=== PATIENT | male | born 1945 | race Caucasian/White ===

== ENCOUNTER 2016-07-21 15:59 | Inpatient (IN) | payer MEDICARE, MEDICAID ==
[2016-07-21 16:28] LABS: BASO # 0.1 K/uL (0.0-0.2); BASO % 0.8 % (0.0-2.0); EOS # 0.2 K/uL (0.0-0.7); EOS % 2.4 % (0.0-4.0); HEMATOCRIT 39.2 % (35.0-51.0); LYMPH # 1.5 K/uL (1.0-4.3); LYMPH % 20.3 % (20.0-40.0); MEAN CELL VOLUME 80.7 fL (80.0-94.0); MEAN CORPUSCULAR HEMOGLOBIN 25.8 pg (27.0-31.0); MEAN CORPUSCULAR HGB CONC 31.9 g/dL (33.0-37.0); MONO # 0.6 K/uL (0.0-0.8); RED CELL DISTRIBUTION WIDTH 14.1 % (11.5-14.5); WHITE BLOOD COUNT 7.4 K/uL (4.8-10.8)
[2016-07-21] MEDS ORDERED: Sodium Chloride 0.9% 1,000 ML IV ONE (16:29)
[2016-07-21 16:39] LABS: POTASSIUM 4.9 mmol/L (3.6-5.2)
[2016-07-21 16:41] LABS: BILIRUBIN,TOTAL 0.4 mg/dL (0.2-1.3)
[2016-07-21 16:42] LABS: ALB/GLOB RATIO 1.4 (1.0-2.1); CALCIUM 8.6 mg/dl (8.6-10.4)
[2016-07-21 16:46] LABS: INR 1.3
[2016-07-21] MEDS ORDERED: (Novolin R) Insulin Human Regular 100 units/ml vial IV STA ×2 (16:49→19:51)
[2016-07-21 17:02] LABS: VENOUS BLOOD GAS BASE EXCESS 1.6 mmol/L (0.0-2.0); VENOUS BLOOD GAS PCO2 56 mmHg (40-60); VENOUS BLOOD PH 7.32 (7.32-7.43)
--- NOTE | 2016-07-21 17:06 | C.PDOC ---
Addendum entered and electronically signed by Greg Santiago MD 07/21/16 22:13 : Addendum Addendum: 07/21/16 22:13 2215: Dr. Chu returned call, would like pt obs for dehydration, hyperglycemia Original Note: History Of Present Illness <Earnestien Becker - Last Filed: 07/21/16 19:04> <Greg Santiago - Last Filed: 07/21/16 22:12> <Annika Ocampo - Last Filed: 07/22/16 18:44> Patient is a 71 year old male with a history of diabetes who presents to the ER with a complaint of increased weakness and altered mental status since this morning. Patient states he felt increased weakness and is unsure of what happened. Patient is a poor historian and does not answer any other questions. (Earnestine Becker) History Per: Patient History/Exam Limitations: no limitations Onset/Duration Of Symptoms: Hrs (Since AM) Current Symptoms Are (Timing): Still Present <Earnestine Becker - Last Filed: 07/21/16 19:04> <Greg Santiago - Last Filed: 07/21/16 22:12> <Annika Ocampo - Last Filed: 07/22/16 18:44> Time Seen by Provider: 07/21/16 16:04 Chief Complaint (Nursing): High Blood Sugar Past Medical History Reviewed: Historical Data, Nursing Documentation, Vital Signs - Medical History PMH: CVA, Dementia, Diabetes (type 2), HTN, Hypercholesterolemia, Sexually Transmitted Disease Surgical History: CABG, Coronary Stent (x2) Family History: States: No Known Family Hx - Social History Hx Tobacco Use: No Hx Alcohol Use: No Hx Substance Use: No - Immunization History Hx Tetanus Toxoid Vaccination: No Hx Influenza Vaccination: No Hx Pneumococcal Vaccination: No <Earnestine Becker - Last Filed: 07/21/16 19:04> Vital Signs: Last Vital Signs Temp 98.3 F 07/22/16 15:32 Pulse 66 07/22/16 15:32 Resp 20 07/22/16 15:32 BP 172/86 H 07/22/16 18:36 Pulse Ox 100 07/22/16 15:32 - [facility] Procedures HOME MANAGEMENT TREATMENT USING ASSIST EQUIPMENT (10/05/15) THERAPEUTIC EXERCISE TREATMENT OF MUSCULOSK LOW BACK/LE (10/05/15) Review Of Systems Except As Marked, All Systems Reviewed And Found Negative. Neurological: Positive for: Weakness, Altered Mental Status <Earnestine Becker - Last Filed: 07/21/16 19:04> Physical Exam - Physical Exam Appears: Non-toxic Skin: Normal Color, Warm, Diaphoretic (Mild), No Pale, No Rash Head: Atraumatic, Normacephalic Eye(s): bilateral: Normal Inspection, PERRL, EOMI Oral Mucosa: Moist Neck: Normal ROM, Supple Chest: Symmetrical, No Tenderness Cardiovascular: Rhythm Regular, No Friction Rub, No Murmur Respiratory: Normal Breath Sounds, No Rales, No Rhonchi, No Wheezing Gastrointestinal/Abdominal: Soft, No Tenderness Back: Normal Inspection, No CVA Tenderness Extremity: Normal ROM, No Tenderness, No Swelling Neurological/Psych: Other (Oriented x2. Follows commands appropriately.) <Earnestine Becker - Last Filed: 07/21/16 19:04> ED Course And Treatment - Laboratory Results Result Diagrams: 07/21/16 16:25 07/21/16 16:25 O2 Sat by Pulse Oximetry: 98 (Room air) Pulse Ox Interpretation: Normal Progress Note: EKG and blood work ordered. Insulin and IV fluids administered. <Earnestine Becker - Last Filed: 07/21/16 19:04> - Laboratory Results Result Diagrams: 07/21/16 16:25 07/21/16 16:25 <Greg Santiago - Last Filed: 07/21/16 22:12> - Laboratory Results Result Diagrams: 07/21/16 16:25 07/21/16 16:25 <Annika Ocampo - Last Filed: 07/22/16 18:44> Medical Decision Making <Earnestine Becker - Last Filed: 07/21/16 19:04> <Greg Santiago - Last Filed: 07/21/16 22:12> <Annika Ocampo - Last Filed: 07/22/16 18:44> Medical Decision Making: Several calls placed to Dr. Chu (Earnestine Becker) signed over @ 1900 to f/u labs and w/u for pt c/o increased glucose- unclear of insulin/diet regimen. Denies c/o CP with better glucose control in ED, pt feels hungry and wants d/c. labs, cxr, ekg wnl (no sig changes from prior) from [id number] Chu- pt prefers d/c home and opt f/u, this MD concurs (Greg Santiago) Disposition - Disposition Disposition Time: 18:59 - POA Present On Arrival: Poor Glycemic Control <Earnestine Becker - Last Filed: 07/21/16 19:04> Doctor Will See Patient In The: Office Counseled Patient/Family Regarding: Studies Performed, Diagnosis - Disposition Disposition Time: 20:18 <Greg Santiago - Last Filed: 07/21/16 22:12> <Annika Ocampo - Last Filed: 07/22/16 18:44> - Disposition Disposition: HOME/ ROUTINE Condition: GOOD - Clinical Impression Clinical Impression: Diabetes mellitus type 2, uncomplicated, Uncontrolled diabetes mellitus - Scribe Statement The provider has reviewed the documentation as recorded by the Scribe <Earnestine Becker - Last Filed: 07/21/16 19:04> <Greg Santiago - Last Filed: 07/21/16 22:12> - PA / BICYCLE ASSEMBLER / Resident Statement MD/DO has reviewed & agrees with the documentation as recorded. <Annika Ocampo - Last Filed: 07/22/16 18:44> - Scribe Statement Alessandro Agosto All medical record entries made by the Scribe were at my direction and personally dictated by me. I have reviewed the chart and agree that the record accurately reflects my personal performance of the history, physical exam, medical decision making, and the department course for this patient. I have also personally directed, reviewed, and agree with the discharge instructions and disposition. (Earnestine Becker)
[2016-07-21] MEDS ORDERED: (Novolin R) Insulin Human Regular 100 units/ml vial ONE ×2 (17:18→19:56)
--- NOTE | 2016-07-21 17:46 | RAD ---
PROCEDURE: CHEST RADIOGRAPH, 1 VIEW HISTORY: weakness, chest pain COMPARISON: 05/22/16. FINDINGS: LUNGS: Clear. PLEURA: No pneumothorax or pleural fluid seen. CARDIOVASCULAR: Sternotomy wires and CABG clips. Cardiomegaly. OSSEOUS STRUCTURES: No significant abnormalities. VISUALIZED UPPER ABDOMEN: Normal. OTHER FINDINGS: None. IMPRESSION: Cardiomegaly
[2016-07-21 19:29] LABS: RBC URINE < 1 /hpf (0-3); URINE BILIRUBIN NEGATIVE (NEGATIVE); URINE COLOR Yellow (YELLOW); URINE GLUCOSE (UA) 3+ mg/dL (Normal); URINE KETONE NEGATIVE (NEGATIVE); URINE LEUKOCYTE ESTERASE NEG Leu/uL (Negative); URINE PROTEIN 2+ mg/dL (NEGATIVE); URINE UROBILINOGEN NORMAL mg/dL (0.2-1.0); WBC URINE < 1 /hpf (0-5)
[2016-07-21 19:30] LABS: URINE BLOOD TRACE (NEGATIVE)
[2016-07-21] MEDS ORDERED: (Novolin R) Insulin Human Regular 100 units/ml vial SC ONE (19:58)
[2016-07-22] MEDS ORDERED: Oxycodone/Acetaminophen 5/325 mg Tab PO PRN (08:01)
--- NOTE | 2016-07-22 08:11 | CP.PCM.HP ---
History of Present Illness - History of Present Illness History of Present Illness: Mr. Hamm is a 69-year-old gentleman with history of type 2 diabetes on insulin that was complicated with coronary artery disease he underwent bypass surgery twice and an evaluation with a stress test was negative last year. The last cardiac catheterization had patent MEDRANO bifurcates into the left anterior descending and the diagonal. He had some deterioration with his mental status was thought to be secondary to dehydration did well and that's been few months he did not show up to the office is being followed by his private medical doctor and now he is admitted through the emergency room with weakness, near syncope, debility, with signs of dehydration Present on Admission - Present on Admission Any Indicators Present on Admission: No Review of Systems - Review of Systems Systems not reviewed;Unavailable: Acuity of Condition - Constitutional Constitutional: Anorexia, Weakness - EENT Eyes: absent: Discharge Ears: absent: Ear Discharge Nose/Mouth/Throat: absent: Epistaxis - Cardiovascular Cardiovascular: absent: Acrocyanosis, Chest Pain, Chest Pain at Rest, Diaphoresis, Orthopnea, Syncope - Respiratory Respiratory: absent: Cough, Dyspnea, Hemoptysis - Gastrointestinal Gastrointestinal: absent: Abdominal Pain, Diarrhea, Vomiting - Genitourinary Genitourinary: absent: Change in Urinary Stream Past Patient History - Infectious Disease Hx of Infectious Diseases: None - Past Medical History & Family History Past Medical History?: Yes - Past Social History Smoking Status: Never Smoked - CARDIAC Hx Cardiac Disorders: Yes Hx Hypercholesterolemia: Yes Hx Hypertension: Yes - PULMONARY Hx Respiratory Disorders: No Hx Chronic Obstructive Pulmonary Disease (COPD): No - NEUROLOGICAL Hx Neurological Disorder: Yes HX Cerebrovascular Accident: Yes - HEENT Hx HEENT Problems: No - RENAL Hx Chronic Kidney Disease: No - ENDOCRINE/METABOLIC Hx Endocrine Disorders: Yes Hx Diabetes Mellitus Type 2: Yes - HEMATOLOGICAL/ONCOLOGICAL Hx Blood Disorders: No - INTEGUMENTARY Hx Dermatological Problems: No - MUSCULOSKELETAL/RHEUMATOLOGICAL Hx Musculoskeletal Disorders: No Hx Arthritis: No Hx Falls: Yes Hx Rheumatoid Arthritis: No - GASTROINTESTINAL Hx Gastrointestinal Disorders: No - GENITOURINARY/GYNECOLOGICAL Hx Genitourinary Disorders: No - PSYCHIATRIC Hx Psychophysiologic Disorder: No Hx Substance Use: No - SURGICAL HISTORY Hx Surgeries: Yes Hx Coronary Artery Bypass Graft: Yes Hx Coronary Stent: Yes (x2) - ANESTHESIA Hx Anesthesia: Yes Hx Anesthesia Reactions: No Hx Malignant Hyperthermia: No Meds Allergies/Adverse Reactions: Allergies Allergy/AdvReac Type Severity Reaction Status Date / Time No Known Allergies Allergy Verified 07/21/16 16:08 Physical Exam - Constitutional Appears: Non-toxic - Head Exam Head Exam: ATRAUMATIC - Eye Exam Eye Exam: EOMI - ENT Exam ENT Exam: Mucous Membranes Dry - Neck Exam Neck exam: Negative for: Lymphadenopathy, Thyromegaly - Respiratory Exam Respiratory Exam: Clear to Auscultation Bilateral. absent: Rales - Cardiovascular Exam Cardiovascular Exam: REGULAR RHYTHM, Systolic Murmur - GI/Abdominal Exam GI & Abdominal Exam: Normal Bowel Sounds. absent: Organomegaly - Rectal Exam Rectal Exam: Deferred - Extremities Exam Extremities exam: Positive for: normal inspection. Negative for: calf tenderness - Neurological Exam Neurological exam: Alert, Oriented x3 - Psychiatric Exam Psychiatric exam: Normal Affect - Skin Skin Exam: Dry Results - Vital Signs Recent Vital Signs: Last Vital Signs Temp 98.6 F 07/21/16 23:48 Pulse 81 07/21/16 23:48 Resp 18 07/21/16 23:48 BP 153/78 H 07/21/16 23:48 Pulse Ox 98 07/21/16 23:48 - Labs Result Diagrams: 07/23/16 11:22 07/23/16 11:22 Labs: Laboratory Results - last 24 hr 07/22/16 07/22/16 02:06 07:13 POC Glucose (mg/dL) 233 H 263 H Assessment & Plan (1) Near syncope Status: Acute (2) Diabetes Status: Chronic (3) Physical debility Status: Chronic (4) Dehydration Status: Acute Comment: on IV fluid (5) Change in mental status Status: Acute Priority: High Comment: dehydration (6) CAD (coronary artery disease) Status: Chronic Comment: post CABG Decision To Admit - Pt Status Changed To: Hospital Disposition Of: Inpatient - Admit Certification Admit to Inpatient:: After my assessment, the patient will require hospitalization for at least two midnights. This is because of the severity of symptoms shown, intensity of services needed, and/or the medical risk in this patient being treated as an outpatient. - InPatient: Physician Admission Certification:: yes - . Bed Request Type: Regular
[2016-07-22] MEDS: Sodium Chloride 0.9% 1,000 ML IV SCH ×2 (09:24→19:24)
[2016-07-22] MEDS: Enoxaparin 40 mg Syringe SC SCH (09:24)
[2016-07-22] MEDS: (Novolin R) Insulin Human Regular 100 units/ml vial SC SCH ×3 (12:12→21:29)
[2016-07-22] MEDS: (Lantus) Insulin Glargine, Recombinant SC SCH (21:34)
[2016-07-23] MEDS: Sodium Chloride 0.9% 1,000 ML IV SCH ×2 (06:14→18:30)
[2016-07-23] MEDS: (Novolin R) Insulin Human Regular 100 units/ml vial SC SCH ×4 (08:28→22:19)
[2016-07-23 11:29] LABS: EOS # 0.2 K/uL (0.0-0.7); LYMPH # 2.1 K/uL (1.0-4.3); MONO # 0.7 K/uL (0.0-0.8); WHITE BLOOD COUNT 8.8 K/uL (4.8-10.8)
[2016-07-23 11:36] LABS: CHLORIDE 100 mmol/L (98-107)
[2016-07-23 11:37] LABS: POTASSIUM 3.9 mmol/L (3.6-5.2); SODIUM 135 mmol/L (132-148)
[2016-07-23 11:39] LABS: ALB/GLOB RATIO 1.3 (1.0-2.1); BASO # 0.1 K/uL (0.0-0.2); BASO % 0.6 % (0.0-2.0); CARBON DIOXIDE 25 mmol/L (22-30); CHOLESTEROL 124 mg/dL (0-199); EOS % 2.5 % (0.0-4.0); GFR AFRICAN-AMERICAN > 60; HEMATOCRIT 37.5 % (35.0-51.0); LYMPH % 23.6 % (20.0-40.0); MEAN CORPUSCULAR HEMOGLOBIN 25.8 pg (27.0-31.0); MEAN CORPUSCULAR HGB CONC 32.2 g/dL (33.0-37.0); MEAN PLATELET VOLUME 10.4 fL (7.2-11.7); MONO % 7.9 % (0.0-10.0); RED CELL DISTRIBUTION WIDTH 13.8 % (11.5-14.5); TOTAL PROTEIN 6.3 g/dL (6.3-8.3)
[2016-07-23 11:40] LABS: ALKALINE PHOSPHATASE 104 U/L (38-126); ALT/SGPT 54 U/L (21-72); AST/SGOT 21 U/L (17-59); BILIRUBIN,TOTAL 0.2 mg/dL (0.2-1.3); BLOOD UREA NITROGEN 19 mg/dL (9-20); CALCIUM 8.3 mg/dl (8.6-10.4); GLUCOSE,RANDOM 229 mg/dL (75-110)
[2016-07-23] MEDS: Enoxaparin 40 mg Syringe SC SCH (11:49)
--- NOTE | 2016-07-23 13:00 | CP.PCM.PN ---
Subjective - Date & Time of Evaluation Date of Evaluation: 07/23/16 Time of Evaluation: 13:00 - Subjective Subjective: Improved dehydration, noncompliance with medication A1c 9.6, difficult condition at home, arrange for rehabilitation Objective - Vital Signs/Intake and Output Vital Signs (last 24 hours): Temp Pulse Resp BP Pulse Ox 98.4 F 75 20 161/72 H 98 07/23/16 07:23 07/23/16 07:23 07/23/16 07:23 07/23/16 11:50 07/23/16 07:23 Intake and Output: 07/23/16 07/23/16 06:59 18:59 Intake Total 2000 Output Total 1000 Balance 1000 - Medications Medications: Current Medications Acetaminophen (Tylenol 325mg Tab) 650 mg PO Q6 PRN PRN Reason: Fever >100.4 F Aspirin (Ecotrin) 81 mg PO DAILY [facility] Last Admin: 07/23/16 11:49 Dose: 81 mg Docusate Sodium (Colace) 100 mg PO BID [facility] Last Admin: 07/23/16 11:50 Dose: 100 mg Enoxaparin Sodium (Lovenox) 40 mg SC DAILY [facility] Last Admin: 07/23/16 11:49 Dose: 40 mg Glimepiride (Amaryl) 2 mg PO ACB [facility] Last Admin: 07/23/16 08:28 Dose: 2 mg Guaifenesin/Dextromethorphan (Robitussin Dm) 10 ml PO Q4H PRN PRN Reason: Cough and congestion Sodium Chloride (Sodium Chloride 0.9%) 1,000 mls @ 100 mls/hr IV .Q10H [facility] Last Admin: 07/23/16 06:14 Dose: 100 mls/hr Insulin Glargine (Lantus) 20 unit SC HS [facility] Last Admin: 07/22/16 21:34 Dose: 20 units Insulin Human Regular (Novolin R) 0 unit SC ACHS [facility] PRN Reason: Protocol Last Admin: 07/23/16 12:15 Dose: 3 unit Lidocaine (Lidoderm) 1 ea TD DAILY [facility] Lisinopril (Zestril) 20 mg PO DAILY [facility] Last Admin: 07/23/16 11:49 Dose: 20 mg Metformin HCl (Glucophage) 1,000 mg PO BIDCC [facility] Last Admin: 07/23/16 08:28 Dose: 1,000 mg Metoprolol Tartrate (Lopressor) 25 mg PO BID [facility] Last Admin: 07/23/16 11:50 Dose: 25 mg Ondansetron HCl (Zofran Inj) 4 mg IVP Q6 PRN PRN Reason: Nausea/Vomiting Oxycodone/Acetaminophen (Percocet 5/325 Mg Tab) 1 tab PO Q4 PRN PRN Reason: Pain, moderate (4-7) Stop: 07/25/16 08:02 Last Admin: 07/22/16 09:21 Dose: 1 tab Pneumococcal Polyvalent Vaccine (Pneumovax 23 Vaccine) 0.5 ml IM .ONCE ONE Stop: 07/24/16 10:01 Rosuvastatin Calcium (Crestor) 10 mg PO HS [facility] Last Admin: 07/22/16 21:23 Dose: 10 mg Sucralfate (Carafate Tab) 1 gm PO BID [facility] Last Admin: 07/23/16 11:49 Dose: 1 gm Tamsulosin HCl (Flomax) 0.4 mg PO DAILY [facility] Last Admin: 07/23/16 11:49 Dose: 0.4 mg - Labs Labs: 07/23/16 11:22 07/23/16 11:22 PT 14.1 SECONDS (9.7-12.2) H 07/21/16 16:25 INR 1.3 07/21/16 16:25 APTT 28 SECONDS (21-34) 07/21/16 16:25 - Constitutional Appears: Non-toxic - Head Exam Head Exam: ATRAUMATIC - Eye Exam Eye Exam: EOMI - ENT Exam ENT Exam: Mucous Membranes Dry - Neck Exam Neck Exam: absent: Lymphadenopathy, Thyromegaly - Respiratory Exam Respiratory Exam: Clear to Ausculation Bilateral. absent: Chest Wall Tenderness , Rales - Cardiovascular Exam Cardiovascular Exam: REGULAR RHYTHM, Murmur - GI/Abdominal Exam GI & Abdominal Exam: Soft, Normal Bowel Sounds. absent: Organomegaly - Rectal Exam Rectal Exam: Deferred - Extremities Exam Extremities Exam: Normal Capillary Refill. absent: Calf Tenderness - Neurological Exam Neurological Exam: Alert, Oriented x3 - Psychiatric Exam Psychiatric exam: Depressed - Skin Skin Exam: Dry Assessment and Plan (1) Near syncope Status: Acute (2) Diabetes Status: Chronic (3) Physical debility Status: Chronic (4) Dehydration Status: Acute (5) Change in mental status Status: Acute (6) CAD (coronary artery disease) Status: Chronic
[2016-07-23] MEDS: guaiFENesin DM 200 mg-20 mg/10 ml UD PO PRN ×2 (14:26→18:29)
[2016-07-23] MEDS: Lidocaine 5% Patch TD SCH (14:26)
--- NOTE | 2016-07-23 18:07 | CARD ---
APPROVED REPORT EKG Measurement Heart [id number] <Conclusion> Sinus rhythm with 1st degree AV block Left anterior fascicular block Moderate voltage criteria for LVH, may be normal variant T wave abnormality, consider lateral ischemia Abnormal ECG
[2016-07-23] MEDS: (Lantus) Insulin Glargine, Recombinant SC SCH (22:17)
[2016-07-24] MEDS: Sodium Chloride 0.9% 1,000 ML IV SCH ×2 (00:15→10:38)
[2016-07-24] MEDS: (Novolin R) Insulin Human Regular 100 units/ml vial SC SCH ×4 (08:35→21:21)
[2016-07-24] MEDS ORDERED: Pneumococcal 23-Valent Vaccine IM ONE (10:00)
[2016-07-24] MEDS: Enoxaparin 40 mg Syringe SC SCH (10:36)
[2016-07-24] MEDS: Lidocaine 5% Patch TD SCH (10:37)
--- NOTE | 2016-07-24 19:02 | CP.PCM.PN ---
Subjective - Date & Time of Evaluation Date of Evaluation: 07/24/16 Time of Evaluation: 13:00 - Subjective Subjective: weak with debility, improved dehydration Objective - Vital Signs/Intake and Output Vital Signs (last 24 hours): Temp Pulse Resp BP Pulse Ox 98.3 F 60 20 144/81 99 07/24/16 15:07 07/24/16 15:07 07/24/16 15:07 07/24/16 17:51 07/24/16 15:07 Intake and Output: 07/24/16 07/25/16 18:59 06:59 Intake Total 1200 Balance 1200 - Medications Medications: Current Medications Acetaminophen (Tylenol 325mg Tab) 650 mg PO Q6 PRN PRN Reason: Fever >100.4 F Aspirin (Ecotrin) 81 mg PO DAILY [facility] Last Admin: 07/24/16 10:36 Dose: 81 mg Docusate Sodium (Colace) 100 mg PO BID [facility] [place] Last Admin: 07/24/16 17:50 Dose: 100 mg Enoxaparin Sodium (Lovenox) 40 mg SC DAILY [facility] [place] Last Admin: 07/24/16 10:36 Dose: 40 mg Glimepiride (Amaryl) 2 mg PO ACB [facility] [place] Last Admin: 07/24/16 08:33 Dose: 2 mg Guaifenesin/Dextromethorphan (Robitussin Dm) 10 ml PO Q4H PRN PRN Reason: Cough and congestion Last Admin: 07/23/16 18:29 Dose: 10 ml Sodium Chloride (Sodium Chloride 0.9%) 1,000 mls @ 100 mls/hr IV .Q10H [facility] [place] Last Admin: 07/24/16 10:38 Dose: Not Given Insulin Glargine (Lantus) 20 unit SC HS [facility] [place] Last Admin: 07/23/16 22:17 Dose: 20 units Insulin Human Regular (Novolin R) 0 unit SC ACHS [facility] PRN Reason: Protocol Last Admin: 07/24/16 17:51 Dose: Not Given Lidocaine (Lidoderm) 1 ea TD DAILY [facility] [place] Last Admin: 07/24/16 10:37 Dose: 1 ea Lisinopril (Zestril) 20 mg PO DAILY [facility] [place] Last Admin: 07/24/16 10:35 Dose: 20 mg Metformin HCl (Glucophage) 1,000 mg PO BIDCC [facility] [place] Last Admin: 07/24/16 17:50 Dose: 1,000 mg Metoprolol Tartrate (Lopressor) 25 mg PO BID [facility] [place] Last Admin: 07/24/16 17:51 Dose: 25 mg Ondansetron HCl (Zofran Inj) 4 mg IVP Q6 PRN PRN Reason: Nausea/Vomiting Oxycodone/Acetaminophen (Percocet 5/325 Mg Tab) 1 tab PO Q4 PRN PRN Reason: Pain, moderate (4-7) Stop: 07/25/16 08:02 Last Admin: 07/22/16 09:21 Dose: 1 tab Rosuvastatin Calcium (Crestor) 10 mg PO HS [facility] [place] Last Admin: 07/23/16 22:17 Dose: 10 mg Sucralfate (Carafate Tab) 1 gm PO BID [facility] [place] Last Admin: 07/24/16 17:50 Dose: 1 gm Tamsulosin HCl (Flomax) 0.4 mg PO DAILY [facility] [place] Last Admin: 07/24/16 10:36 Dose: 0.4 mg - Labs Labs: PT 14.1 SECONDS (9.7-12.2) H 07/21/16 16:25 INR 1.3 07/21/16 16:25 APTT 28 SECONDS (21-34) 07/21/16 16:25 - Constitutional Appears: Non-toxic - Head Exam Head Exam: ATRAUMATIC - Eye Exam Eye Exam: EOMI - ENT Exam ENT Exam: Mucous Membranes Moist - Neck Exam Neck Exam: absent: Lymphadenopathy, Thyromegaly - Respiratory Exam Respiratory Exam: Clear to Ausculation Bilateral. absent: Rales - Cardiovascular Exam Cardiovascular Exam: REGULAR RHYTHM, Murmur - GI/Abdominal Exam GI & Abdominal Exam: Normal Bowel Sounds. absent: Organomegaly - Rectal Exam Rectal Exam: Deferred - Extremities Exam Extremities Exam: Normal Capillary Refill. absent: Calf Tenderness - Neurological Exam Neurological Exam: Alert, Oriented x3 - Psychiatric Exam Psychiatric exam: Normal Mood - Skin Skin Exam: Dry Assessment and Plan (1) Diabetes Status: Chronic (2) Change in mental status Status: Acute (3) Dehydration Status: Acute (4) Near syncope Status: Acute (5) Physical debility Status: Chronic (6) CAD (coronary artery disease) Status: Chronic
[2016-07-24] MEDS: (Lantus) Insulin Glargine, Recombinant SC SCH (21:35)
[2016-07-24] MEDS: guaiFENesin DM 200 mg-20 mg/10 ml UD PO PRN (21:44)
[2016-07-25] MEDS: (Novolin R) Insulin Human Regular 100 units/ml vial SC SCH ×4 (08:16→21:53)
[2016-07-25] MEDS: Enoxaparin 40 mg Syringe SC SCH (09:20)
[2016-07-25] MEDS: Lidocaine 5% Patch TD SCH (10:41)
[2016-07-25] MEDS: guaiFENesin DM 200 mg-20 mg/10 ml UD PO PRN (18:15)
--- NOTE | 2016-07-25 19:34 | CP.PCM.PN ---
Subjective - Date & Time of Evaluation Date of Evaluation: 07/25/16 Time of Evaluation: 12:00 - Subjective Subjective: in bed with debility, for rehab Objective - Vital Signs/Intake and Output Vital Signs (last 24 hours): Temp Pulse Resp BP Pulse Ox 98.4 F 61 20 118/63 98 07/25/16 15:00 07/25/16 15:00 07/25/16 15:00 07/25/16 18:17 07/25/16 15:00 Intake and Output: 07/25/16 07/26/16 18:59 06:59 Intake Total 800 Balance 800 - Medications Medications: Current Medications Acetaminophen (Tylenol 325mg Tab) 650 mg PO Q6 PRN PRN Reason: Fever >100.4 F Aspirin (Ecotrin) 81 mg PO DAILY [facility] Last Admin: 07/25/16 09:18 Dose: 81 mg Docusate Sodium (Colace) 100 mg PO BID [facility] Last Admin: 07/25/16 18:16 Dose: 100 mg Enoxaparin Sodium (Lovenox) 40 mg SC DAILY [facility] Last Admin: 07/25/16 09:20 Dose: 40 mg Glimepiride (Amaryl) 2 mg PO ACB [facility] Last Admin: 07/25/16 08:34 Dose: 2 mg Guaifenesin/Dextromethorphan (Robitussin Dm) 10 ml PO Q4H PRN PRN Reason: Cough and congestion Last Admin: 07/25/16 18:15 Dose: 10 ml Insulin Glargine (Lantus) 20 unit SC HS [facility] Last Admin: 07/24/16 21:35 Dose: 20 units Insulin Human Regular (Novolin R) 0 unit SC ACHS [facility] PRN Reason: Protocol Last Admin: 07/25/16 16:40 Dose: 3 unit Lidocaine (Lidoderm) 1 ea TD DAILY [facility] Last Admin: 07/25/16 10:41 Dose: 1 ea Lisinopril (Zestril) 20 mg PO DAILY [facility] Last Admin: 07/25/16 10:41 Dose: 20 mg Metformin HCl (Glucophage) 1,000 mg PO BIDCC [facility] Last Admin: 07/25/16 17:30 Dose: 1,000 mg Metoprolol Tartrate (Lopressor) 25 mg PO BID [facility] Last Admin: 07/25/16 18:17 Dose: 25 mg Ondansetron HCl (Zofran Inj) 4 mg IVP Q6 PRN PRN Reason: Nausea/Vomiting Rosuvastatin Calcium (Crestor) 10 mg PO HS [facility] Last Admin: 07/24/16 21:34 Dose: 10 mg Sucralfate (Carafate Tab) 1 gm PO BID [facility] Last Admin: 07/25/16 18:15 Dose: 1 gm Tamsulosin HCl (Flomax) 0.4 mg PO DAILY [facility] Last Admin: 07/25/16 09:18 Dose: 0.4 mg - Labs Labs: PT 14.1 SECONDS (9.7-12.2) H 07/21/16 16:25 INR 1.3 07/21/16 16:25 APTT 28 SECONDS (21-34) 07/21/16 16:25 - Constitutional Appears: Non-toxic - Head Exam Head Exam: ATRAUMATIC - Eye Exam Eye Exam: EOMI - ENT Exam ENT Exam: Mucous Membranes Moist - Neck Exam Neck Exam: absent: Lymphadenopathy, Thyromegaly - Respiratory Exam Respiratory Exam: Clear to Ausculation Bilateral. absent: Rales - Cardiovascular Exam Cardiovascular Exam: REGULAR RHYTHM, Murmur - GI/Abdominal Exam GI & Abdominal Exam: Normal Bowel Sounds. absent: Organomegaly - Rectal Exam Rectal Exam: Deferred - Extremities Exam Extremities Exam: Normal Capillary Refill. absent: Calf Tenderness - Neurological Exam Neurological Exam: Alert, Oriented x3 - Psychiatric Exam Psychiatric exam: Normal Mood - Skin Skin Exam: Dry Assessment and Plan (1) Diabetes Status: Chronic (2) Change in mental status Status: Acute (3) Dehydration Status: Acute (4) Near syncope Status: Acute (5) Physical debility Status: Chronic (6) CAD (coronary artery disease) Status: Chronic
[2016-07-25] MEDS: (Lantus) Insulin Glargine, Recombinant SC SCH (21:52)
[2016-07-26] MEDS: guaiFENesin DM 200 mg-20 mg/10 ml UD PO PRN ×2 (05:25→18:07)
[2016-07-26] MEDS: (Novolin R) Insulin Human Regular 100 units/ml vial SC SCH ×4 (08:08→21:23)
[2016-07-26] MEDS: Enoxaparin 40 mg Syringe SC SCH (09:39)
[2016-07-26] MEDS: Lidocaine 5% Patch TD SCH (09:41)
--- NOTE | 2016-07-26 17:11 | CP.PCM.PN ---
Subjective - Date & Time of Evaluation Date of Evaluation: 07/26/16 Time of Evaluation: 14:00 - Subjective Subjective: NAD for rehab, observe Objective - Vital Signs/Intake and Output Vital Signs (last 24 hours): Temp Pulse Resp BP Pulse Ox 99.1 F 62 21 149/77 99 07/26/16 16:00 07/26/16 16:00 07/26/16 16:00 07/26/16 16:00 07/26/16 16:00 Intake and Output: 07/26/16 07/26/16 06:59 18:59 Intake Total 1350 Output Total 550 700 Balance 800 -700 - Medications Medications: Current Medications Acetaminophen (Tylenol 325mg Tab) 650 mg PO Q6 PRN PRN Reason: Fever >100.4 F Aspirin (Ecotrin) 81 mg PO DAILY [facility] Last Admin: 07/26/16 09:39 Dose: 81 mg Docusate Sodium (Colace) 100 mg PO BID [facility] Last Admin: 07/26/16 09:39 Dose: 100 mg Enoxaparin Sodium (Lovenox) 40 mg SC DAILY [facility] Last Admin: 07/26/16 09:39 Dose: 40 mg Glimepiride (Amaryl) 2 mg PO ACB [facility] Last Admin: 07/26/16 08:05 Dose: 2 mg Guaifenesin/Dextromethorphan (Robitussin Dm) 10 ml PO Q4H PRN PRN Reason: Cough and congestion Last Admin: 07/26/16 05:25 Dose: 10 ml Insulin Glargine (Lantus) 20 unit SC HS [facility] Last Admin: 07/25/16 21:52 Dose: 20 units Insulin Human Regular (Novolin R) 0 unit SC ACHS [facility] PRN Reason: Protocol Last Admin: 07/26/16 14:42 Dose: Not Given Lidocaine (Lidoderm) 1 ea TD DAILY [facility] Last Admin: 07/26/16 09:41 Dose: 1 ea Lisinopril (Zestril) 20 mg PO DAILY [facility] Last Admin: 07/26/16 09:39 Dose: 20 mg Metformin HCl (Glucophage) 1,000 mg PO BIDCC [facility] Last Admin: 07/26/16 08:07 Dose: 1,000 mg Metoprolol Tartrate (Lopressor) 25 mg PO BID [facility] Last Admin: 07/26/16 09:39 Dose: 25 mg Ondansetron HCl (Zofran Inj) 4 mg IVP Q6 PRN PRN Reason: Nausea/Vomiting Rosuvastatin Calcium (Crestor) 10 mg PO HS [facility] Last Admin: 07/25/16 21:52 Dose: 10 mg Sucralfate (Carafate Tab) 1 gm PO BID [facility] Last Admin: 07/26/16 09:39 Dose: 1 gm Tamsulosin HCl (Flomax) 0.4 mg PO DAILY [facility] Last Admin: 07/26/16 09:39 Dose: 0.4 mg - Labs Labs: PT 14.1 SECONDS (9.7-12.2) H 07/21/16 16:25 INR 1.3 07/21/16 16:25 APTT 28 SECONDS (21-34) 07/21/16 16:25 - Constitutional Appears: Non-toxic - Head Exam Head Exam: ATRAUMATIC - Eye Exam Eye Exam: EOMI - ENT Exam ENT Exam: Mucous Membranes Moist - Neck Exam Neck Exam: absent: Lymphadenopathy, Thyromegaly - Respiratory Exam Respiratory Exam: Clear to Ausculation Bilateral. absent: Rales - Cardiovascular Exam Cardiovascular Exam: REGULAR RHYTHM, Murmur - GI/Abdominal Exam GI & Abdominal Exam: Normal Bowel Sounds. absent: Organomegaly - Rectal Exam Rectal Exam: Deferred - Extremities Exam Extremities Exam: Normal Capillary Refill. absent: Calf Tenderness - Neurological Exam Neurological Exam: Alert, Oriented x3 - Psychiatric Exam Psychiatric exam: Normal Mood - Skin Skin Exam: Dry Assessment and Plan (1) Diabetes Status: Chronic (2) Change in mental status Status: Acute (3) Dehydration Status: Acute (4) Near syncope Status: Acute (5) Physical debility Status: Chronic (6) CAD (coronary artery disease) Status: Chronic
[2016-07-26] MEDS: (Lantus) Insulin Glargine, Recombinant SC SCH (21:23)
[2016-07-27] MEDS: guaiFENesin DM 200 mg-20 mg/10 ml UD PO PRN ×2 (01:21→10:03)
[2016-07-27] MEDS: (Novolin R) Insulin Human Regular 100 units/ml vial SC SCH ×3 (08:15→17:05)
[2016-07-27] MEDS: Enoxaparin 40 mg Syringe SC SCH (10:02)
[2016-07-27] MEDS: Lidocaine 5% Patch TD SCH (10:02)
--- NOTE | 2016-07-27 15:37 | CP.PCM.PN ---
Subjective - Date & Time of Evaluation Date of Evaluation: 07/27/16 Time of Evaluation: 13:00 - Subjective Subjective: nad hydrated, for rehab Objective - Vital Signs/Intake and Output Vital Signs (last 24 hours): Temp Pulse Resp BP Pulse Ox 98.4 F 65 20 105/54 L 67 L 07/27/16 15:00 07/27/16 15:00 07/27/16 15:00 07/27/16 15:00 07/27/16 15:00 Intake and Output: 07/27/16 07/27/16 06:59 18:59 Intake Total 240 Output Total 400 900 Balance -160 -900 - Medications Medications: Current Medications Acetaminophen (Tylenol 325mg Tab) 650 mg PO Q6 PRN PRN Reason: Fever >100.4 F Last Admin: 07/27/16 14:53 Dose: 650 mg Aspirin (Ecotrin) 81 mg PO DAILY [facility] Last Admin: 07/27/16 10:01 Dose: 81 mg Docusate Sodium (Colace) 100 mg PO BID [facility] Last Admin: 07/27/16 10:02 Dose: 100 mg Enoxaparin Sodium (Lovenox) 40 mg SC DAILY [facility] Last Admin: 07/27/16 10:02 Dose: 40 mg Glimepiride (Amaryl) 2 mg PO ACB [facility] Last Admin: 07/27/16 08:23 Dose: 2 mg Guaifenesin/Dextromethorphan (Robitussin Dm) 10 ml PO Q4H PRN PRN Reason: Cough and congestion Last Admin: 07/27/16 10:03 Dose: 10 ml Insulin Glargine (Lantus) 20 unit SC HS [facility] Last Admin: 07/26/16 21:23 Dose: 20 units Insulin Human Regular (Novolin R) 0 unit SC ACHS [facility] PRN Reason: Protocol Last Admin: 07/27/16 12:19 Dose: 3 unit Lidocaine (Lidoderm) 1 ea TD DAILY [facility] Last Admin: 07/27/16 10:02 Dose: 1 ea Lisinopril (Zestril) 20 mg PO DAILY [facility] Last Admin: 07/27/16 10:11 Dose: 20 mg Metformin HCl (Glucophage) 1,000 mg PO BIDCC [facility] Last Admin: 07/27/16 08:23 Dose: 1,000 mg Metoprolol Tartrate (Lopressor) 25 mg PO BID [facility] Last Admin: 07/27/16 10:01 Dose: 25 mg Ondansetron HCl (Zofran Inj) 4 mg IVP Q6 PRN PRN Reason: Nausea/Vomiting Rosuvastatin Calcium (Crestor) 10 mg PO HS [facility] Last Admin: 07/26/16 21:22 Dose: 10 mg Sucralfate (Carafate Tab) 1 gm PO BID [facility] Last Admin: 07/27/16 10:01 Dose: 1 gm Tamsulosin HCl (Flomax) 0.4 mg PO DAILY [facility] Last Admin: 07/27/16 10:11 Dose: 0.4 mg - Labs Labs: PT 14.1 SECONDS (9.7-12.2) H 07/21/16 16:25 INR 1.3 07/21/16 16:25 APTT 28 SECONDS (21-34) 07/21/16 16:25 - Constitutional Appears: Non-toxic - Head Exam Head Exam: ATRAUMATIC - Eye Exam Eye Exam: EOMI - ENT Exam ENT Exam: Mucous Membranes Moist - Neck Exam Neck Exam: absent: Lymphadenopathy, Thyromegaly - Respiratory Exam Respiratory Exam: Clear to Ausculation Bilateral. absent: Rales - Cardiovascular Exam Cardiovascular Exam: REGULAR RHYTHM, Murmur - GI/Abdominal Exam GI & Abdominal Exam: Normal Bowel Sounds. absent: Organomegaly - Rectal Exam Rectal Exam: Deferred - Extremities Exam Extremities Exam: Normal Capillary Refill. absent: Calf Tenderness - Neurological Exam Neurological Exam: Alert, Oriented x3 - Psychiatric Exam Psychiatric exam: Normal Mood - Skin Skin Exam: Dry Assessment and Plan (1) Diabetes Status: Chronic (2) Change in mental status Status: Acute (3) Dehydration Status: Acute (4) Near syncope Status: Acute (5) Physical debility Status: Chronic (6) CAD (coronary artery disease) Status: Chronic
[2016-07-28] MEDS: (Novolin R) Insulin Human Regular 100 units/ml vial SC SCH ×4 (07:30→21:54)
[2016-07-28] MEDS: Enoxaparin 40 mg Syringe SC SCH (09:09)
[2016-07-28] MEDS: Lidocaine 5% Patch TD SCH (10:11)
[2016-07-28] MEDS: (Lantus) Insulin Glargine, Recombinant SC SCH ×2 (21:57→22:00)
--- NOTE | 2016-07-28 23:31 | CP.PCM.PN ---
Subjective - Date & Time of Evaluation Date of Evaluation: 07/28/16 Time of Evaluation: 13:00 - Subjective Subjective: nad, hydrated, for rehab discussed with case management Objective - Vital Signs/Intake and Output Vital Signs (last 24 hours): Temp Pulse Resp BP Pulse Ox 98.3 F 61 20 148/70 98 07/28/16 16:39 07/28/16 16:39 07/28/16 16:39 07/28/16 18:20 07/28/16 16:39 - Medications Medications: Current Medications Acetaminophen (Tylenol 325mg Tab) 650 mg PO Q6 PRN PRN Reason: Fever >100.4 F Last Admin: 07/27/16 14:53 Dose: 650 mg Aspirin (Ecotrin) 81 mg PO DAILY [facility] Last Admin: 07/28/16 09:14 Dose: 81 mg Docusate Sodium (Colace) 100 mg PO BID [facility] Last Admin: 07/28/16 18:19 Dose: 100 mg Enoxaparin Sodium (Lovenox) 40 mg SC DAILY [facility] Last Admin: 07/28/16 09:09 Dose: 40 mg Glimepiride (Amaryl) 2 mg PO ACB [facility] Last Admin: 07/28/16 08:18 Dose: 2 mg Guaifenesin/Dextromethorphan (Robitussin Dm) 10 ml PO Q4H PRN PRN Reason: Cough and congestion Last Admin: 07/27/16 10:03 Dose: 10 ml Insulin Glargine (Lantus) 20 unit SC HS [facility] [place] Last Admin: 07/28/16 22:00 Dose: 20 units Insulin Human Regular (Novolin R) 0 unit SC ACHS [facility] PRN Reason: Protocol Last Admin: 07/28/16 21:54 Dose: Not Given Lidocaine (Lidoderm) 1 ea TD DAILY [facility] Last Admin: 07/28/16 10:11 Dose: 1 ea Lisinopril (Zestril) 20 mg PO DAILY [facility] Last Admin: 07/28/16 09:10 Dose: 20 mg Metformin HCl (Glucophage) 1,000 mg PO BIDCC [facility] Last Admin: 07/28/16 17:00 Dose: 1,000 mg Metoprolol Tartrate (Lopressor) 25 mg PO BID [facility] [place] Last Admin: 07/28/16 18:20 Dose: 25 mg Ondansetron HCl (Zofran Inj) 4 mg IVP Q6 PRN PRN Reason: Nausea/Vomiting Rosuvastatin Calcium (Crestor) 10 mg PO HS [facility] Last Admin: 07/28/16 21:53 Dose: 10 mg Sucralfate (Carafate Tab) 1 gm PO BID [facility] Last Admin: 07/28/16 18:18 Dose: 1 gm Tamsulosin HCl (Flomax) 0.4 mg PO DAILY [facility] Last Admin: 07/28/16 09:10 Dose: 0.4 mg - Labs Labs: PT 14.1 SECONDS (9.7-12.2) H 07/21/16 16:25 INR 1.3 07/21/16 16:25 APTT 28 SECONDS (21-34) 07/21/16 16:25 - Constitutional Appears: Non-toxic - Head Exam Head Exam: ATRAUMATIC - Eye Exam Eye Exam: EOMI - ENT Exam ENT Exam: Mucous Membranes Moist - Neck Exam Neck Exam: absent: Lymphadenopathy, Thyromegaly - Respiratory Exam Respiratory Exam: Clear to Ausculation Bilateral. absent: Rales - Cardiovascular Exam Cardiovascular Exam: REGULAR RHYTHM, Murmur - GI/Abdominal Exam GI & Abdominal Exam: Normal Bowel Sounds. absent: Organomegaly - Rectal Exam Rectal Exam: Deferred - Extremities Exam Extremities Exam: Normal Capillary Refill. absent: Calf Tenderness - Neurological Exam Neurological Exam: Alert, Oriented x3 - Psychiatric Exam Psychiatric exam: Normal Mood - Skin Skin Exam: Dry Assessment and Plan (1) Diabetes Status: Chronic (2) Change in mental status Status: Acute (3) Dehydration Status: Acute (4) Near syncope Status: Acute (5) Physical debility Status: Chronic (6) CAD (coronary artery disease) Status: Chronic
[2016-07-29] MEDS: (Novolin R) Insulin Human Regular 100 units/ml vial SC SCH ×4 (07:40→21:36)
[2016-07-29] MEDS: guaiFENesin DM 200 mg-20 mg/10 ml UD PO PRN (07:50)
[2016-07-29] MEDS: Enoxaparin 40 mg Syringe SC SCH (10:18)
[2016-07-29] MEDS: Lidocaine 5% Patch TD SCH (10:19)
[2016-07-29] MEDS: (Lantus) Insulin Glargine, Recombinant SC SCH (21:40)
[2016-07-30] MEDS: guaiFENesin DM 200 mg-20 mg/10 ml UD PO PRN (00:30)
[2016-07-30] MEDS: (Novolin R) Insulin Human Regular 100 units/ml vial SC SCH ×4 (07:44→21:43)
[2016-07-30] MEDS: Enoxaparin 40 mg Syringe SC SCH (11:00)
[2016-07-30] MEDS: Lidocaine 5% Patch TD SCH (11:29)
--- NOTE | 2016-07-30 11:59 | CP.PCM.PN ---
Subjective - Date & Time of Evaluation Date of Evaluation: 07/30/16 Time of Evaluation: 12:00 - Subjective Subjective: Stable vitals, no further weakness, still with debility for rehabilitation, awaiting appropriate disposition after discussion with case management Objective - Vital Signs/Intake and Output Vital Signs (last 24 hours): Temp Pulse Resp BP Pulse Ox 97.7 F 72 20 137/62 97 07/30/16 07:19 07/30/16 07:19 07/30/16 07:19 07/30/16 10:59 07/30/16 07:19 Intake and Output: 07/30/16 07/30/16 06:59 18:59 Intake Total 640 Output Total 700 Balance -60 - Medications Medications: Current Medications Acetaminophen (Tylenol 325mg Tab) 650 mg PO Q6 PRN PRN Reason: Fever >100.4 F Last Admin: 07/27/16 14:53 Dose: 650 mg Aspirin (Ecotrin) 81 mg PO DAILY [facility] Last Admin: 07/30/16 11:00 Dose: 81 mg Docusate Sodium (Colace) 100 mg PO BID [facility] Last Admin: 07/30/16 10:59 Dose: 100 mg Enoxaparin Sodium (Lovenox) 40 mg SC DAILY [facility] Last Admin: 07/30/16 11:00 Dose: 40 mg Glimepiride (Amaryl) 2 mg PO ACB [facility] Last Admin: 07/30/16 08:15 Dose: 2 mg Guaifenesin/Dextromethorphan (Robitussin Dm) 10 ml PO Q4H PRN PRN Reason: Cough and congestion Last Admin: 07/30/16 00:30 Dose: 10 ml Insulin Glargine (Lantus) 20 unit SC HS [facility] Last Admin: 07/29/16 21:40 Dose: 20 units Insulin Human Regular (Novolin R) 0 unit SC ACHS [facility] PRN Reason: Protocol Last Admin: 07/30/16 07:44 Dose: Not Given Lidocaine (Lidoderm) 1 ea TD DAILY [facility] Last Admin: 07/30/16 11:29 Dose: 1 ea Lisinopril (Zestril) 20 mg PO DAILY [facility] Last Admin: 07/30/16 10:59 Dose: 20 mg Metformin HCl (Glucophage) 1,000 mg PO BIDCC [facility] Last Admin: 07/30/16 08:15 Dose: 1,000 mg Metoprolol Tartrate (Lopressor) 25 mg PO BID [facility] Last Admin: 07/30/16 10:59 Dose: 25 mg Ondansetron HCl (Zofran Inj) 4 mg IVP Q6 PRN PRN Reason: Nausea/Vomiting Rosuvastatin Calcium (Crestor) 10 mg PO HS [facility] Last Admin: 07/29/16 21:35 Dose: 10 mg Sucralfate (Carafate Tab) 1 gm PO BID [facility] Last Admin: 07/30/16 11:00 Dose: 1 gm Tamsulosin HCl (Flomax) 0.4 mg PO DAILY [facility] Last Admin: 07/30/16 11:00 Dose: 0.4 mg - Labs Labs: PT 14.1 SECONDS (9.7-12.2) H 07/21/16 16:25 INR 1.3 07/21/16 16:25 APTT 28 SECONDS (21-34) 07/21/16 16:25 - Constitutional Appears: Non-toxic - Head Exam Head Exam: ATRAUMATIC - Eye Exam Eye Exam: EOMI - ENT Exam ENT Exam: Mucous Membranes Moist - Neck Exam Neck Exam: absent: Lymphadenopathy, Thyromegaly - Respiratory Exam Respiratory Exam: Clear to Ausculation Bilateral. absent: Rales - Cardiovascular Exam Cardiovascular Exam: REGULAR RHYTHM, Murmur - GI/Abdominal Exam GI & Abdominal Exam: Normal Bowel Sounds. absent: Organomegaly - Rectal Exam Rectal Exam: Deferred - Extremities Exam Extremities Exam: Normal Capillary Refill. absent: Calf Tenderness - Neurological Exam Neurological Exam: Alert, Oriented x3 - Psychiatric Exam Psychiatric exam: Normal Mood - Skin Skin Exam: Dry Assessment and Plan (1) Diabetes Status: Chronic (2) Change in mental status Status: Acute (3) Dehydration Status: Acute (4) Near syncope Status: Acute (5) Physical debility Status: Chronic (6) CAD (coronary artery disease) Status: Chronic
[2016-07-30 13:03] LABS: BASO % 0.5 % (0.0-2.0); EOS # 0.2 K/uL (0.0-0.7); EOS % 3.1 % (0.0-4.0); HEMATOCRIT 36.3 % (35.0-51.0); LYMPH # 2.2 K/uL (1.0-4.3); LYMPH % 28.8 % (20.0-40.0); MEAN CELL VOLUME 80.7 fL (80.0-94.0); MEAN CORPUSCULAR HEMOGLOBIN 26.1 pg (27.0-31.0); MEAN CORPUSCULAR HGB CONC 32.4 g/dL (33.0-37.0); MEAN PLATELET VOLUME 9.9 fL (7.2-11.7); MONO # 0.6 K/uL (0.0-0.8); MONO % 7.5 % (0.0-10.0); RED CELL DISTRIBUTION WIDTH 14.2 % (11.5-14.5); WHITE BLOOD COUNT 7.6 K/uL (4.8-10.8)
[2016-07-30 13:36] LABS: CHLORIDE 102 mmol/L (98-107); POTASSIUM 4.2 mmol/L (3.6-5.2); SODIUM 137 mmol/L (132-148)
[2016-07-30 13:39] LABS: BLOOD UREA NITROGEN 21 mg/dL (9-20); CARBON DIOXIDE 23 mmol/L (22-30); GFR AFRICAN-AMERICAN > 60; GLUCOSE,RANDOM 105 mg/dL (75-110)
[2016-07-30 13:40] LABS: CALCIUM 8.7 mg/dl (8.6-10.4)
[2016-07-30] MEDS: (Lantus) Insulin Glargine, Recombinant SC SCH (21:43)
[2016-07-30 23:11] VITALS: O2SAT 98
[2016-07-31] MEDS: (Novolin R) Insulin Human Regular 100 units/ml vial SC SCH ×2 (07:43→12:33)
[2016-07-31 08:29] VITALS: RESP 20; TEMP 97.5
[2016-07-31] MEDS: Enoxaparin 40 mg Syringe SC SCH (09:21)
[2016-07-31] MEDS: Lidocaine 5% Patch TD SCH (09:22)
[2016-07-31 09:29] VITALS: BP 133/49; PULSE 72
--- NOTE | 2016-07-31 11:43 | CP.PCM.PN ---
Subjective - Date & Time of Evaluation Date of Evaluation: 07/31/16 Time of Evaluation: 13:00 - Subjective Subjective: In bed no acute distress on physical therapy for subacute rehabilitation, awaiting appropriate disposition Objective - Vital Signs/Intake and Output Vital Signs (last 24 hours): Temp Pulse Resp BP Pulse Ox 97.5 F L 72 20 133/49 L 98 07/31/16 08:00 07/31/16 09:29 07/31/16 08:00 07/31/16 09:29 07/31/16 08:00 Intake and Output: 07/31/16 07/31/16 06:59 18:59 Intake Total 200 Output Total 450 Balance -250 - Medications Medications: Current Medications Acetaminophen (Tylenol 325mg Tab) 650 mg PO Q6 PRN PRN Reason: Fever >100.4 F Last Admin: 07/27/16 14:53 Dose: 650 mg Aspirin (Ecotrin) 81 mg PO DAILY [facility] Last Admin: 07/31/16 09:21 Dose: 81 mg Docusate Sodium (Colace) 100 mg PO BID [facility] Last Admin: 07/31/16 09:20 Dose: 100 mg Enoxaparin Sodium (Lovenox) 40 mg SC DAILY [facility] Last Admin: 07/31/16 09:21 Dose: 40 mg Glimepiride (Amaryl) 2 mg PO ACB [facility] Last Admin: 07/31/16 08:25 Dose: 2 mg Guaifenesin/Dextromethorphan (Robitussin Dm) 10 ml PO Q4H PRN PRN Reason: Cough and congestion Last Admin: 07/30/16 00:30 Dose: 10 ml Insulin Glargine (Lantus) 20 unit SC HS [facility] Last Admin: 07/30/16 21:43 Dose: 20 units Insulin Human Regular (Novolin R) 0 unit SC ACHS [facility] PRN Reason: Protocol Last Admin: 07/31/16 07:43 Dose: Not Given Lidocaine (Lidoderm) 1 ea TD DAILY [facility] Last Admin: 07/31/16 09:22 Dose: 1 ea Lisinopril (Zestril) 20 mg PO DAILY [facility] Last Admin: 07/31/16 09:21 Dose: 20 mg Metformin HCl (Glucophage) 1,000 mg PO BIDCC [facility] Last Admin: 07/31/16 08:25 Dose: 1,000 mg Metoprolol Tartrate (Lopressor) 25 mg PO BID [facility] Last Admin: 07/31/16 09:20 Dose: 25 mg Ondansetron HCl (Zofran Inj) 4 mg IVP Q6 PRN PRN Reason: Nausea/Vomiting Rosuvastatin Calcium (Crestor) 10 mg PO HS [facility] Last Admin: 07/30/16 21:43 Dose: 10 mg Sucralfate (Carafate Tab) 1 gm PO BID [facility] Last Admin: 07/31/16 09:20 Dose: 1 gm Tamsulosin HCl (Flomax) 0.4 mg PO DAILY [facility] Last Admin: 07/31/16 09:21 Dose: 0.4 mg - Labs Labs: 07/30/16 12:40 07/30/16 12:40 PT 14.1 SECONDS (9.7-12.2) H 07/21/16 16:25 INR 1.3 07/21/16 16:25 APTT 28 SECONDS (21-34) 07/21/16 16:25 - Constitutional Appears: Non-toxic - Head Exam Head Exam: ATRAUMATIC - Eye Exam Eye Exam: EOMI - ENT Exam ENT Exam: Mucous Membranes Moist - Neck Exam Neck Exam: absent: Lymphadenopathy, Thyromegaly - Respiratory Exam Respiratory Exam: Clear to Ausculation Bilateral. absent: Rales - Cardiovascular Exam Cardiovascular Exam: REGULAR RHYTHM, Murmur - GI/Abdominal Exam GI & Abdominal Exam: Soft, Normal Bowel Sounds. absent: Tenderness, Organomegaly - Rectal Exam Rectal Exam: Deferred - Extremities Exam Extremities Exam: Normal Capillary Refill. absent: Calf Tenderness - Neurological Exam Neurological Exam: Alert, Oriented x3 - Psychiatric Exam Psychiatric exam: Normal Mood - Skin Skin Exam: Dry Assessment and Plan (1) Diabetes Status: Chronic (2) Change in mental status Status: Acute (3) Dehydration Status: Acute (4) Near syncope Status: Acute (5) Physical debility Status: Chronic (6) CAD (coronary artery disease) Status: Chronic
--- NOTE | 2016-07-31 11:55 | CP.PCM.DIS ---
Provider - Provider Date of Admission: 07/23/16 14:18 Attending physician: Samuel Chu MD Time Spent in preparation of Discharge (in minutes): 20 Diagnosis - Discharge Diagnosis (1) Diabetes Status: Chronic (2) Change in mental status Status: Acute Priority: High (3) Dehydration Status: Acute (4) Near syncope Status: Acute (5) Physical debility Status: Chronic (6) CAD (coronary artery disease) Status: Chronic Hospital Course - Lab Results Lab Results: Most Recent Lab Values WBC 7.6 K/uL (4.8-10.8) 07/30/16 12:40 RBC 4.51 Mil/uL (4.40-5.90) 07/30/16 12:40 Hgb 11.8 g/dL (12.0-18.0) L 07/30/16 12:40 Hct 36.3 % (35.0-51.0) 07/30/16 12:40 MCV 80.7 fL (80.0-94.0) 07/30/16 12:40 MCH 26.1 pg (27.0-31.0) L 07/30/16 12:40 MCHC 32.4 g/dL (33.0-37.0) L 07/30/16 12:40 RDW 14.2 % (11.5-14.5) 07/30/16 12:40 Plt Count 184 K/uL (130-400) 07/30/16 12:40 MPV 9.9 fL (7.2-11.7) 07/30/16 12:40 Neut % (Auto) 60.1 % (50.0-75.0) 07/30/16 12:40 Lymph % (Auto) 28.8 % (20.0-40.0) 07/30/16 12:40 [place] % (Auto) 7.5 % (0.0-10.0) 07/30/16 12:40 Eos % (Auto) 3.1 % (0.0-4.0) 07/30/16 12:40 Baso % (Auto) 0.5 % (0.0-2.0) 07/30/16 12:40 Neut # 4.5 K/uL (1.8-7.0) 07/30/16 12:40 Lymph # 2.2 K/uL (1.0-4.3) 07/30/16 12:40 [place] # 0.6 K/uL (0.0-0.8) 07/30/16 12:40 Eos # 0.2 K/uL (0.0-0.7) 07/30/16 12:40 Baso # 0.0 K/uL (0.0-0.2) 07/30/16 12:40 PT 14.1 SECONDS (9.7-12.2) H 07/21/16 16:25 INR 1.3 07/21/16 16:25 APTT 28 SECONDS (21-34) 07/21/16 16:25 pO2 21 mm/Hg (30-55) L 07/21/16 16:55 VBG pH 7.32 (7.32-7.43) 07/21/16 16:55 VBG pCO2 56 mmHg (40-60) 07/21/16 16:55 VBG HCO3 24.3 mmol/L 07/21/16 16:55 VBG Total CO2 30.6 mmol/L (22-28) H 07/21/16 16:55 VBG O2 Sat (Calc) 37.4 % (40-65) L 07/21/16 16:55 VBG Base Excess 1.6 mmol/L (0.0-2.0) 07/21/16 16:55 VBG Potassium 4.6 mmol/L (3.6-5.2) 07/21/16 16:55 Sodium 130.0 mmol/l (132-148) L 07/21/16 16:55 Chloride 97.0 mmol/L (98-107) L 07/21/16 16:55 Glucose 443 mg/dl (75-110) H* 07/21/16 16:55 Lactate 1.4 mmol/L (0.7-2.1) 07/21/16 16:55 Crit Value Called To Shanae stuart 07/21/16 16:55 Crit Value Called By Jason chopra 07/21/16 16:55 Crit Value Read Back Y 07/21/16 16:55 Blood Gas Notified Time 1705 07/21/16 16:55 Sodium 137 mmol/L (132-148) 07/30/16 12:40 Potassium 4.2 mmol/L (3.6-5.2) 07/30/16 12:40 Chloride 102 mmol/L (98-107) 07/30/16 12:40 Carbon Dioxide 23 mmol/L (22-30) 07/30/16 12:40 Anion Gap 16 (10-20) 07/30/16 12:40 BUN 21 mg/dL (9-20) H 07/30/16 12:40 Creatinine 1.3 MG/DL (0.8-1.5) 07/30/16 12:40 Est GFR ( Amer) > 60 07/30/16 12:40 Est GFR (Non-Af Amer) 54 07/30/16 12:40 POC Glucose (mg/dL) 199 mg/dL (65-110) H 07/31/16 11:15 Random Glucose 105 mg/dL (75-110) 07/30/16 12:40 Hemoglobin A1c 9.6 % (4.2-6.5) H 07/23/16 11:22 Calcium 8.7 mg/dl (8.6-10.4) 07/30/16 12:40 Total Bilirubin 0.2 mg/dL (0.2-1.3) 07/23/16 11:22 AST 21 U/L (17-59) 07/23/16 11:22 ALT 54 U/L (21-72) 07/23/16 11:22 Alkaline Phosphatase 104 U/L (38-126) 07/23/16 11:22 Troponin I < 0.0120 ng/mL (0.00-0.120) 07/21/16 16:54 Total Protein 6.3 g/dL (6.3-8.3) 07/23/16 11:22 Albumin 3.5 g/dL (3.5-5.0) 07/23/16 11:22 Globulin 2.8 gm/dL (2.2-3.9) 07/23/16 11:22 Albumin/Globulin Ratio 1.3 (1.0-2.1) 07/23/16 11:22 Triglycerides 131 mg/dL (0-149) 07/23/16 11:22 Cholesterol 124 mg/dL (0-199) 07/23/16 11:22 LDL Cholesterol Direct 69 mg/dL (0-129) 07/23/16 11:22 HDL Cholesterol 30 mg/dL (30-70) 07/23/16 11:22 Venous Blood Potassium 4.6 mmol/L (3.6-5.2) 07/21/16 16:55 Urine Color Yellow (YELLOW) 07/21/16 19:14 Urine Clarity Clear (Clear) 07/21/16 19:14 Urine pH 5.0 (5.0-8.0) 07/21/16 19:14 Ur Specific [place] 1.027 (1.003-1.030) 07/21/16 19:14 Urine Protein 2+ mg/dL (NEGATIVE) H 07/21/16 19:14 Urine Glucose (UA) 3+ mg/dL (Normal) H 07/21/16 19:14 Urine Ketones Negative mg/dL (NEGATIVE) 07/21/16 19:14 Urine Blood Trace (NEGATIVE) H 07/21/16 19:14 Urine Nitrate Negative (NEGATIVE) 07/21/16 19:14 Urine Bilirubin Negative (NEGATIVE) 07/21/16 19:14 Urine Urobilinogen Normal mg/dL (0.2-1.0) 07/21/16 19:14 Ur Leukocyte Esterase Neg Keven/uL (Negative) 07/21/16 19:14 Urine WBC (Auto) < 1 /hpf (0-5) 07/21/16 19:14 Urine RBC (Auto) < 1 /hpf (0-3) 07/21/16 19:14 Ur Squamous Epith Cells < 1 /hpf (0-5) 07/21/16 19:14 Serum Ketones Negative (NEGATIVE) 07/21/16 16:54 - Hospital Course Hospital Course: 71 years old with history of diabetes, coronary artery disease, status post coronary artery bypass surgery2 had cardiac cath recently with no occlusive disease and recent echocardiogram with no ischemia, normal left ventricular contractility, he has recurrent admission with dehydration and uncontrolled diabetes. Recently was admitted to [facility] treated and was sent to rehabilitation, however, on the one week after discharged home with apparent poor follow-up and compliance at home in addition to some family issues the patient was readmitted with dehydration and near syncope, was hydrated and now for rehabilitation again Discharge Exam - Head Exam Head Exam: ATRAUMATIC - Eye Exam Eye Exam: EOMI - ENT Exam ENT Exam: Mucous Membranes Moist - Neck Exam Neck exam: Full Rom - Respiratory Exam Respiratory Exam: Clear to PA & Lateral. absent: Rales - Cardiovascular Exam Cardiovascular Exam: REGULAR RHYTHM, Systolic Murmur - GI/Abdominal Exam GI & Abdominal Exam: Normal Bowel Sounds, Soft. absent: Tenderness - Rectal Exam Rectal Exam: Deferred - Extremities Exam Extremities exam: normal capillary refill - Neurological Exam Neurological exam: Alert, Oriented x3 - Psychiatric Exam Psychiatric exam: Normal Mood - Skin Skin Exam: Dry Discharge Plan - Follow Up Plan Condition: GOOD Disposition: HOME/ ROUTINE Instructions: Diabetes Mellitus Type 2 in Adults (ED) Additional Instructions: continue to observe a diabetic diet and to take your diabetes meds as prescribed. Follow-up w Dr. Chu on Saturday as needed. Referrals: Samuel Chu MD [Staff Provider] -
== END 2016-07-31 14:25 | DRG 641 ==
LOC: C.ER 15:59 → C.9E 22:13 → C.3T 22:49 → OBSVTOIN 07-23 14:18 → C.3T 07-25 14:50
PROVIDERS: ADMIT Internal Medicine Cardiovascular Disease; ATTEND Internal Medicine Cardiovascular Disease
DX: E86.0 Dehydration (principal); E11.65 Type 2 diabetes mellitus with hyperglycemia; R41.82 Altered mental status, unspecified; R55 Syncope and collapse; I25.10 Atherosclerotic heart disease of native coronary artery without angina pectoris; I10 Essential (primary) hypertension; F03.90 Unspecified dementia, unspecified severity, without behavioral disturbance, psychotic disturbance, mood disturbance, and anxiety; E78.00 Pure hypercholesterolemia, unspecified; Z95.1 Presence of aortocoronary bypass graft; Z91.14 Patient's other noncompliance with medication regimen; Z95.5 Presence of coronary angioplasty implant and graft; Z86.73 Personal history of transient ischemic attack (TIA), and cerebral infarction without residual deficits; Z79.4 Long term (current) use of insulin

== ENCOUNTER 2017-04-16 21:35 | Emergency (ER) | payer MEDICARE, OTHER ==
[2017-04-16 21:45] VITALS: RESP 18
--- NOTE | 2017-04-16 22:00 | C.PDOC ---
History Of Present Illness The patient presents to the ED via ambulance after being sent from detention for evaluation of a possible fall. As per detention, patient sustained an unwitnessed fall from his wheelchair at around 20:00 today. Patient has confused baseline mental status and does not recall the event. He denies any pain and has no other complaints at this time. - HPI Time Seen by Provider: 04/16/17 22:00 Chief Complaint (Nursing): Trauma History Per: Patient, EMS History/Exam Limitations: other (baseline confused mental status ) Onset/Duration Of Symptoms: Hrs Injury Occurred (Timing): Just Before Arrival Severity: None Pain Scale Rating Of: 0 Recent travel outside of the [place]: No Additional History Per: Patient, EMS, Penitentiary - Fall Fall:Prior To Injury: Other (unwitnessed fall from wheelchair) Past Medical History Reviewed: Historical Data, Nursing Documentation, Vital Signs Vital Signs: Last Vital Signs Temp 98 F 04/16/17 23:39 Pulse 88 04/16/17 23:39 Resp 18 04/16/17 23:39 BP 160/90 H 04/16/17 23:39 Pulse Ox 99 04/17/17 00:37 - Medical History PMH: CVA, Dementia, Depression (SINGLE EPISODE), Diabetes (type 2), HTN, Hypercholesterolemia, Sexually Transmitted Disease Denies: Arthritis, COPD, Chronic Kidney Disease, Rheumatoid Arthritis Surgical History: CABG, Coronary Stent (x2) - [facility] Procedures HOME MANAGEMENT TREATMENT USING ASSIST EQUIPMENT (10/05/15) THERAPEUTIC EXERCISE TREATMENT OF MUSCULOSK LOW BACK/LE (10/05/15) Family History: States: Unknown Family Hx - Social History Hx Tobacco Use: No Hx Alcohol Use: No Hx Substance Use: No - Immunization History Hx Tetanus Toxoid Vaccination: No Hx Influenza Vaccination: Yes (01/01/2017) Hx Pneumococcal Vaccination: Yes (03/31/2015) Review Of Systems Constitutional: Negative for: Fever, Chills Cardiovascular: Negative for: Chest Pain Respiratory: Negative for: Shortness of Breath Gastrointestinal: Negative for: Abdominal Pain Musculoskeletal: Negative for: Back Pain Skin: Negative for: Rash Neurological: Negative for: Weakness, Numbness, Headache, Dizziness Psych: Negative for: Anxiety Physical Exam - Physical Exam Appears: Non-toxic, No Acute Distress Skin: Warm, Dry, No Other (hematoma or crepitus ) Head: Atraumatic, Normacephalic, No Tenderness, Swelling (mild scalp) Oral Mucosa: Moist Neck: Trachea Midline, No Midline Cervical Tenderness, Supple Chest: Symmetrical, No Deformity, No Tenderness Cardiovascular: Rhythm Regular, No Murmur Respiratory: No Accessory Muscle Use Gastrointestinal/Abdominal: Soft, No Tenderness Back: No CVA Tenderness Extremity: Normal ROM, Capillary Refill (less than 2 seconds ) Pulses: Left Dorsalis Pedis: Normal, Right Dorsalis Pedis: Normal Neurological/Psych: Other (alert and oriented x 2) Gait: Unable To Assess ED Course And Treatment O2 Sat by Pulse Oximetry: 99 (on RA) Pulse Ox Interpretation: Normal Progress Note: CT Head and CT Cervical Spine ordered. Reevaluation Time: 01:03 Reassessment Condition: Improved Disposition Counseled Patient/Family Regarding: Studies Performed, Diagnosis, Need For Followup - Disposition Referrals: Angus Dejesus MD [Staff Provider] - Disposition: HOME/ ROUTINE Disposition Time: 22:00 Condition: FAIR Instructions: Contusion in Adults (DC) Forms: [employer] [facility] (Citizen Of [place]) - Clinical Impression Clinical Impression: Contusion of head, Fall - Scribe Statement The provider has reviewed the documentation as recorded by the Scribe (Sandi Stiles) Provider Attestation: All medical record entries made by the Scribe were at my direction and personally dictated by me. I have reviewed the chart and agree that the record accurately reflects my personal performance of the history, physical exam, medical decision making, and the department course for this patient. I have also personally directed, reviewed, and agree with the discharge instructions and disposition.
[2017-04-16 23:40] VITALS: TEMP 98
--- NOTE | 2017-04-17 00:08 | CT ---
EXAM: CT Head Without Intravenous Contrast CLINICAL HISTORY: 72 years old, male; Pain; Headache and other: Fall; Patient HX: 05-22-16 TECHNIQUE: Axial computed tomography images of the head/brain without intravenous contrast. All CT scans at this facility use one or more dose reduction techniques, viz.: automated exposure control; ma/kV adjustment per patient size (including targeted exams where dose is matched to indication; i.e. head); or iterative reconstruction technique. COMPARISON: CT - HEAD W/O CONTRAST 2015-03-26 18:10 FINDINGS: Brain: Moderate atrophy. No intracranial hemorrhage. No mass. Multiple scattered foci of decreased attenuation within periventricular/subcortical white matter. No edema. Ventricles: No hydrocephalus. Cavum septum pellucidum and vergae. Bones/joints: No acute fracture. Soft tissues: Mild scalp swelling. Vasculature: Atherosclerotic disease of intracranial arteries. Sinuses: Scattered minimal to mild mucosal thickening. Mastoid air cells: No mastoid effusion. Orbits: Unremarkable as visualized. Dental: Dental caries. IMPRESSION: 1. No intracranial hemorrhage. 2. Nonspecific white matter changes. 3. Incidental/non-acute findings are described above.
--- NOTE | 2017-04-17 00:12 | CT ---
EXAM: CT Cervical Spine Without Intravenous Contrast CLINICAL HISTORY: 72 years old, male; Pain; Neck pain; Additional info: Fall TECHNIQUE: Axial computed tomography images of the cervical spine without intravenous contrast. All CT scans at this facility use one or more dose reduction techniques, viz.: automated exposure control; ma/kV adjustment per patient size (including targeted exams where dose is matched to indication; i.e. head); or iterative reconstruction technique. Coronal and sagittal reformatted images were created and reviewed. COMPARISON: No relevant prior studies available. FINDINGS: Vertebrae: No acute fracture. Facet osteoarthrosis. Discs/spinal canal/neural foramina: Mild spondylosis. Mild disc herniations within mid and lower cervical spine, suboptimally evaluated. Mild indentation thecal sac mid and lower cervical spine. Other bones/joints: Median sternotomy. Soft tissues: Unremarkable. Vasculature: Atherosclerotic disease of visualized arteries. Lung apices: Unremarkable as visualized. IMPRESSION: 1. No fracture. 2. Incidental/non-acute findings are described above.
[2017-04-17 04:21] VITALS: BP 150/85; PULSE 80; O2SAT 98
== END 2017-04-17 04:24 | disposition home or self-care (01) ==
LOC: C.ER 21:35
DX: S00.93XA Contusion of unspecified part of head, initial encounter (principal); W05.0XXA Fall from non-moving wheelchair, initial encounter; Y92.129 Unspecified place in nursing home as the place of occurrence of the external cause; I10 Essential (primary) hypertension; E78.00 Pure hypercholesterolemia, unspecified; E11.9 Type 2 diabetes mellitus without complications; F03.90 Unspecified dementia, unspecified severity, without behavioral disturbance, psychotic disturbance, mood disturbance, and anxiety; Z86.73 Personal history of transient ischemic attack (TIA), and cerebral infarction without residual deficits

== ENCOUNTER 2017-05-03 20:03 | Emergency (ER) | payer MEDICARE, OTHER ==
[2017-05-03 20:16] VITALS: BP 163/81; PULSE 86; RESP 16; TEMP 99.5; O2SAT 97
--- NOTE | 2017-05-03 21:12 | C.PDOC ---
Chief Complaint (Nursing): Upper Extremity Problem/Injury Past Medical History Vital Signs: Last Vital Signs Temp 99.5 F 05/03/17 20:12 Pulse 86 05/03/17 20:12 Resp 16 05/03/17 20:12 BP 163/81 H 05/03/17 20:12 Pulse Ox 97 05/03/17 20:12 - Medical History PMH: CVA, Dementia, Depression (SINGLE EPISODE), Diabetes (type 2), HTN, Hypercholesterolemia, Sexually Transmitted Disease Denies: Arthritis, COPD, Chronic Kidney Disease, Rheumatoid Arthritis Surgical History: CABG, Coronary Stent (x2) - [facility] Procedures HOME MANAGEMENT TREATMENT USING ASSIST EQUIPMENT (10/05/15) THERAPEUTIC EXERCISE TREATMENT OF MUSCULOSK LOW BACK/LE (10/05/15) Family History: States: Unknown Family Hx - Social History Hx Tobacco Use: No Hx Alcohol Use: No Hx Substance Use: No - Immunization History Hx Tetanus Toxoid Vaccination: No Hx Influenza Vaccination: Yes (01/01/2017) Hx Pneumococcal Vaccination: Yes (03/31/2015) ED Course And Treatment O2 Sat by Pulse Oximetry: 97 Disposition - Disposition
--- NOTE | 2017-05-03 21:17 | C.PDOC ---
History Of Present Illness 72 y/o male, from group home, presents to the ER after tripped and fell sustaining a fracture to the right humerus yesterday. Patient states that he also hit his head and right arm as well. Patient deneis any SOB, chest pain,and other complaints. Patient has a history recurrent falls, HTN, diabetes, and hyperlipidemia. Of note, patient is not able to give complete history. Chief Complaint (Nursing): Upper Extremity Problem/Injury History Per: Patient History/Exam Limitations: clinical condition Current Symptoms Are (Timing): Still Present Severity: Moderate Past Medical History Vital Signs: Last Vital Signs Temp 99.5 F 05/03/17 20:12 Pulse 86 05/03/17 20:12 Resp 16 05/03/17 20:12 BP 163/81 H 05/03/17 20:12 Pulse Ox 97 05/03/17 21:52 - Medical History PMH: CVA, Dementia, Depression (SINGLE EPISODE), Diabetes (type 2), HTN, Hypercholesterolemia, Sexually Transmitted Disease Denies: Arthritis, COPD, Chronic Kidney Disease, Rheumatoid Arthritis Surgical History: CABG, Coronary Stent (x2) - [facility] Procedures HOME MANAGEMENT TREATMENT USING ASSIST EQUIPMENT (10/05/15) THERAPEUTIC EXERCISE TREATMENT OF MUSCULOSK LOW BACK/LE (10/05/15) Family History: States: No Known Family Hx - Social History Hx Tobacco Use: No Hx Alcohol Use: No Hx Substance Use: No - Immunization History Hx Tetanus Toxoid Vaccination: No Hx Influenza Vaccination: Yes (01/01/2017) Hx Pneumococcal Vaccination: Yes (03/31/2015) Review Of Systems Except As Marked, All Systems Reviewed And Found Negative. Musculoskeletal: Positive for: Arm Pain (right arm pain) Physical Exam - Physical Exam Appears: Non-toxic, No Acute Distress Skin: Normal Color, Warm Head: Atraumatic, Normacephalic Eye(s): bilateral: Normal Inspection Nose: Normal Oral Mucosa: Moist Neck: Supple Chest: Symmetrical Cardiovascular: Rhythm Regular Respiratory: Normal Breath Sounds, No Accessory Muscle Use, No Rales, No Rhonchi , No Wheezing Gastrointestinal/Abdominal: Normal Exam, Soft, No Tenderness Extremity: No Normal ROM (limited ROM in right arm), No Deformity Pulses: Right Radial: Normal Neurological/Psych: Oriented x3, Normal Speech, Normal Motor, Normal Sensation ED Course And Treatment O2 Sat by Pulse Oximetry: 97 (RA) Pulse Ox Interpretation: Normal Medical Decision Making Medical Decision Making: Plan: -- X-Ray- Right Humerus reveals comminuted R humeral head fx nondisplaced Patient has a comminuted right humeral head fracture nondisplaced, will manage with shoulder immobilizer and referral to follow up with ortho. Disposition - Disposition Referrals: Jae Fam III, MD [Staff Provider] - Disposition: HOME/ ROUTINE Disposition Time: 21:50 Condition: GOOD Additional Instructions: maintain immobilizer until seen by ortho Forms: [employer] ([place]) - Clinical Impression Clinical Impression: Humerus head fracture - Scribe Statement The provider has reviewed the documentation as recorded by the Denishaibe Casey Jimenez Provider Attestation: All medical record entries made by the Scribe were at my direction and personally dictated by me. I have reviewed the chart and agree that the record accurately reflects my personal performance of the history, physical exam, medical decision making, and the department course for this patient. I have also personally directed, reviewed, and agree with the discharge instructions and disposition.
--- NOTE | 2017-05-04 10:53 | RAD ---
PROCEDURE: Radiographs of the right humerus. HISTORY: trauma COMPARISON: Comparison chest made with radiographs of the right humerus 05/22/2016 FINDINGS: BONES: Current study reveals a comminuted appearing fracture of the right humeral head/neck. No evidence of dislocation. Suspect surrounding soft tissue swelling. Degenerative osteoarthritis right shoulder girdle. . SOFT TISSUES: As above. OTHER FINDINGS: None. IMPRESSION: Comminuted fracture of the right humeral head/neck. Note that this report was placed in PA review folder for followup.
== END 2017-05-04 00:41 ==
LOC: C.ER 20:03
DX: S42.294D Other nondisplaced fracture of upper end of right humerus, subsequent encounter for fracture with routine healing (principal); W01.0XXD Fall on same level from slipping, tripping and stumbling without subsequent striking against object, subsequent encounter; Z91.81 History of falling

== ENCOUNTER 2018-01-26 21:55 | Inpatient (IN) | payer MEDICARE, OTHER ==
--- NOTE | 2018-01-26 21:59 | C.PDOC ---
History Of Present Illness sent from dc for fever, cough , chest congestion. Time Seen by Provider: 01/26/18 21:59 History Per: Other (nh) History/Exam Limitations: clinical condition Onset/Duration Of Symptoms: Days Current Symptoms Are (Timing): Still Present Severity: Moderate Pain Scale Rating Of: 4 Reports Recently: Seen In ED, Treated By A Physician, Hospitalized Recent travel outside of the [place]: No Additional History Per: Penitentiary Past Medical History Reviewed: Historical Data, Nursing Documentation, Vital Signs - Medical History PMH: CVA, Dementia, Depression (SINGLE EPISODE), Diabetes (type 2), HTN, Hypercholesterolemia, Sexually Transmitted Disease Denies: Arthritis, COPD, Chronic Kidney Disease, Rheumatoid Arthritis Surgical History: CABG, Coronary Stent (x2) - [facility] Procedures HOME MANAGEMENT TREATMENT USING ASSIST EQUIPMENT (10/05/15) THERAPEUTIC EXERCISE TREATMENT OF MUSCULOSK LOW BACK/LE (10/05/15) Family History: States: No Known Family Hx - Social History Hx Tobacco Use: No Hx Alcohol Use: No Hx Substance Use: No - Immunization History Hx Tetanus Toxoid Vaccination: No Hx Influenza Vaccination: Yes (01/01/2017) Hx Pneumococcal Vaccination: Yes (03/31/2015) Review Of Systems Review Of Systems: ROS cannot be obtained secondary to pt's inabilty to answer questions. Physical Exam - Physical Exam Appears: Non-toxic Skin: Warm, Dry Head: Normacephalic Eye(s): bilateral: Normal Inspection Oral Mucosa: Dry Neck: Supple Chest: Symmetrical, Other (cabg) Cardiovascular: Rhythm Regular Respiratory: Decreased Breath Sounds, No Rales, Rhonchi, No Wheezing Gastrointestinal/Abdominal: Soft, No Tenderness, No Distention, No Guarding, No Rebound Back: No CVA Tenderness Extremity: No Tenderness, Pedal Edema (trace) Extremity: Bilateral: Atraumatic Pulses: Left Dorsalis Pedis: Normal, Right Dorsalis Pedis: Normal Neurological/Psych: Slow To Respond With Command Gait: Unable To Assess ED Course And Treatment - Laboratory Results Result Diagrams: 01/26/18 22:40 01/26/18 22:40 ECG: Interpreted By Me, Viewed By Me ECG Rhythm: Sinus Rhythm (106), 1st Degree HB, Nonspecific Changes O2 Sat by Pulse Oximetry: 95 Pulse Ox Interpretation: Normal - Radiology CXR: Interpreted by Me, Viewed By Me CXR Interpretation: Yes: Infiltrates (rll), Cardiomegaly, Other (cabg). No: Fracture Disposition Discussed With Dr.: Nasir Puentes Comment: accepted the pt onhis service and took over the care at 11:23 PM Counseled Patient/Family Regarding: Studies Performed, Diagnosis - Disposition Referrals: Angus Dejesus MD [Primary Care Provider] - Disposition: HOSPITALIZED Disposition Time: 21:59 Condition: GUARDED - Clinical Impression Clinical Impression: Pneumonia, Pedal edema, Renal insufficiency, Sepsis Decision To Admit - Pt Status Changed To: Hospital Disposition Of: Inpatient - Admit Certification Admit to Inpatient:: After my assessment, the patient will require hospitalization for at least two midnights. This is because of the severity of symptoms shown, intensity of services needed, and/or the medical risk in this patient being treated as an outpatient. - InPatient: Physician Admission Certification: I certify that this patient requires 2 or more midnights of care for the following reason:: After my assessment, the patient will require hospitalization for at least two midnights. This is because of the severity of symptoms shown, intensity of services needed, and/or the medical risk in this patient being treated as an outpatient. - . Bed Request Type: Telemetry Admitting Physician: Nasir Puentes Patient Diagnosis: Renal insufficiency, Dehydration, Pneumonia, Fever
[2018-01-26] MEDS ORDERED: Sodium Chloride 0.9% 1,000 ML IV ONE (22:19)
[2018-01-26] MEDS ORDERED: Piperacillin/Tazobact 3.375 GM in Sodium Chloride 100 ML IVPB STA (22:19)
[2018-01-26] MEDS: Albuterol-Ipratrop 3 mg / 0.5 (3 ml) UD IH SCH ×3 (22:30→22:40)
[2018-01-26] MEDS ORDERED: Albuterol-Ipratrop 3 mg / 0.5 (3 ml) UD ONE (22:37)
[2018-01-26] MEDS ORDERED: Vancomycin 1 GM in Sodium Chloride 0.9% 200 ML IVPB STA (22:42)
[2018-01-26 22:43] LABS: BASO # 0.1 K/uL (0.0-0.2); BASO % 0.4 % (0.0-2.0); EOS % 0.1 % (0.0-4.0); HEMOGLOBIN 12.8 g/dL (12.0-18.0); LYMPH # 1.2 K/uL (1.0-4.3); LYMPH % 9.4 % (20.0-40.0); MEAN CELL VOLUME 79.3 fL (80.0-94.0); MEAN CORPUSCULAR HEMOGLOBIN 25.7 pg (27.0-31.0); MEAN CORPUSCULAR HGB CONC 32.4 g/dL (33.0-37.0); MEAN PLATELET VOLUME 9.3 fL (7.2-11.7); MONO # 1.4 K/uL (0.0-0.8); MONO % 10.7 % (0.0-10.0); NEUT # 10.3 K/uL (1.8-7.0); NEUT % 79.4 % (50.0-75.0); PLATELET COUNT 175 K/uL (130-400); RBC 4.99 Mil/uL (4.40-5.90)
[2018-01-26 22:43] LABS: ABG ALLEN TEST POS; ARTERIAL BLOOD GAS HCO3 21.5 mmol/L (21-28); ARTERIAL BLOOD GAS PCO2 31 mm/Hg (35-45); ARTERIAL BLOOD GAS PO2 135 mm/Hg (80-100); ARTERIAL BLOOD GAS TCO2 20.2 mmol/L (22-28)
[2018-01-26] MEDS ORDERED: Sodium Chloride 0.9% 1,000 ML IV SCH (22:46)
[2018-01-26] MEDS ORDERED: Sodium Chloride 0.9% 1,000 ML ONE (22:47)
[2018-01-26 22:48] LABS: LYMPHOCYTE 13 % (20-40); MONOCYTE 6 % (0-10); NEUTROPHIL 81 % (50-75); PLATELET ESTIMATE NORMAL (NORMAL); TOTAL CELLS COUNTED 100
[2018-01-26 22:51] LABS: INR 1.6; PROTHROMBIN TIME 17.4 SECONDS (9.7-12.2)
[2018-01-26 22:57] LABS: ALB/GLOB RATIO 1.5 (1.0-2.1); ALBUMIN 4.4 g/dL (3.5-5.0); CALCIUM 9.3 mg/dl (8.6-10.4)
[2018-01-26 23:08] LABS: TROPONIN I 0.02 ng/mL (0.00-0.120)
[2018-01-26] MEDS ORDERED: Piperacillin/Tazobact 3.375 gm 100 ML IVPB ONE (23:36)
[2018-01-26] MEDS ORDERED: guaiFENesin DM 200 mg-20 mg/10 ml UD PO PRN (23:53)
[2018-01-26] MEDS ORDERED: Alum-Mag Hydrox-Simethicone Susp (30 mL) PO PRN (23:53)
[2018-01-27 02:01] LABS: VENOUS BLOOD GAS BASE EXCESS -9.9 mmol/L (0.0-2.0); VENOUS BLOOD GAS PCO2 41 mmHg (40-60); VENOUS BLOOD GAS PO2 28 mm/Hg (30-55); VENOUS BLOOD PH 7.23 (7.32-7.43)
[2018-01-27] MEDS ORDERED: Influenza Vaccine 60 MCG/0.5 ML SYR (3 yr & up) IM ONE (03:57)
[2018-01-27] MEDS: (Novolin R) Insulin Human Regular 100 units/ml vial SC SCH ×4 (08:35→22:10)
--- NOTE | 2018-01-27 08:44 | RAD ---
Date of service: 01/26/2018 PROCEDURE: CHEST RADIOGRAPH, 1 VIEW HISTORY: SOB COMPARISON: 07/21/2016. FINDINGS: LUNGS: The lungs are well inflated and clear. PLEURA: No pneumothorax or pleural effusion. CARDIOVASCULAR: The heart is normal in size. Status post CABG. No aortic atherosclerotic calcifications present. OSSEOUS STRUCTURES: Within normal limits for the patient's age. VISUALIZED UPPER ABDOMEN: Normal. OTHER FINDINGS: None. IMPRESSION: No acute findings.
[2018-01-27] MEDS: Azithromycin 500 MG in Sodium Chloride 0.9% 250 ML IVPB SCH (09:30)
[2018-01-27] MEDS: Magnesium Hydroxide Susp 30 ml UD PO SCH ×3 (09:31→18:00)
[2018-01-27] MEDS ORDERED: METFORMIN HCL 1000 MG PO SCH (10:00)
[2018-01-27 10:25] LABS: BASO % 0.3 % (0.0-2.0); HEMOGLOBIN 11.7 g/dL (12.0-18.0); LYMPH # 0.8 K/uL (1.0-4.3); MEAN CELL VOLUME 79.1 fL (80.0-94.0); MEAN CORPUSCULAR HEMOGLOBIN 25.8 pg (27.0-31.0); MEAN CORPUSCULAR HGB CONC 32.6 g/dL (33.0-37.0); MONO # 0.9 K/uL (0.0-0.8); MONO % 7.6 % (0.0-10.0); NEUT # 10.2 K/uL (1.8-7.0); NEUT % 85.1 % (50.0-75.0); PLATELET COUNT 164 K/uL (130-400); RBC 4.52 Mil/uL (4.40-5.90); RED CELL DISTRIBUTION WIDTH 14.3 % (11.5-14.5); WHITE BLOOD COUNT 11.9 K/uL (4.8-10.8)
[2018-01-27 10:45] LABS: CALCIUM 8.9 mg/dl (8.6-10.4)
[2018-01-27 11:12] LABS: BANDS 6 % (0-2); LYMPHOCYTE 10 % (20-40); MONOCYTE 7 % (0-10); NEUTROPHIL 77 % (50-75); PLATELET ESTIMATE NORMAL (NORMAL); TOTAL CELLS COUNTED 100
[2018-01-27] MEDS ORDERED: guaiFENesin DM 100 mg-10 mg/5 ml UD PO PRN (11:15)
--- NOTE | 2018-01-27 12:28 | CP.PCM.CON ---
History of Present Illness - History of Present Illness History of Present Illness: admitted fever cough and SOB from NH rx for sepsis in progress - cont rx for HAP PMH: CVA, Dementia, Depression (SINGLE EPISODE), Diabetes (type 2), HTN, Hypercholesterolemia, Sexually Transmitted Disease Denies: Arthritis, COPD, Chronic Kidney Disease, Rheumatoid Arthritis Surgical History: CABG, Coronary Stent (x2) Past Patient History - Infectious Disease Hx of Infectious Diseases: None - Past Medical History & Family History Past Medical History?: Yes - Past Social History Smoking Status: Never Smoked - CARDIAC Hx Hypercholesterolemia: Yes Hx Hypertension: Yes - PULMONARY Hx Chronic Obstructive Pulmonary Disease (COPD): No - NEUROLOGICAL Hx Dementia: Yes - HEENT Hx HEENT Problems: No - RENAL Hx Chronic Kidney Disease: No - ENDOCRINE/METABOLIC Hx Diabetes Mellitus Type 2: Yes - HEMATOLOGICAL/ONCOLOGICAL Hx Blood Disorders: No - INTEGUMENTARY Hx Dermatological Problems: No - MUSCULOSKELETAL/RHEUMATOLOGICAL Hx Arthritis: No Hx Falls: No Hx Rheumatoid Arthritis: No - GASTROINTESTINAL Hx Gastrointestinal Disorders: No - GENITOURINARY/GYNECOLOGICAL Hx Sexually Transmitted Disorders: Yes - PSYCHIATRIC Hx Depression: Yes (SINGLE EPISODE) Hx Substance Use: No - SURGICAL HISTORY Hx Coronary Artery Bypass Graft: Yes Hx Coronary Stent: Yes (x2) - ANESTHESIA Hx Anesthesia: Yes Hx Anesthesia Reactions: No Hx Malignant Hyperthermia: No Meds Allergies/Adverse Reactions: Allergies Allergy/AdvReac Type Severity Reaction Status Date / Time No Known Allergies Allergy Verified 01/26/18 22:04 - Medications Medications: Current Medications Acetaminophen (Tylenol 325mg Tab) 325 mg PO Q4 PRN PRN Reason: Pain, Mild (1-3) Al Hydrox/Mg Hydrox/Simethicone (Maalox Plus 30 Ml) 30 ml PO Q4 PRN PRN Reason: GI distress Glimepiride (Amaryl) 2 mg PO DAILY [facility] Last Admin: 01/27/18 09:31 Dose: 2 mg Guaifenesin/Dextromethorphan (Robitussin Dm) 5 ml PO Q6 PRN PRN Reason: Cough Heparin Sodium (Porcine) (Heparin) 5,000 units SC Q8 [facility] Last Admin: 01/27/18 06:55 Dose: 5,000 units Home Med (Metformin Hcl [Glucophage]) 1,000 mg PO BID [facility] Ceftriaxone Sodium 1 gm/ (Sodium Chloride) 100 mls @ 100 mls/hr IVPB DAILY [facility]; Protocol Last Admin: 01/27/18 11:47 Dose: 100 mls/hr Azithromycin 500 mg/ Sodium (Chloride) 250 mls @ 250 mls/hr IVPB DAILY [facility]; Protocol Last Admin: 01/27/18 09:30 Dose: 250 mls/hr Sodium Chloride (Sodium Chloride 0.9%) 1,000 mls @ 60 mls/hr IV .[id number] [facility] Meropenem 500 mg/ Sodium (Chloride) 100 mls @ 100 mls/hr IVPB Q8H [facility]; Protocol Vancomycin HCl 1 gm/ Sodium (Chloride) 250 mls @ 166.7 mls/hr IVPB Q24H [facility]; Protocol Influenza Virus Vaccine (Fluzone Quad [id number]) 60 mcg IM .ONCE ONE Stop: 01/28/18 10:01 Insulin Glargine (Lantus) 20 unit SC HS [facility] Insulin Human Regular (Novolin R) 0 unit SC ACHS [facility]; Protocol Last Admin: 01/27/18 08:35 Dose: 2 unit Magnesium Hydroxide (Milk Of Magnesia) 30 ml PO TID [facility] Last Admin: 01/27/18 09:31 Dose: 30 ml Metoprolol Tartrate (Lopressor) 25 mg PO BID [facility] Last Admin: 01/27/18 09:31 Dose: 25 mg Rosuvastatin Calcium (Crestor) 10 mg PO HS [facility] Results - Vital Signs Recent Vital Signs: Last Vital Signs Temp 99.8 F H 01/27/18 08:26 Pulse 115 H 01/27/18 08:26 Resp 20 01/27/18 08:26 BP 120/73 01/27/18 09:31 Pulse Ox 100 01/27/18 08:26 - Labs Result Diagrams: 01/27/18 10:21 01/27/18 10:21 Labs: Laboratory Results - last 24 hr 01/26/18 01/26/18 01/26/18 01:40 22:09 22:30 WBC RBC Hgb Hct MCV MCH MCHC RDW Plt Count MPV Neut % (Auto) Lymph % (Auto) Gibson % (Auto) Eos % (Auto) Baso % (Auto) Neut # (Auto) Lymph # (Auto) Gibson # (Auto) Eos # (Auto) Baso # (Auto) Neutrophils % (Manual) Band Neutrophils % Lymphocytes % (Manual) Monocytes % (Manual) Platelet Estimate RBC Morphology PT INR APTT Puncture Site pCO2 pO2 28 L HCO3 ABG pH ABG Total CO2 ABG O2 Saturation ABG Base Excess Carl Test ABG Potassium VBG pH 7.23 L VBG pCO2 41 VBG HCO3 15.6 VBG Total CO2 18.5 L VBG O2 Sat (Calc) 55.6 VBG Base Excess -9.9 L VBG Potassium 4.6 A-a O2 Difference Respiratory Index Sodium 142.0 Chloride 106.0 Glucose 213 H Lactate 8.0 H* FiO2 Crit Value Called To Marcy rn Crit Value Called By Cody rt Crit Value Read Back Y Blood Gas Notified Time 200 Potassium Carbon Dioxide Anion Gap BUN Creatinine Est GFR ( Amer) Est GFR (Non-Af Amer) POC Glucose (mg/dL) 136 H Random Glucose Calcium Magnesium Total Bilirubin AST ALT Alkaline Phosphatase Troponin I NT-Pro-B Natriuret Pep Total Protein Albumin Globulin Albumin/Globulin Ratio TSH 3rd Generation Arterial Blood Potassium Venous Blood Potassium 4.6 Influenza Typ A,B (EIA) Negative for flu a/b 01/26/18 01/26/18 01/26/18 22:35 22:40 22:40 WBC 13.0 H D RBC 4.99 Hgb 12.8 Hct 39.6 MCV 79.3 L MCH 25.7 L MCHC 32.4 L RDW 14.0 Plt Count 175 MPV 9.3 Neut % (Auto) 79.4 H Lymph % (Auto) 9.4 L Gibson % (Auto) 10.7 H Eos % (Auto) 0.1 Baso % (Auto) 0.4 Neut # (Auto) 10.3 H Lymph # (Auto) 1.2 Gibson # (Auto) 1.4 H Eos # (Auto) 0.0 Baso # (Auto) 0.1 Neutrophils % (Manual) 81 H Band Neutrophils % Lymphocytes % (Manual) 13 L Monocytes % (Manual) 6 Platelet Estimate Normal RBC Morphology PT 17.4 H INR 1.6 APTT 32 Puncture Site Rra pCO2 31 L pO2 135 H HCO3 21.5 ABG pH 7.40 ABG Total CO2 20.2 L ABG O2 Saturation 99.0 H ABG Base Excess -4.5 L Carl Test Pos ABG Potassium 4.3 VBG pH VBG pCO2 VBG HCO3 VBG Total CO2 VBG O2 Sat (Calc) VBG Base Excess VBG Potassium A-a O2 Difference 54.0 Respiratory Index 0.4 Sodium 138.0 Chloride 109.0 H Glucose 135 H Lactate 3.0 H FiO2 32.0 Crit Value Called To Crit Value Called By Crit Value Read Back Blood Gas Notified Time Potassium Carbon Dioxide Anion Gap BUN Creatinine Est GFR ( Amer) Est GFR (Non-Af Amer) POC Glucose (mg/dL) Random Glucose Calcium Magnesium Total Bilirubin AST ALT Alkaline Phosphatase Troponin I NT-Pro-B Natriuret Pep Total Protein Albumin Globulin Albumin/Globulin Ratio TSH 3rd Generation Arterial Blood Potassium 4.3 Venous Blood Potassium Influenza Typ A,B (EIA) 01/26/18 01/27/18 01/27/18 22:40 06:46 10:21 WBC 11.9 H RBC 4.52 Hgb 11.7 L Hct 35.8 MCV 79.1 L MCH 25.8 L MCHC 32.6 L RDW 14.3 Plt Count 164 MPV 9.0 Neut % (Auto) 85.1 H Lymph % (Auto) 7.0 L Gibson % (Auto) 7.6 Eos % (Auto) 0.0 Baso % (Auto) 0.3 Neut # (Auto) 10.2 H Lymph # (Auto) 0.8 L Gibson # (Auto) 0.9 H Eos # (Auto) 0.0 Baso # (Auto) 0.0 Neutrophils % (Manual) 77 H Band Neutrophils % 6 H Lymphocytes % (Manual) 10 L Monocytes % (Manual) 7 Platelet Estimate Normal RBC Morphology Normal PT INR APTT Puncture Site pCO2 pO2 HCO3 ABG pH ABG Total CO2 ABG O2 Saturation ABG Base Excess Carl Test ABG Potassium VBG pH VBG pCO2 VBG HCO3 VBG Total CO2 VBG O2 Sat (Calc) VBG Base Excess VBG Potassium A-a O2 Difference Respiratory Index Sodium 141 Chloride 104 Glucose Lactate FiO2 Crit Value Called To Crit Value Called By Crit Value Read Back Blood Gas Notified Time Potassium 5.2 Carbon Dioxide 21 L Anion Gap 22 H BUN 29 H Creatinine 2.3 H Est GFR ( Amer) 34 Est GFR (Non-Af Amer) 28 POC Glucose (mg/dL) 244 H Random Glucose 141 H Calcium 9.3 Magnesium 1.6 Total Bilirubin 0.5 AST 40 ALT 83 H D Alkaline Phosphatase 103 Troponin I 0.0200 NT-Pro-B Natriuret Pep 1490 H Total Protein 7.5 Albumin 4.4 Globulin 3.0 Albumin/Globulin Ratio 1.5 TSH 3rd Generation 2.76 Arterial Blood Potassium Venous Blood Potassium Influenza Typ A,B (EIA) 01/27/18 01/27/18 10:21 12:15 WBC RBC Hgb Hct MCV MCH MCHC RDW Plt Count MPV Neut % (Auto) Lymph % (Auto) Gibson % (Auto) Eos % (Auto) Baso % (Auto) Neut # (Auto) Lymph # (Auto) Gibson # (Auto) Eos # (Auto) Baso # (Auto) Neutrophils % (Manual) Band Neutrophils % Lymphocytes % (Manual) Monocytes % (Manual) Platelet Estimate RBC Morphology PT INR APTT Puncture Site pCO2 pO2 HCO3 ABG pH ABG Total CO2 ABG O2 Saturation ABG Base Excess Carl Test ABG Potassium VBG pH VBG pCO2 VBG HCO3 VBG Total CO2 VBG O2 Sat (Calc) VBG Base Excess VBG Potassium A-a O2 Difference Respiratory Index Sodium 143 Chloride 106 Glucose Lactate FiO2 Crit Value Called To Crit Value Called By Crit Value Read Back Blood Gas Notified Time Potassium 4.4 Carbon Dioxide 21 L Anion Gap 21 H BUN 32 H Creatinine 2.2 H Est GFR ( Amer) 36 Est GFR (Non-Af Amer) 29 POC Glucose (mg/dL) 206 H Random Glucose 255 H Calcium 8.9 Magnesium Total Bilirubin AST ALT Alkaline Phosphatase Troponin I NT-Pro-B Natriuret Pep Total Protein Albumin Globulin Albumin/Globulin Ratio TSH 3rd Generation Arterial Blood Potassium Venous Blood Potassium Influenza Typ A,B (EIA)
[2018-01-27] MEDS ORDERED: Meropenem 1 GM in Sodium Chloride 0.9% 100 ML IVPB SCH (12:30)
--- NOTE | 2018-01-27 12:46 | CARD ---
APPROVED REPORT Date of service: 01/26/2018 EKG Measurement Heart [id number] <Conclusion> Sinus tachycardia with 1st degree AV block Left axis deviation Minimal voltage criteria for LVH, may be normal variant Nonspecific ST and T wave abnormality Abnormal ECG
[2018-01-27] MEDS: Vancomycin 1 gm/NS 200 ml 1 GM/200 ML BAG IVPB SCH (13:49)
[2018-01-27] MEDS: Sodium Chloride 0.9% 1,000 ML IV SCH (14:47)
[2018-01-27 14:57] LABS: SQUAMOUS EPITHIAL 1 /hpf (0-5); URINE AMORPHOUS SEDIMENT RARE /ul (<OCC); URINE BACTERIA RARE (<OCC); URINE BILIRUBIN NEGATIVE (NEGATIVE); URINE BLOOD 3+ (NEGATIVE); URINE CLARITY Hazy (Clear); URINE COLOR Yellow (YELLOW); URINE GLUCOSE (UA) 2+ mg/dL (Normal); URINE HYALINE CAST 0-2 /lpf (0-2); URINE LEUKOCYTE ESTERASE NEG Leu/uL (Negative); URINE PROTEIN 2+ mg/dL (NEGATIVE); URINE UROBILINOGEN NORMAL mg/dL (0.2-1.0)
--- NOTE | 2018-01-27 16:04 | CP.PCM.CON ---
History of Present Illness - History of Present Illness History of Present Illness: History obtained from medical records as patient is unable to answer questions. Patient is a 72-year-old male with PMHx of CVA, Dementia, DM-2, HTN, Hypercholesterolemia, CAD s/p CABG and 2 stents who was brought to the ED from [facility] due to fever, cough, and chest congestion. Upon admission (01/26), patient had a temperature of 102.4F, and has remained febrile with highest temp of 102.9F noted. As per nursing, patient has been coughing a lot with copious sputum production, which has been getting suctioned. During exam, patient in mild respiratory distress due to cough. Patient on NC at 2L/min. Labs: WBC 11.9, Bands 6. Blood gases - increased lactate of 8.0 noted upon admission 01/26 @0140, and 3.0 @ 2235 on 01/26. CXR 01/26 - No acute findings. PMHx: CVA, dementia, DM2, HTN, hypercholesterolemia, CAD, CHF PSHx: CABG, 2 coronary stent placements Allergies: NKDA Social Hx: None as per medical records Family Hx: No Known family hx Review of Systems - Review of Systems Systems not reviewed;Unavailable: Dementia Past Patient History - Infectious Disease Hx of Infectious Diseases: None - Past Medical History & Family History Past Medical History?: Yes - Past Social History Smoking Status: Never Smoked - CARDIAC Hx Cardiac Disorders: Yes Hx Hypercholesterolemia: Yes Hx Hypertension: Yes - PULMONARY Hx Chronic Obstructive Pulmonary Disease (COPD): No - NEUROLOGICAL HX Cerebrovascular Accident: Yes - HEENT Hx HEENT Problems: No - RENAL Hx Chronic Kidney Disease: No - ENDOCRINE/METABOLIC Hx Diabetes Mellitus Type 2: Yes - HEMATOLOGICAL/ONCOLOGICAL Hx Blood Disorders: No - INTEGUMENTARY Hx Dermatological Problems: No - MUSCULOSKELETAL/RHEUMATOLOGICAL Hx Arthritis: No Hx Falls: No Hx Rheumatoid Arthritis: No - GASTROINTESTINAL Hx Gastrointestinal Disorders: No - GENITOURINARY/GYNECOLOGICAL Hx Sexually Transmitted Disorders: Yes - PSYCHIATRIC Hx Depression: Yes (SINGLE EPISODE) Hx Substance Use: No - SURGICAL HISTORY Hx Coronary Artery Bypass Graft: Yes Hx Coronary Stent: Yes (x2) - ANESTHESIA Hx Anesthesia: Yes Hx Anesthesia Reactions: No Hx Malignant Hyperthermia: No Meds Allergies/Adverse Reactions: Allergies Allergy/AdvReac Type Severity Reaction Status Date / Time No Known Allergies Allergy Verified 01/26/18 22:04 - Medications Medications: Current Medications Acetaminophen (Tylenol 325mg Tab) 325 mg PO Q4 PRN PRN Reason: Pain, Mild (1-3) Al Hydrox/Mg Hydrox/Simethicone (Maalox Plus 30 Ml) 30 ml PO Q4 PRN PRN Reason: GI distress Glimepiride (Amaryl) 2 mg PO DAILY [facility] Last Admin: 01/27/18 09:31 Dose: 2 mg Guaifenesin/Dextromethorphan (Robitussin Dm) 5 ml PO Q6 PRN PRN Reason: Cough Last Admin: 01/27/18 12:46 Dose: 5 ml Heparin Sodium (Porcine) (Heparin) 5,000 units SC Q8 [facility] Last Admin: 01/27/18 14:38 Dose: 5,000 units Home Med (Metformin Hcl [Glucophage]) 1,000 mg PO BID [facility] Azithromycin 500 mg/ Sodium (Chloride) 250 mls @ 250 mls/hr IVPB DAILY [facility]; Protocol Last Admin: 01/27/18 09:30 Dose: 250 mls/hr Sodium Chloride (Sodium Chloride 0.9%) 1,000 mls @ 60 mls/hr IV .[id number] [facility] Last Admin: 01/27/18 14:47 Dose: Not Given Meropenem 500 mg/ Sodium (Chloride) 100 mls @ 200 mls/hr IVPB Q8H [facility]; Protocol Vancomycin/Sodium Chloride (Vancomycin 1 Gm/Ns 200 Ml) 1 gm in 200 mls @ 133.333 mls/hr IVPB Q24H [facility]; Protocol Last Admin: 01/27/18 13:49 Dose: 133.333 mls/hr Influenza Virus Vaccine (Fluzone Quad [id number]) 60 mcg IM .ONCE ONE Stop: 01/28/18 10:01 Insulin Glargine (Lantus) 20 unit SC HS [facility] Insulin Human Regular (Novolin R) 0 unit SC ACHS [facility]; Protocol Last Admin: 01/27/18 12:44 Dose: 2 unit Magnesium Hydroxide (Milk Of Magnesia) 30 ml PO TID [facility] Last Admin: 01/27/18 14:38 Dose: 30 ml Metoprolol Tartrate (Lopressor) 25 mg PO BID [facility] Last Admin: 01/27/18 09:31 Dose: 25 mg Rosuvastatin Calcium (Crestor) 10 mg PO HS [facility] Physical Exam - Head Exam Head Exam: ATRAUMATIC, NORMOCEPHALIC - ENT Exam ENT Exam: Mucous Membranes Moist - Neck Exam Neck exam: Positive for: Normal Inspection - Respiratory Exam Respiratory Exam: Rales, Rhonchi - Cardiovascular Exam Cardiovascular Exam: REGULAR RHYTHM - GI/Abdominal Exam GI & Abdominal Exam: Normal Bowel Sounds Results - Vital Signs Recent Vital Signs: Last Vital Signs Temp 99.8 F H 01/27/18 08:26 Pulse 115 H 01/27/18 08:26 Resp 20 01/27/18 08:26 BP 120/73 01/27/18 09:31 Pulse Ox 100 01/27/18 08:26 - Labs Result Diagrams: 01/27/18 10:21 01/27/18 10:21 Labs: Laboratory Results - last 24 hr 01/26/18 01/26/18 01/26/18 01:40 22:09 22:30 WBC RBC Hgb Hct MCV MCH MCHC RDW Plt Count MPV Neut % (Auto) Lymph % (Auto) Wright % (Auto) Eos % (Auto) Baso % (Auto) Neut # (Auto) Lymph # (Auto) Wright # (Auto) Eos # (Auto) Baso # (Auto) Neutrophils % (Manual) Band Neutrophils % Lymphocytes % (Manual) Monocytes % (Manual) Platelet Estimate RBC Morphology PT INR APTT Puncture Site pCO2 pO2 28 L HCO3 ABG pH ABG Total CO2 ABG O2 Saturation ABG Base Excess Carl Test ABG Potassium VBG pH 7.23 L VBG pCO2 41 VBG HCO3 15.6 VBG Total CO2 18.5 L VBG O2 Sat (Calc) 55.6 VBG Base Excess -9.9 L VBG Potassium 4.6 A-a O2 Difference Respiratory Index Sodium 142.0 Chloride 106.0 Glucose 213 H Lactate 8.0 H* FiO2 Crit Value Called To Marcy rn Crit Value Called By Cody rt Crit Value Read Back Y Blood Gas Notified Time 200 Potassium Carbon Dioxide Anion Gap BUN Creatinine Est GFR ( Amer) Est GFR (Non-Af Amer) POC Glucose (mg/dL) 136 H Random Glucose Calcium Magnesium Total Bilirubin AST ALT Alkaline Phosphatase Troponin I NT-Pro-B Natriuret Pep Total Protein Albumin Globulin Albumin/Globulin Ratio TSH 3rd Generation Arterial Blood Potassium Venous Blood Potassium 4.6 Urine Color Urine Clarity Urine pH Ur Specific [place] Urine Protein Urine Glucose (UA) Urine Ketones Urine Blood Urine Nitrate Urine Bilirubin Urine Urobilinogen Ur Leukocyte Esterase Urine WBC (Auto) Urine RBC (Auto) Ur Squamous Epith Cells Amorphous Sediment Urine Bacteria Hyaline Casts Influenza Typ A,B (EIA) Negative for flu a/b 01/26/18 01/26/18 01/26/18 22:35 22:40 22:40 WBC 13.0 H D RBC 4.99 Hgb 12.8 Hct 39.6 MCV 79.3 L MCH 25.7 L MCHC 32.4 L RDW 14.0 Plt Count 175 MPV 9.3 Neut % (Auto) 79.4 H Lymph % (Auto) 9.4 L Wright % (Auto) 10.7 H Eos % (Auto) 0.1 Baso % (Auto) 0.4 Neut # (Auto) 10.3 H Lymph # (Auto) 1.2 Wright # (Auto) 1.4 H Eos # (Auto) 0.0 Baso # (Auto) 0.1 Neutrophils % (Manual) 81 H Band Neutrophils % Lymphocytes % (Manual) 13 L Monocytes % (Manual) 6 Platelet Estimate Normal RBC Morphology PT 17.4 H INR 1.6 APTT 32 Puncture Site Rra pCO2 31 L pO2 135 H HCO3 21.5 ABG pH 7.40 ABG Total CO2 20.2 L ABG O2 Saturation 99.0 H ABG Base Excess -4.5 L Carl Test Pos ABG Potassium 4.3 VBG pH VBG pCO2 VBG HCO3 VBG Total CO2 VBG O2 Sat (Calc) VBG Base Excess VBG Potassium A-a O2 Difference 54.0 Respiratory Index 0.4 Sodium 138.0 Chloride 109.0 H Glucose 135 H Lactate 3.0 H FiO2 32.0 Crit Value Called To Crit Value Called By Crit Value Read Back Blood Gas Notified Time Potassium Carbon Dioxide Anion Gap BUN Creatinine Est GFR ( Amer) Est GFR (Non-Af Amer) POC Glucose (mg/dL) Random Glucose Calcium Magnesium Total Bilirubin AST ALT Alkaline Phosphatase Troponin I NT-Pro-B Natriuret Pep Total Protein Albumin Globulin Albumin/Globulin Ratio TSH 3rd Generation Arterial Blood Potassium 4.3 Venous Blood Potassium Urine Color Urine Clarity Urine pH Ur Specific [place] Urine Protein Urine Glucose (UA) Urine Ketones Urine Blood Urine Nitrate Urine Bilirubin Urine Urobilinogen Ur Leukocyte Esterase Urine WBC (Auto) Urine RBC (Auto) Ur Squamous Epith Cells Amorphous Sediment Urine Bacteria Hyaline Casts Influenza Typ A,B (EIA) 01/26/18 01/27/18 01/27/18 22:40 06:46 10:21 WBC 11.9 H RBC 4.52 Hgb 11.7 L Hct 35.8 MCV 79.1 L MCH 25.8 L MCHC 32.6 L RDW 14.3 Plt Count 164 MPV 9.0 Neut % (Auto) 85.1 H Lymph % (Auto) 7.0 L Wright % (Auto) 7.6 Eos % (Auto) 0.0 Baso % (Auto) 0.3 Neut # (Auto) 10.2 H Lymph # (Auto) 0.8 L Wright # (Auto) 0.9 H Eos # (Auto) 0.0 Baso # (Auto) 0.0 Neutrophils % (Manual) 77 H Band Neutrophils % 6 H Lymphocytes % (Manual) 10 L Monocytes % (Manual) 7 Platelet Estimate Normal RBC Morphology Normal PT INR APTT Puncture Site pCO2 pO2 HCO3 ABG pH ABG Total CO2 ABG O2 Saturation ABG Base Excess Carl Test ABG Potassium VBG pH VBG pCO2 VBG HCO3 VBG Total CO2 VBG O2 Sat (Calc) VBG Base Excess VBG Potassium A-a O2 Difference Respiratory Index Sodium 141 Chloride 104 Glucose Lactate FiO2 Crit Value Called To Crit Value Called By Crit Value Read Back Blood Gas Notified Time Potassium 5.2 Carbon Dioxide 21 L Anion Gap 22 H BUN 29 H Creatinine 2.3 H Est GFR ( Amer) 34 Est GFR (Non-Af Amer) 28 POC Glucose (mg/dL) 244 H Random Glucose 141 H Calcium 9.3 Magnesium 1.6 Total Bilirubin 0.5 AST 40 ALT 83 H D Alkaline Phosphatase 103 Troponin I 0.0200 NT-Pro-B Natriuret Pep 1490 H Total Protein 7.5 Albumin 4.4 Globulin 3.0 Albumin/Globulin Ratio 1.5 TSH 3rd Generation 2.76 Arterial Blood Potassium Venous Blood Potassium Urine Color Urine Clarity Urine pH Ur Specific [place] Urine Protein Urine Glucose (UA) Urine Ketones Urine Blood Urine Nitrate Urine Bilirubin Urine Urobilinogen Ur Leukocyte Esterase Urine WBC (Auto) Urine RBC (Auto) Ur Squamous Epith Cells Amorphous Sediment Urine Bacteria Hyaline Casts Influenza Typ A,B (EIA) 10/29/18 10/29/18 10/29/18 10:21 12:15 14:15 WBC RBC Hgb Hct MCV MCH MCHC RDW Plt Count MPV Neut % (Auto) Lymph % (Auto) Wright % (Auto) Eos % (Auto) Baso % (Auto) Neut # (Auto) Lymph # (Auto) Wright # (Auto) Eos # (Auto) Baso # (Auto) Neutrophils % (Manual) Band Neutrophils % Lymphocytes % (Manual) Monocytes % (Manual) Platelet Estimate RBC Morphology PT INR APTT Puncture Site pCO2 pO2 HCO3 ABG pH ABG Total CO2 ABG O2 Saturation ABG Base Excess Carl Test ABG Potassium VBG pH VBG pCO2 VBG HCO3 VBG Total CO2 VBG O2 Sat (Calc) VBG Base Excess VBG Potassium A-a O2 Difference Respiratory Index Sodium 143 Chloride 106 Glucose Lactate FiO2 Crit Value Called To Crit Value Called By Crit Value Read Back Blood Gas Notified Time Potassium 4.4 Carbon Dioxide 21 L Anion Gap 21 H BUN 32 H Creatinine 2.2 H Est GFR ( Amer) 36 Est GFR (Non-Af Amer) 29 POC Glucose (mg/dL) 206 H Random Glucose 255 H Calcium 8.9 Magnesium Total Bilirubin AST ALT Alkaline Phosphatase Troponin I NT-Pro-B Natriuret Pep Total Protein Albumin Globulin Albumin/Globulin Ratio TSH 3rd Generation Arterial Blood Potassium Venous Blood Potassium Urine Color Yellow Urine Clarity Hazy Urine pH 5.0 Ur Specific [place] 1.018 Urine Protein 2+ H Urine Glucose (UA) 2+ H Urine Ketones Negative Urine Blood 3+ H Urine Nitrate Negative Urine Bilirubin Negative Urine Urobilinogen Normal Ur Leukocyte Esterase Neg Urine WBC (Auto) 16 H Urine RBC (Auto) 45 H Ur Squamous Epith Cells 1 Amorphous Sediment Rare H Urine Bacteria Rare Hyaline Casts 0-2 Influenza Typ A,B (EIA) Assessment & Plan (1) Pneumonia Status: Acute Comment: very congested with copious amount off sputum. Continue antibiotics. Start bronchodilators. Mucolytic. Followup culture and sensitivity
[2018-01-27] MEDS: Acetylcysteine 20% Inhal Soln (4ml) INH SCH ×2 (16:30→21:05)
[2018-01-27] MEDS: Meropenem 500 MG in Sodium Chloride 0.9% 100 ML IVPB SCH ×2 (17:00→22:52)
--- NOTE | 2018-01-27 18:28 | CP.PCM.CON ---
History of Present Illness - History of Present Illness History of Present Illness: Mr. Hamm is a 69-year-old gentleman with history of type 2 diabetes on insulin that was complicated with coronary artery disease he underwent bypass surgery twice and an evaluation with a stress test was negative last year. The last c ardiac catheterization had patent MEDRANO bifurcates into the left anterior descending and the diagonal. He had some deterioration with his mental status was thought to be secondary to dehydration , lately in a group home, transfered for fever, cough Review of Systems - Review of Systems Systems not reviewed;Unavailable: Unstable Vital Signs - Constitutional Constitutional: absent: Anorexia, Weakness - EENT Eyes: absent: Discharge Ears: absent: Ear Discharge Nose/Mouth/Throat: absent: Epistaxis - Cardiovascular Cardiovascular: Dyspnea. absent: Acrocyanosis, Chest Pain, Diaphoresis, Palpitations, Syncope - Respiratory Respiratory: Cough, Dyspnea. absent: Hemoptysis - Gastrointestinal Gastrointestinal: absent: Abdominal Pain - Genitourinary Genitourinary: absent: Change in Urinary Stream Past Patient History - Infectious Disease Hx of Infectious Diseases: None - Past Medical History & Family History Past Medical History?: Yes - Past Social History Smoking Status: Never Smoked - CARDIAC Hx Cardiac Disorders: Yes Hx Hypercholesterolemia: Yes Hx Hypertension: Yes - PULMONARY Hx Chronic Obstructive Pulmonary Disease (COPD): No - NEUROLOGICAL HX Cerebrovascular Accident: Yes - HEENT Hx HEENT Problems: No - RENAL Hx Chronic Kidney Disease: No - ENDOCRINE/METABOLIC Hx Diabetes Mellitus Type 2: Yes - HEMATOLOGICAL/ONCOLOGICAL Hx Blood Disorders: No - INTEGUMENTARY Hx Dermatological Problems: No - MUSCULOSKELETAL/RHEUMATOLOGICAL Hx Arthritis: No Hx Falls: No Hx Rheumatoid Arthritis: No - GASTROINTESTINAL Hx Gastrointestinal Disorders: No - GENITOURINARY/GYNECOLOGICAL Hx Sexually Transmitted Disorders: Yes - PSYCHIATRIC Hx Depression: Yes (SINGLE EPISODE) Hx Substance Use: No - SURGICAL HISTORY Hx Coronary Artery Bypass Graft: Yes Hx Coronary Stent: Yes (x2) - ANESTHESIA Hx Anesthesia: Yes Hx Anesthesia Reactions: No Hx Malignant Hyperthermia: No Meds Allergies/Adverse Reactions: Allergies Allergy/AdvReac Type Severity Reaction Status Date / Time No Known Allergies Allergy Verified 01/26/18 22:04 - Medications Medications: Current Medications Acetaminophen (Tylenol 325mg Tab) 325 mg PO Q4 PRN PRN Reason: Pain, Mild (1-3) Acetylcysteine (Acetylcysteine 20%) 4 ml INH RQ6 [facility] Al Hydrox/Mg Hydrox/Simethicone (Maalox Plus 30 Ml) 30 ml PO Q4 PRN PRN Reason: GI distress Albuterol/Ipratropium (Duoneb 3 Mg/0.5 Mg (3 Ml) Ud) 3 ml INH RQ6 [place] Glimepiride (Amaryl) 2 mg PO DAILY [facility] Last Admin: 01/27/18 09:31 Dose: 2 mg Heparin Sodium (Porcine) (Heparin) 5,000 units SC Q8 [facility] Last Admin: 01/27/18 14:38 Dose: 5,000 units Azithromycin 500 mg/ Sodium (Chloride) 250 mls @ 250 mls/hr IVPB DAILY [facility]; Protocol Last Admin: 01/27/18 09:30 Dose: 250 mls/hr Sodium Chloride (Sodium Chloride 0.9%) 1,000 mls @ 60 mls/hr IV .[id number] [facility] Last Admin: 01/27/18 14:47 Dose: Not Given Meropenem 500 mg/ Sodium (Chloride) 100 mls @ 200 mls/hr IVPB Q8H [facility]; Protocol Last Admin: 01/27/18 17:00 Dose: 200 mls/hr Vancomycin/Sodium Chloride (Vancomycin 1 Gm/Ns 200 Ml) 1 gm in 200 mls @ 133.333 mls/hr IVPB Q24H [facility]; Protocol Last Admin: 01/27/18 13:49 Dose: 133.333 mls/hr Influenza Virus Vaccine (Fluzone Quad [id number]) 60 mcg IM .ONCE ONE Stop: 01/28/18 10:01 Insulin Glargine (Lantus) 20 unit SC [facility] Insulin Human Regular (Novolin R) 0 unit SC ACHS [facility]; Protocol Last Admin: 01/27/18 17:14 Dose: Not Given Magnesium Hydroxide (Milk Of Magnesia) 30 ml PO TID [facility] Last Admin: 01/27/18 18:00 Dose: 30 ml Metoprolol Tartrate (Lopressor) 25 mg PO BID [facility] Last Admin: 01/27/18 18:00 Dose: 25 mg Rosuvastatin Calcium (Crestor) 10 mg PO HS [facility] Physical Exam - Constitutional Appears: Toxic - Head Exam Head Exam: ATRAUMATIC - Eye Exam Eye Exam: EOMI - ENT Exam ENT Exam: Mucous Membranes Moist - Neck Exam Neck exam: Negative for: Lymphadenopathy, Thyromegaly - Respiratory Exam Respiratory Exam: Clear to Auscultation Bilateral, Rhonchi - Cardiovascular Exam Cardiovascular Exam: REGULAR RHYTHM, Systolic Murmur - GI/Abdominal Exam GI & Abdominal Exam: Normal Bowel Sounds. absent: Organomegaly - Rectal Exam Rectal Exam: Deferred - Extremities Exam Extremities exam: Positive for: normal capillary refill. Negative for: calf tenderness - Neurological Exam Neurological exam: Alert, Altered - Psychiatric Exam Psychiatric exam: Depressed Results - Vital Signs Recent Vital Signs: Last Vital Signs Temp 99.2 F 01/27/18 15:00 Pulse 88 01/27/18 15:00 Resp 20 01/27/18 15:00 BP 133/72 01/27/18 18:00 Pulse Ox 95 01/27/18 15:00 - Labs Result Diagrams: 01/27/18 10:21 01/27/18 10:21 Labs: Laboratory Results - last 24 hr 01/26/18 01/26/18 01/26/18 01:40 22:09 22:30 WBC RBC Hgb Hct MCV MCH MCHC RDW Plt Count MPV Neut % (Auto) Lymph % (Auto) [place] % (Auto) Eos % (Auto) Baso % (Auto) Neut # (Auto) Lymph # (Auto) [place] # (Auto) Eos # (Auto) Baso # (Auto) Neutrophils % (Manual) Band Neutrophils % Lymphocytes % (Manual) Monocytes % (Manual) Platelet Estimate RBC Morphology PT INR APTT Puncture Site pCO2 pO2 28 L HCO3 ABG pH ABG Total CO2 ABG O2 Saturation ABG Base Excess Carl Test ABG Potassium VBG pH 7.23 L VBG pCO2 41 VBG HCO3 15.6 VBG Total CO2 18.5 L VBG O2 Sat (Calc) 55.6 VBG Base Excess -9.9 L VBG Potassium 4.6 A-a O2 Difference Respiratory Index Sodium 142.0 Chloride 106.0 Glucose 213 H Lactate 8.0 H* FiO2 Crit Value Called To Marcy rn Crit Value Called By Cody rt Crit Value Read Back Y Blood Gas Notified Time 200 Potassium Carbon Dioxide Anion Gap BUN Creatinine Est GFR ( Amer) Est GFR (Non-Af Amer) POC Glucose (mg/dL) 136 H Random Glucose Calcium Magnesium Total Bilirubin AST ALT Alkaline Phosphatase Troponin I NT-Pro-B Natriuret Pep Total Protein Albumin Globulin Albumin/Globulin Ratio Procalcitonin TSH 3rd Generation Arterial Blood Potassium Venous Blood Potassium 4.6 Urine Color Urine Clarity Urine pH Ur Specific [place] Urine Protein Urine Glucose (UA) Urine Ketones Urine Blood Urine Nitrate Urine Bilirubin Urine Urobilinogen Ur Leukocyte Esterase Urine WBC (Auto) Urine RBC (Auto) Ur Squamous Epith Cells Amorphous Sediment Urine Bacteria Hyaline Casts Influenza Typ A,B (EIA) Negative for flu a/b Ur L.pneumophila Ag 01/26/18 01/26/18 01/26/18 22:35 22:40 22:40 WBC 13.0 H D RBC 4.99 Hgb 12.8 Hct 39.6 MCV 79.3 L MCH 25.7 L MCHC 32.4 L RDW 14.0 Plt Count 175 MPV 9.3 Neut % (Auto) 79.4 H Lymph % (Auto) 9.4 L [place] % (Auto) 10.7 H Eos % (Auto) 0.1 Baso % (Auto) 0.4 Neut # (Auto) 10.3 H Lymph # (Auto) 1.2 [place] # (Auto) 1.4 H Eos # (Auto) 0.0 Baso # (Auto) 0.1 Neutrophils % (Manual) 81 H Band Neutrophils % Lymphocytes % (Manual) 13 L Monocytes % (Manual) 6 Platelet Estimate Normal RBC Morphology PT 17.4 H INR 1.6 APTT 32 Puncture Site Rra pCO2 31 L pO2 135 H HCO3 21.5 ABG pH 7.40 ABG Total CO2 20.2 L ABG O2 Saturation 99.0 H ABG Base Excess -4.5 L Carl Test Pos ABG Potassium 4.3 VBG pH VBG pCO2 VBG HCO3 VBG Total CO2 VBG O2 Sat (Calc) VBG Base Excess VBG Potassium A-a O2 Difference 54.0 Respiratory Index 0.4 Sodium 138.0 Chloride 109.0 H Glucose 135 H Lactate 3.0 H FiO2 32.0 Crit Value Called To Crit Value Called By Crit Value Read Back Blood Gas Notified Time Potassium Carbon Dioxide Anion Gap BUN Creatinine Est GFR ( Amer) Est GFR (Non-Af Amer) POC Glucose (mg/dL) Random Glucose Calcium Magnesium Total Bilirubin AST ALT Alkaline Phosphatase Troponin I NT-Pro-B Natriuret Pep Total Protein Albumin Globulin Albumin/Globulin Ratio Procalcitonin TSH 3rd Generation Arterial Blood Potassium 4.3 Venous Blood Potassium Urine Color Urine Clarity Urine pH Ur Specific [place] Urine Protein Urine Glucose (UA) Urine Ketones Urine Blood Urine Nitrate Urine Bilirubin Urine Urobilinogen Ur Leukocyte Esterase Urine WBC (Auto) Urine RBC (Auto) Ur Squamous Epith Cells Amorphous Sediment Urine Bacteria Hyaline Casts Influenza Typ A,B (EIA) Ur L.pneumophila Ag 01/26/18 01/27/18 01/27/18 22:40 06:46 10:21 WBC RBC Hgb Hct MCV MCH MCHC RDW Plt Count MPV Neut % (Auto) Lymph % (Auto) [place] % (Auto) Eos % (Auto) Baso % (Auto) Neut # (Auto) Lymph # (Auto) [place] # (Auto) Eos # (Auto) Baso # (Auto) Neutrophils % (Manual) Band Neutrophils % Lymphocytes % (Manual) Monocytes % (Manual) Platelet Estimate RBC Morphology PT INR APTT Puncture Site pCO2 pO2 HCO3 ABG pH ABG Total CO2 ABG O2 Saturation ABG Base Excess Carl Test ABG Potassium VBG pH VBG pCO2 VBG HCO3 VBG Total CO2 VBG O2 Sat (Calc) VBG Base Excess VBG Potassium A-a O2 Difference Respiratory Index Sodium 141 Chloride 104 Glucose Lactate FiO2 Crit Value Called To Crit Value Called By Crit Value Read Back Blood Gas Notified Time Potassium 5.2 Carbon Dioxide 21 L Anion Gap 22 H BUN 29 H Creatinine 2.3 H Est GFR ( Amer) 34 Est GFR (Non-Af Amer) 28 POC Glucose (mg/dL) 244 H Random Glucose 141 H Calcium 9.3 Magnesium 1.6 Total Bilirubin 0.5 AST 40 ALT 83 H D Alkaline Phosphatase 103 Troponin I 0.0200 NT-Pro-B Natriuret Pep 1490 H Total Protein 7.5 Albumin 4.4 Globulin 3.0 Albumin/Globulin Ratio 1.5 Procalcitonin 4.84 H TSH 3rd Generation 2.76 Arterial Blood Potassium Venous Blood Potassium Urine Color Urine Clarity Urine pH Ur Specific [place] Urine Protein Urine Glucose (UA) Urine Ketones Urine Blood Urine Nitrate Urine Bilirubin Urine Urobilinogen Ur Leukocyte Esterase Urine WBC (Auto) Urine RBC (Auto) Ur Squamous Epith Cells Amorphous Sediment Urine Bacteria Hyaline Casts Influenza Typ A,B (EIA) Ur L.pneumophila Ag 01/27/18 01/27/18 01/27/18 10:21 10:21 12:15 WBC 11.9 H RBC 4.52 Hgb 11.7 L Hct 35.8 MCV 79.1 L MCH 25.8 L MCHC 32.6 L RDW 14.3 Plt Count 164 MPV 9.0 Neut % (Auto) 85.1 H Lymph % (Auto) 7.0 L [place] % (Auto) 7.6 Eos % (Auto) 0.0 Baso % (Auto) 0.3 Neut # (Auto) 10.2 H Lymph # (Auto) 0.8 L [place] # (Auto) 0.9 H Eos # (Auto) 0.0 Baso # (Auto) 0.0 Neutrophils % (Manual) 77 H Band Neutrophils % 6 H Lymphocytes % (Manual) 10 L Monocytes % (Manual) 7 Platelet Estimate Normal RBC Morphology Normal PT INR APTT Puncture Site pCO2 pO2 HCO3 ABG pH ABG Total CO2 ABG O2 Saturation ABG Base Excess Carl Test ABG Potassium VBG pH VBG pCO2 VBG HCO3 VBG Total CO2 VBG O2 Sat (Calc) VBG Base Excess VBG Potassium A-a O2 Difference Respiratory Index Sodium 143 Chloride 106 Glucose Lactate FiO2 Crit Value Called To Crit Value Called By Crit Value Read Back Blood Gas Notified Time Potassium 4.4 Carbon Dioxide 21 L Anion Gap 21 H BUN 32 H Creatinine 2.2 H Est GFR ( Amer) 36 Est GFR (Non-Af Amer) 29 POC Glucose (mg/dL) 206 H Random Glucose 255 H Calcium 8.9 Magnesium Total Bilirubin AST ALT Alkaline Phosphatase Troponin I NT-Pro-B Natriuret Pep Total Protein Albumin Globulin Albumin/Globulin Ratio Procalcitonin TSH 3rd Generation Arterial Blood Potassium Venous Blood Potassium Urine Color Urine Clarity Urine pH Ur Specific [place] Urine Protein Urine Glucose (UA) Urine Ketones Urine Blood Urine Nitrate Urine Bilirubin Urine Urobilinogen Ur Leukocyte Esterase Urine WBC (Auto) Urine RBC (Auto) Ur Squamous Epith Cells Amorphous Sediment Urine Bacteria Hyaline Casts Influenza Typ A,B (EIA) Ur L.pneumophila Ag 01/27/18 01/27/18 14:15 14:39 WBC RBC Hgb Hct MCV MCH MCHC RDW Plt Count MPV Neut % (Auto) Lymph % (Auto) [place] % (Auto) Eos % (Auto) Baso % (Auto) Neut # (Auto) Lymph # (Auto) [place] # (Auto) Eos # (Auto) Baso # (Auto) Neutrophils % (Manual) Band Neutrophils % Lymphocytes % (Manual) Monocytes % (Manual) Platelet Estimate RBC Morphology PT INR APTT Puncture Site pCO2 pO2 HCO3 ABG pH ABG Total CO2 ABG O2 Saturation ABG Base Excess Carl Test ABG Potassium VBG pH VBG pCO2 VBG HCO3 VBG Total CO2 VBG O2 Sat (Calc) VBG Base Excess VBG Potassium A-a O2 Difference Respiratory Index Sodium Chloride Glucose Lactate FiO2 Crit Value Called To Crit Value Called By Crit Value Read Back Blood Gas Notified Time Potassium Carbon Dioxide Anion Gap BUN Creatinine Est GFR ( Amer) Est GFR (Non-Af Amer) POC Glucose (mg/dL) Random Glucose Calcium Magnesium Total Bilirubin AST ALT Alkaline Phosphatase Troponin I NT-Pro-B Natriuret Pep Total Protein Albumin Globulin Albumin/Globulin Ratio Procalcitonin TSH 3rd Generation Arterial Blood Potassium Venous Blood Potassium Urine Color Yellow Urine Clarity Hazy Urine pH 5.0 Ur Specific [place] 1.018 Urine Protein 2+ H Urine Glucose (UA) 2+ H Urine Ketones Negative Urine Blood 3+ H Urine Nitrate Negative Urine Bilirubin Negative Urine Urobilinogen Normal Ur Leukocyte Esterase Neg Urine WBC (Auto) 16 H Urine RBC (Auto) 45 H Ur Squamous Epith Cells 1 Amorphous Sediment Rare H Urine Bacteria Rare Hyaline Casts 0-2 Influenza Typ A,B (EIA) Ur L.pneumophila Ag Negative Assessment & Plan (1) Diabetes mellitus type 2, uncomplicated Status: Acute (2) S/P CABG (coronary artery bypass graft) Status: Chronic Priority: Low Comment: stable observe (3) Dehydration Status: Acute (4) Fever Status: Acute Priority: Medium Comment: f/u with ID
[2018-01-27] MEDS: Albuterol-Ipratrop 3 mg / 0.5 (3 ml) UD INH SCH (21:05)
--- NOTE | 2018-01-27 22:19 | CP.PCM.HP ---
Past Patient History - Infectious Disease Hx of Infectious Diseases: None - Past Medical History & Family History Past Medical History?: Yes - Past Social History Smoking Status: Never Smoked - CARDIAC Hx Cardiac Disorders: Yes Hx Hypercholesterolemia: Yes Hx Hypertension: Yes - PULMONARY Hx Chronic Obstructive Pulmonary Disease (COPD): No - NEUROLOGICAL HX Cerebrovascular Accident: Yes - HEENT Hx HEENT Problems: No - RENAL Hx Chronic Kidney Disease: No - ENDOCRINE/METABOLIC Hx Diabetes Mellitus Type 2: Yes - HEMATOLOGICAL/ONCOLOGICAL Hx Blood Disorders: No - INTEGUMENTARY Hx Dermatological Problems: No - MUSCULOSKELETAL/RHEUMATOLOGICAL Hx Arthritis: No Hx Falls: No Hx Rheumatoid Arthritis: No - GASTROINTESTINAL Hx Gastrointestinal Disorders: No - GENITOURINARY/GYNECOLOGICAL Hx Sexually Transmitted Disorders: Yes - PSYCHIATRIC Hx Depression: Yes (SINGLE EPISODE) Hx Substance Use: No - SURGICAL HISTORY Hx Coronary Artery Bypass Graft: Yes Hx Coronary Stent: Yes (x2) - ANESTHESIA Hx Anesthesia: Yes Hx Anesthesia Reactions: No Hx Malignant Hyperthermia: No Meds Allergies/Adverse Reactions: Allergies Allergy/AdvReac Type Severity Reaction Status Date / Time No Known Allergies Allergy Verified 01/26/18 22:04 Results - Vital Signs Recent Vital Signs: Last Vital Signs Temp 99.2 F 01/27/18 15:00 Pulse 88 01/27/18 15:00 Resp 20 01/27/18 15:00 BP 133/72 01/27/18 18:00 Pulse Ox 95 01/27/18 15:00 - Labs Result Diagrams: 01/27/18 10:21 01/27/18 10:21 Labs: Laboratory Results - last 24 hr 01/26/18 01/26/18 01/26/18 01:40 22:09 22:30 WBC RBC Hgb Hct MCV MCH MCHC RDW Plt Count MPV Neut % (Auto) Lymph % (Auto) [place] % (Auto) Eos % (Auto) Baso % (Auto) Neut # (Auto) Lymph # (Auto) [place] # (Auto) Eos # (Auto) Baso # (Auto) Neutrophils % (Manual) Band Neutrophils % Lymphocytes % (Manual) Monocytes % (Manual) Platelet Estimate RBC Morphology PT INR APTT Puncture Site pCO2 pO2 28 L HCO3 ABG pH ABG Total CO2 ABG O2 Saturation ABG Base Excess Carl Test ABG Potassium VBG pH 7.23 L VBG pCO2 41 VBG HCO3 15.6 VBG Total CO2 18.5 L VBG O2 Sat (Calc) 55.6 VBG Base Excess -9.9 L VBG Potassium 4.6 A-a O2 Difference Respiratory Index Sodium 142.0 Chloride 106.0 Glucose 213 H Lactate 8.0 H* FiO2 Crit Value Called To Marcy rn Crit Value Called By Cody rt Crit Value Read Back Y Blood Gas Notified Time 200 Potassium Carbon Dioxide Anion Gap BUN Creatinine Est GFR ( Amer) Est GFR (Non-Af Amer) POC Glucose (mg/dL) 136 H Random Glucose Lactic Acid Calcium Magnesium Total Bilirubin AST ALT Alkaline Phosphatase Troponin I NT-Pro-B Natriuret Pep Total Protein Albumin Globulin Albumin/Globulin Ratio Procalcitonin TSH 3rd Generation Arterial Blood Potassium Venous Blood Potassium 4.6 Urine Color Urine Clarity Urine pH Ur Specific [place] Urine Protein Urine Glucose (UA) Urine Ketones Urine Blood Urine Nitrate Urine Bilirubin Urine Urobilinogen Ur Leukocyte Esterase Urine WBC (Auto) Urine RBC (Auto) Ur Squamous Epith Cells Amorphous Sediment Urine Bacteria Hyaline Casts Influenza Typ A,B (EIA) Negative for flu a/b Ur L.pneumophila Ag 01/26/18 01/26/18 01/26/18 22:35 22:40 22:40 WBC 13.0 H D RBC 4.99 Hgb 12.8 Hct 39.6 MCV 79.3 L MCH 25.7 L MCHC 32.4 L RDW 14.0 Plt Count 175 MPV 9.3 Neut % (Auto) 79.4 H Lymph % (Auto) 9.4 L [place] % (Auto) 10.7 H Eos % (Auto) 0.1 Baso % (Auto) 0.4 Neut # (Auto) 10.3 H Lymph # (Auto) 1.2 [place] # (Auto) 1.4 H Eos # (Auto) 0.0 Baso # (Auto) 0.1 Neutrophils % (Manual) 81 H Band Neutrophils % Lymphocytes % (Manual) 13 L Monocytes % (Manual) 6 Platelet Estimate Normal RBC Morphology PT 17.4 H INR 1.6 APTT 32 Puncture Site Rra pCO2 31 L pO2 135 H HCO3 21.5 ABG pH 7.40 ABG Total CO2 20.2 L ABG O2 Saturation 99.0 H ABG Base Excess -4.5 L Carl Test Pos ABG Potassium 4.3 VBG pH VBG pCO2 VBG HCO3 VBG Total CO2 VBG O2 Sat (Calc) VBG Base Excess VBG Potassium A-a O2 Difference 54.0 Respiratory Index 0.4 Sodium 138.0 Chloride 109.0 H Glucose 135 H Lactate 3.0 H FiO2 32.0 Crit Value Called To Crit Value Called By Crit Value Read Back Blood Gas Notified Time Potassium Carbon Dioxide Anion Gap BUN Creatinine Est GFR ( Amer) Est GFR (Non-Af Amer) POC Glucose (mg/dL) Random Glucose Lactic Acid Calcium Magnesium Total Bilirubin AST ALT Alkaline Phosphatase Troponin I NT-Pro-B Natriuret Pep Total Protein Albumin Globulin Albumin/Globulin Ratio Procalcitonin TSH 3rd Generation Arterial Blood Potassium 4.3 Venous Blood Potassium Urine Color Urine Clarity Urine pH Ur Specific [place] Urine Protein Urine Glucose (UA) Urine Ketones Urine Blood Urine Nitrate Urine Bilirubin Urine Urobilinogen Ur Leukocyte Esterase Urine WBC (Auto) Urine RBC (Auto) Ur Squamous Epith Cells Amorphous Sediment Urine Bacteria Hyaline Casts Influenza Typ A,B (EIA) Ur L.pneumophila Ag 01/26/18 01/27/18 01/27/18 22:40 06:46 10:21 WBC RBC Hgb Hct MCV MCH MCHC RDW Plt Count MPV Neut % (Auto) Lymph % (Auto) [place] % (Auto) Eos % (Auto) Baso % (Auto) Neut # (Auto) Lymph # (Auto) [place] # (Auto) Eos # (Auto) Baso # (Auto) Neutrophils % (Manual) Band Neutrophils % Lymphocytes % (Manual) Monocytes % (Manual) Platelet Estimate RBC Morphology PT INR APTT Puncture Site pCO2 pO2 HCO3 ABG pH ABG Total CO2 ABG O2 Saturation ABG Base Excess Carl Test ABG Potassium VBG pH VBG pCO2 VBG HCO3 VBG Total CO2 VBG O2 Sat (Calc) VBG Base Excess VBG Potassium A-a O2 Difference Respiratory Index Sodium 141 Chloride 104 Glucose Lactate FiO2 Crit Value Called To Crit Value Called By Crit Value Read Back Blood Gas Notified Time Potassium 5.2 Carbon Dioxide 21 L Anion Gap 22 H BUN 29 H Creatinine 2.3 H Est GFR ( Amer) 34 Est GFR (Non-Af Amer) 28 POC Glucose (mg/dL) 244 H Random Glucose 141 H Lactic Acid Calcium 9.3 Magnesium 1.6 Total Bilirubin 0.5 AST 40 ALT 83 H D Alkaline Phosphatase 103 Troponin I 0.0200 NT-Pro-B Natriuret Pep 1490 H Total Protein 7.5 Albumin 4.4 Globulin 3.0 Albumin/Globulin Ratio 1.5 Procalcitonin 4.84 H TSH 3rd Generation 2.76 Arterial Blood Potassium Venous Blood Potassium Urine Color Urine Clarity Urine pH Ur Specific [place] Urine Protein Urine Glucose (UA) Urine Ketones Urine Blood Urine Nitrate Urine Bilirubin Urine Urobilinogen Ur Leukocyte Esterase Urine WBC (Auto) Urine RBC (Auto) Ur Squamous Epith Cells Amorphous Sediment Urine Bacteria Hyaline Casts Influenza Typ A,B (EIA) Ur L.pneumophila Ag 01/27/18 01/27/18 01/27/18 10:21 10:21 12:15 WBC 11.9 H RBC 4.52 Hgb 11.7 L Hct 35.8 MCV 79.1 L MCH 25.8 L MCHC 32.6 L RDW 14.3 Plt Count 164 MPV 9.0 Neut % (Auto) 85.1 H Lymph % (Auto) 7.0 L [place] % (Auto) 7.6 Eos % (Auto) 0.0 Baso % (Auto) 0.3 Neut # (Auto) 10.2 H Lymph # (Auto) 0.8 L [place] # (Auto) 0.9 H Eos # (Auto) 0.0 Baso # (Auto) 0.0 Neutrophils % (Manual) 77 H Band Neutrophils % 6 H Lymphocytes % (Manual) 10 L Monocytes % (Manual) 7 Platelet Estimate Normal RBC Morphology Normal PT INR APTT Puncture Site pCO2 pO2 HCO3 ABG pH ABG Total CO2 ABG O2 Saturation ABG Base Excess Carl Test ABG Potassium VBG pH VBG pCO2 VBG HCO3 VBG Total CO2 VBG O2 Sat (Calc) VBG Base Excess VBG Potassium A-a O2 Difference Respiratory Index Sodium 143 Chloride 106 Glucose Lactate FiO2 Crit Value Called To Crit Value Called By Crit Value Read Back Blood Gas Notified Time Potassium 4.4 Carbon Dioxide 21 L Anion Gap 21 H BUN 32 H Creatinine 2.2 H Est GFR ( Amer) 36 Est GFR (Non-Af Amer) 29 POC Glucose (mg/dL) 206 H Random Glucose 255 H Lactic Acid Calcium 8.9 Magnesium Total Bilirubin AST ALT Alkaline Phosphatase Troponin I NT-Pro-B Natriuret Pep Total Protein Albumin Globulin Albumin/Globulin Ratio Procalcitonin TSH 3rd Generation Arterial Blood Potassium Venous Blood Potassium Urine Color Urine Clarity Urine pH Ur Specific [place] Urine Protein Urine Glucose (UA) Urine Ketones Urine Blood Urine Nitrate Urine Bilirubin Urine Urobilinogen Ur Leukocyte Esterase Urine WBC (Auto) Urine RBC (Auto) Ur Squamous Epith Cells Amorphous Sediment Urine Bacteria Hyaline Casts Influenza Typ A,B (EIA) Ur L.pneumophila Ag 01/27/18 01/27/18 01/27/18 14:15 14:39 16:27 WBC RBC Hgb Hct MCV MCH MCHC RDW Plt Count MPV Neut % (Auto) Lymph % (Auto) [place] % (Auto) Eos % (Auto) Baso % (Auto) Neut # (Auto) Lymph # (Auto) [place] # (Auto) Eos # (Auto) Baso # (Auto) Neutrophils % (Manual) Band Neutrophils % Lymphocytes % (Manual) Monocytes % (Manual) Platelet Estimate RBC Morphology PT INR APTT Puncture Site pCO2 pO2 HCO3 ABG pH ABG Total CO2 ABG O2 Saturation ABG Base Excess Carl Test ABG Potassium VBG pH VBG pCO2 VBG HCO3 VBG Total CO2 VBG O2 Sat (Calc) VBG Base Excess VBG Potassium A-a O2 Difference Respiratory Index Sodium Chloride Glucose Lactate FiO2 Crit Value Called To Crit Value Called By Crit Value Read Back Blood Gas Notified Time Potassium Carbon Dioxide Anion Gap BUN Creatinine Est GFR ( Amer) Est GFR (Non-Af Amer) POC Glucose (mg/dL) 126 H Random Glucose Lactic Acid Calcium Magnesium Total Bilirubin AST ALT Alkaline Phosphatase Troponin I NT-Pro-B Natriuret Pep Total Protein Albumin Globulin Albumin/Globulin Ratio Procalcitonin TSH 3rd Generation Arterial Blood Potassium Venous Blood Potassium Urine Color Yellow Urine Clarity Hazy Urine pH 5.0 Ur Specific [place] 1.018 Urine Protein 2+ H Urine Glucose (UA) 2+ H Urine Ketones Negative Urine Blood 3+ H Urine Nitrate Negative Urine Bilirubin Negative Urine Urobilinogen Normal Ur Leukocyte Esterase Neg Urine WBC (Auto) 16 H Urine RBC (Auto) 45 H Ur Squamous Epith Cells 1 Amorphous Sediment Rare H Urine Bacteria Rare Hyaline Casts 0-2 Influenza Typ A,B (EIA) Ur L.pneumophila Ag Negative 01/27/18 18:39 WBC RBC Hgb Hct MCV MCH MCHC RDW Plt Count MPV Neut % (Auto) Lymph % (Auto) [place] % (Auto) Eos % (Auto) Baso % (Auto) Neut # (Auto) Lymph # (Auto) [place] # (Auto) Eos # (Auto) Baso # (Auto) Neutrophils % (Manual) Band Neutrophils % Lymphocytes % (Manual) Monocytes % (Manual) Platelet Estimate RBC Morphology PT INR APTT Puncture Site pCO2 pO2 HCO3 ABG pH ABG Total CO2 ABG O2 Saturation ABG Base Excess Carl Test ABG Potassium VBG pH VBG pCO2 VBG HCO3 VBG Total CO2 VBG O2 Sat (Calc) VBG Base Excess VBG Potassium A-a O2 Difference Respiratory Index Sodium Chloride Glucose Lactate FiO2 Crit Value Called To Crit Value Called By Crit Value Read Back Blood Gas Notified Time Potassium Carbon Dioxide Anion Gap BUN Creatinine Est GFR ( Amer) Est GFR (Non-Af Amer) POC Glucose (mg/dL) Random Glucose Lactic Acid 1.1 Calcium Magnesium Total Bilirubin AST ALT Alkaline Phosphatase Troponin I NT-Pro-B Natriuret Pep Total Protein Albumin Globulin Albumin/Globulin Ratio Procalcitonin TSH 3rd Generation Arterial Blood Potassium Venous Blood Potassium Urine Color Urine Clarity Urine pH Ur Specific [place] Urine Protein Urine Glucose (UA) Urine Ketones Urine Blood Urine Nitrate Urine Bilirubin Urine Urobilinogen Ur Leukocyte Esterase Urine WBC (Auto) Urine RBC (Auto) Ur Squamous Epith Cells Amorphous Sediment Urine Bacteria Hyaline Casts Influenza Typ A,B (EIA) Ur L.pneumophila Ag
[2018-01-27] MEDS: (Lantus) Insulin Glargine, Recombinant SC SCH (22:52)
[2018-01-28] MEDS: Albuterol-Ipratrop 3 mg / 0.5 (3 ml) UD INH SCH ×4 (01:41→19:33)
[2018-01-28] MEDS: Acetylcysteine 20% Inhal Soln (4ml) INH SCH ×4 (01:41→19:34)
[2018-01-28] MEDS: Meropenem 500 MG in Sodium Chloride 0.9% 100 ML IVPB SCH ×3 (05:31→22:21)
--- NOTE | 2018-01-28 08:15 | US ---
Date of service: 01/27/2018 HISTORY: Acute renal insufficiency COMPARISON: None. TECHNIQUE: Sonographic evaluation of the retroperitoneum. FINDINGS: RIGHT KIDNEY:: Measures 10.3 x 4.4 x 4.8cm. Increased echogenicity. No calculus, mass, or hydronephrosis. LEFT KIDNEY:: Measures 9.8 x 4.6 x 4.5cm. Increased echogenicity. No calculus, mass, or hydronephrosis. AORTA:: No aneurysmal dilatation. Atherosclerotic calcification and plaque within the aorta. IVC:: Not well visualized. BLADDER:: Limited evaluation. Grossly preserved. OTHER FINDINGS: None . IMPRESSION: Increased echogenicity of the bilateral renal parenchymal cortices suggestive for medical renal disease. Clinical correlation. A preliminary report was generated at 10 p.m. on 01/27/[address] Sahil Lai from [employer].
[2018-01-28 08:17] LABS: BASO # 0.1 K/uL (0.0-0.2); BASO % 0.6 % (0.0-2.0); EOS # 0.1 K/uL (0.0-0.7); EOS % 1.5 % (0.0-4.0); HEMOGLOBIN 11.4 g/dL (12.0-18.0); LYMPH # 1.7 K/uL (1.0-4.3); LYMPH % 17.7 % (20.0-40.0); MEAN CELL VOLUME 79.1 fL (80.0-94.0); MEAN CORPUSCULAR HEMOGLOBIN 26.3 pg (27.0-31.0); MEAN CORPUSCULAR HGB CONC 33.3 g/dL (33.0-37.0); MEAN PLATELET VOLUME 9.2 fL (7.2-11.7); MONO # 0.8 K/uL (0.0-0.8); NEUT # 6.9 K/uL (1.8-7.0); NEUT % 72.2 % (50.0-75.0); RBC 4.31 Mil/uL (4.40-5.90); RED CELL DISTRIBUTION WIDTH 14.7 % (11.5-14.5); WHITE BLOOD COUNT 9.6 K/uL (4.8-10.8)
[2018-01-28] MEDS: (Novolin R) Insulin Human Regular 100 units/ml vial SC SCH ×4 (08:40→21:53)
[2018-01-28 08:46] LABS: ALB/GLOB RATIO 1.1 (1.0-2.1); ALBUMIN 3.4 g/dL (3.5-5.0); ALT/SGPT 65 U/L (21-72); AST/SGOT 63 U/L (17-59); BLOOD UREA NITROGEN 29 mg/dL (9-20); CALCIUM 9.1 mg/dl (8.6-10.4); GFR NON-AFRICAN AMERICAN 35
[2018-01-28 09:13] LABS: HEPATITIS B SURFACE AG Negative (NEGATIVE)
[2018-01-28] MEDS: Azithromycin 500 MG in Sodium Chloride 0.9% 250 ML IVPB SCH (09:31)
[2018-01-28] MEDS: Magnesium Hydroxide Susp 30 ml UD PO SCH ×3 (09:34→14:20)
--- NOTE | 2018-01-28 09:52 | CP.PCM.CON ---
<Adiel Foss - Last Filed: 01/28/18 12:43> History of Present Illness - History of Present Illness History of Present Illness: Nephrology Consult Note for Dr. Day Patient is a 72 yo M with PMH of CVA, dementia, DM2, HTN, HLD, CAD s/p CABG, and CHF was originally sent from senior living for fever, productive cough, and chest congestion. Patient was subsequently admitted for sepsis 2/2 pneumonia. Nephrology was consulted due to acute kidney injury. Patient appears to be confused at baseline and was not able to give further details regarding HPI. PMH: CVA, dementia, DM2, HTN, HLD, CAD s/p CABG, and CHF Surg: CABG, 2 stents All: NKDA SH: Denied FHx: Non-contributory Review of Systems - Review of Systems Systems not reviewed;Unavailable: Dementia All systems: reviewed and no additional remarkable complaints except (12 point ROS unobtainable due to patient's mental status.) Past Patient History - Infectious Disease Hx of Infectious Diseases: None - Past Medical History & Family History Past Medical History?: Yes - Past Social History Smoking Status: Never Smoked - CARDIAC Hx Cardiac Disorders: Yes Hx Hypercholesterolemia: Yes Hx Hypertension: Yes - PULMONARY Hx Chronic Obstructive Pulmonary Disease (COPD): No - NEUROLOGICAL HX Cerebrovascular Accident: Yes - HEENT Hx HEENT Problems: No - RENAL Hx Chronic Kidney Disease: No - ENDOCRINE/METABOLIC Hx Diabetes Mellitus Type 2: Yes - HEMATOLOGICAL/ONCOLOGICAL Hx Blood Disorders: No - INTEGUMENTARY Hx Dermatological Problems: No - MUSCULOSKELETAL/RHEUMATOLOGICAL Hx Arthritis: No Hx Falls: No Hx Rheumatoid Arthritis: No - GASTROINTESTINAL Hx Gastrointestinal Disorders: No - GENITOURINARY/GYNECOLOGICAL Hx Sexually Transmitted Disorders: Yes - PSYCHIATRIC Hx Depression: Yes (SINGLE EPISODE) Hx Substance Use: No - SURGICAL HISTORY Hx Coronary Artery Bypass Graft: Yes Hx Coronary Stent: Yes (x2) - ANESTHESIA Hx Anesthesia: Yes Hx Anesthesia Reactions: No Hx Malignant Hyperthermia: No Meds Allergies/Adverse Reactions: Allergies Allergy/AdvReac Type Severity Reaction Status Date / Time No Known Allergies Allergy Verified 01/26/18 22:04 - Medications Medications: Current Medications Acetaminophen (Tylenol 325mg Tab) 325 mg PO Q4 PRN PRN Reason: Pain, Mild (1-3) Acetylcysteine (Acetylcysteine 20%) 4 ml INH RQ6 [facility] Last Admin: 01/28/18 07:30 Dose: 4 ml Al Hydrox/Mg Hydrox/Simethicone (Maalox Plus 30 Ml) 30 ml PO Q4 PRN PRN Reason: GI distress Albuterol/Ipratropium (Duoneb 3 Mg/0.5 Mg (3 Ml) Ud) 3 ml INH RQ6 [facility] Last Admin: 01/28/18 07:30 Dose: 3 ml Glimepiride (Amaryl) 2 mg PO DAILY [facility] Last Admin: 01/28/18 09:31 Dose: 2 mg Heparin Sodium (Porcine) (Heparin) 5,000 units SC Q8 [facility] Last Admin: 01/28/18 05:31 Dose: 5,000 units Azithromycin 500 mg/ Sodium (Chloride) 250 mls @ 250 mls/hr IVPB DAILY [facility]; Protocol Last Admin: 01/28/18 09:31 Dose: 250 mls/hr Sodium Chloride (Sodium Chloride 0.9%) 1,000 mls @ 60 mls/hr IV .[id number] [facility] Last Admin: 01/27/18 14:47 Dose: Not Given Meropenem 500 mg/ Sodium (Chloride) 100 mls @ 200 mls/hr IVPB Q8H [facility]; Protocol Last Admin: 01/28/18 05:31 Dose: 200 mls/hr Vancomycin/Sodium Chloride (Vancomycin 1 Gm/Ns 200 Ml) 1 gm in 200 mls @ 133.333 mls/hr IVPB Q24H [facility]; Protocol Last Admin: 01/27/18 13:49 Dose: 133.333 mls/hr Influenza Virus Vaccine (Fluzone Quad [id number]) 60 mcg IM .ONCE ONE Stop: 01/28/18 10:01 Insulin Glargine (Lantus) 20 unit SC [facility] Last Admin: 01/27/18 22:52 Dose: 20 units Insulin Human Regular (Novolin R) 0 unit SC ACHS [facility]; Protocol Last Admin: 01/28/18 08:40 Dose: Not Given Magnesium Hydroxide (Milk Of Magnesia) 30 ml PO TID [facility] Last Admin: 01/28/18 09:34 Dose: 30 ml Metoprolol Tartrate (Lopressor) 25 mg PO BID [facility] Last Admin: 01/28/18 09:31 Dose: 25 mg Rosuvastatin Calcium (Crestor) 10 mg PO [facility] Last Admin: 01/27/18 22:55 Dose: 10 mg Physical Exam - Head Exam Head Exam: NORMAL INSPECTION - Eye Exam Eye Exam: Normal appearance - ENT Exam ENT Exam: Mucous Membranes Moist, Normal Exam - Respiratory Exam Respiratory Exam: Rhonchi. absent: Decreased Breath Sounds, Rales, Wheezes, Respiratory Distress - Cardiovascular Exam Cardiovascular Exam: RRR, +S1, +S2. absent: Diastolic murmur, Gallop, Rubs, Systolic Murmur - GI/Abdominal Exam GI & Abdominal Exam: Soft. absent: Distended, Guarding, Rebound, Tenderness - Extremities Exam Extremities exam: Positive for: normal inspection - Neurological Exam Neurological exam: Alert - Skin Skin Exam: Normal Color, Warm Results - Vital Signs Recent Vital Signs: Last Vital Signs Temp 98.0 F 01/28/18 07:10 Pulse 69 01/28/18 07:19 Resp 20 01/28/18 07:10 BP 115/70 01/28/18 09:31 Pulse Ox 98 01/28/18 07:10 - Labs Result Diagrams: 01/28/18 08:09 01/28/18 08:09 Labs: Laboratory Results - last 24 hr 01/26/18 01/27/18 01/27/18 22:09 06:46 10:21 WBC RBC Hgb Hct MCV MCH MCHC RDW Plt Count MPV Neut % (Auto) Lymph % (Auto) [place] % (Auto) Eos % (Auto) Baso % (Auto) Neut # (Auto) Lymph # (Auto) [place] # (Auto) Eos # (Auto) Baso # (Auto) Neutrophils % (Manual) Band Neutrophils % Lymphocytes % (Manual) Monocytes % (Manual) Platelet Estimate RBC Morphology Sodium Potassium Chloride Carbon Dioxide Anion Gap BUN Creatinine Est GFR ( Amer) Est GFR (Non-Af Amer) POC Glucose (mg/dL) 136 H 244 H Random Glucose Lactic Acid Calcium Phosphorus Magnesium Total Bilirubin AST ALT Alkaline Phosphatase Total Protein Albumin Globulin Albumin/Globulin Ratio 25-OH Vitamin D Total Procalcitonin 4.84 H Urine Color Urine Clarity Urine pH Ur Specific [place] Urine Protein Urine Glucose (UA) Urine Ketones Urine Blood Urine Nitrate Urine Bilirubin Urine Urobilinogen Ur Leukocyte Esterase Urine WBC (Auto) Urine RBC (Auto) Ur Squamous Epith Cells Amorphous Sediment Urine Bacteria Hyaline Casts Ur Random Sodium Random Vancomycin Complement C3 Complement C4 Hep Bs Antigen HIV 1&2 Antibody Screen Ur L.pneumophila Ag 01/27/18 01/27/18 01/27/18 10:21 10:21 12:15 WBC 11.9 H RBC 4.52 Hgb 11.7 L Hct 35.8 MCV 79.1 L MCH 25.8 L MCHC 32.6 L RDW 14.3 Plt Count 164 MPV 9.0 Neut % (Auto) 85.1 H Lymph % (Auto) 7.0 L [place] % (Auto) 7.6 Eos % (Auto) 0.0 Baso % (Auto) 0.3 Neut # (Auto) 10.2 H Lymph # (Auto) 0.8 L [place] # (Auto) 0.9 H Eos # (Auto) 0.0 Baso # (Auto) 0.0 Neutrophils % (Manual) 77 H Band Neutrophils % 6 H Lymphocytes % (Manual) 10 L Monocytes % (Manual) 7 Platelet Estimate Normal RBC Morphology Normal Sodium 143 Potassium 4.4 Chloride 106 Carbon Dioxide 21 L Anion Gap 21 H BUN 32 H Creatinine 2.2 H Est GFR ( Amer) 36 Est GFR (Non-Af Amer) 29 POC Glucose (mg/dL) 206 H Random Glucose 255 H Lactic Acid Calcium 8.9 Phosphorus Magnesium Total Bilirubin AST ALT Alkaline Phosphatase Total Protein Albumin Globulin Albumin/Globulin Ratio 25-OH Vitamin D Total Procalcitonin Urine Color Urine Clarity Urine pH Ur Specific [place] Urine Protein Urine Glucose (UA) Urine Ketones Urine Blood Urine Nitrate Urine Bilirubin Urine Urobilinogen Ur Leukocyte Esterase Urine WBC (Auto) Urine RBC (Auto) Ur Squamous Epith Cells Amorphous Sediment Urine Bacteria Hyaline Casts Ur Random Sodium Random Vancomycin Complement C3 Complement C4 Hep Bs Antigen HIV 1&2 Antibody Screen Ur L.pneumophila Ag 01/27/18 01/27/18 01/27/18 14:15 14:39 16:27 WBC RBC Hgb Hct MCV MCH MCHC RDW Plt Count MPV Neut % (Auto) Lymph % (Auto) [place] % (Auto) Eos % (Auto) Baso % (Auto) Neut # (Auto) Lymph # (Auto) [place] # (Auto) Eos # (Auto) Baso # (Auto) Neutrophils % (Manual) Band Neutrophils % Lymphocytes % (Manual) Monocytes % (Manual) Platelet Estimate RBC Morphology Sodium Potassium Chloride Carbon Dioxide Anion Gap BUN Creatinine Est GFR ( Amer) Est GFR (Non-Af Amer) POC Glucose (mg/dL) 126 H Random Glucose Lactic Acid Calcium Phosphorus Magnesium Total Bilirubin AST ALT Alkaline Phosphatase Total Protein Albumin Globulin Albumin/Globulin Ratio 25-OH Vitamin D Total Procalcitonin Urine Color Yellow Urine Clarity Hazy Urine pH 5.0 Ur Specific [place] 1.018 Urine Protein 2+ H Urine Glucose (UA) 2+ H Urine Ketones Negative Urine Blood 3+ H Urine Nitrate Negative Urine Bilirubin Negative Urine Urobilinogen Normal Ur Leukocyte Esterase Neg Urine WBC (Auto) 16 H Urine RBC (Auto) 45 H Ur Squamous Epith Cells 1 Amorphous Sediment Rare H Urine Bacteria Rare Hyaline Casts 0-2 Ur Random Sodium Random Vancomycin Complement C3 Complement C4 Hep Bs Antigen HIV 1&2 Antibody Screen Ur L.pneumophila Ag Negative 01/27/18 01/27/18 01/27/18 18:39 21:00 22:45 WBC RBC Hgb Hct MCV MCH MCHC RDW Plt Count MPV Neut % (Auto) Lymph % (Auto) [place] % (Auto) Eos % (Auto) Baso % (Auto) Neut # (Auto) Lymph # (Auto) [place] # (Auto) Eos # (Auto) Baso # (Auto) Neutrophils % (Manual) Band Neutrophils % Lymphocytes % (Manual) Monocytes % (Manual) Platelet Estimate RBC Morphology Sodium Potassium Chloride Carbon Dioxide Anion Gap BUN Creatinine Est GFR ( Amer) Est GFR (Non-Af Amer) POC Glucose (mg/dL) 207 H Random Glucose Lactic Acid 1.1 Calcium Phosphorus Magnesium Total Bilirubin AST ALT Alkaline Phosphatase Total Protein Albumin Globulin Albumin/Globulin Ratio 25-OH Vitamin D Total Procalcitonin Urine Color Urine Clarity Urine pH Ur Specific [place] Urine Protein Urine Glucose (UA) Urine Ketones Urine Blood Urine Nitrate Urine Bilirubin Urine Urobilinogen Ur Leukocyte Esterase Urine WBC (Auto) Urine RBC (Auto) Ur Squamous Epith Cells Amorphous Sediment Urine Bacteria Hyaline Casts Ur Random Sodium 60 Random Vancomycin Complement C3 Complement C4 Hep Bs Antigen HIV 1&2 Antibody Screen Ur L.pneumophila Ag 01/28/18 01/28/18 01/28/18 08:09 08:09 08:09 WBC 9.6 RBC 4.31 L Hgb 11.4 L Hct 34.1 L MCV 79.1 L MCH 26.3 L MCHC 33.3 RDW 14.7 H Plt Count 163 MPV 9.2 Neut % (Auto) 72.2 Lymph % (Auto) 17.7 L [place] % (Auto) 8.0 Eos % (Auto) 1.5 Baso % (Auto) 0.6 Neut # (Auto) 6.9 Lymph # (Auto) 1.7 [place] # (Auto) 0.8 Eos # (Auto) 0.1 Baso # (Auto) 0.1 Neutrophils % (Manual) Band Neutrophils % Lymphocytes % (Manual) Monocytes % (Manual) Platelet Estimate RBC Morphology Sodium 145 Potassium 4.1 Chloride 111 H Carbon Dioxide 26 Anion Gap 12 BUN 29 H Creatinine 1.9 H Est GFR ( Amer) 42 Est GFR (Non-Af Amer) 35 POC Glucose (mg/dL) Random Glucose 116 H Lactic Acid Calcium 9.1 Phosphorus 2.2 L Magnesium 2.2 Total Bilirubin 0.4 AST 63 H D ALT 65 Alkaline Phosphatase 85 Total Protein 6.5 Albumin 3.4 L D Globulin 3.1 Albumin/Globulin Ratio 1.1 25-OH Vitamin D Total Procalcitonin Urine Color Urine Clarity Urine pH Ur Specific [place] Urine Protein Urine Glucose (UA) Urine Ketones Urine Blood Urine Nitrate Urine Bilirubin Urine Urobilinogen Ur Leukocyte Esterase Urine WBC (Auto) Urine RBC (Auto) Ur Squamous Epith Cells Amorphous Sediment Urine Bacteria Hyaline Casts Ur Random Sodium Random Vancomycin 11.1 Complement C3 Complement C4 Hep Bs Antigen Negative HIV 1&2 Antibody Screen Ur L.pneumophila Ag 01/28/18 01/28/18 01/28/18 08:09 08:09 08:09 WBC RBC Hgb Hct MCV MCH MCHC RDW Plt Count MPV Neut % (Auto) Lymph % (Auto) [place] % (Auto) Eos % (Auto) Baso % (Auto) Neut # (Auto) Lymph # (Auto) [place] # (Auto) Eos # (Auto) Baso # (Auto) Neutrophils % (Manual) Band Neutrophils % Lymphocytes % (Manual) Monocytes % (Manual) Platelet Estimate RBC Morphology Sodium Potassium Chloride Carbon Dioxide Anion Gap BUN Creatinine Est GFR ( Amer) Est GFR (Non-Af Amer) POC Glucose (mg/dL) Random Glucose Lactic Acid Calcium Phosphorus Magnesium Total Bilirubin AST ALT Alkaline Phosphatase Total Protein Albumin Globulin Albumin/Globulin Ratio 25-OH Vitamin D Total 34.4 Procalcitonin Urine Color Urine Clarity Urine pH Ur Specific [place] Urine Protein Urine Glucose (UA) Urine Ketones Urine Blood Urine Nitrate Urine Bilirubin Urine Urobilinogen Ur Leukocyte Esterase Urine WBC (Auto) Urine RBC (Auto) Ur Squamous Epith Cells Amorphous Sediment Urine Bacteria Hyaline Casts Ur Random Sodium Random Vancomycin Complement C3 94.0 Complement C4 54.0 H Hep Bs Antigen HIV 1&2 Antibody Screen Negative Ur L.pneumophila Ag Assessment & Plan - Assessment and Plan (Free Text) Assessment: 72 yo M with PMH of CVA, dementia, DM2, HTN, HLD, CAD s/p CABG, and CHF was originally sent from senior living for fever, productive cough, and chest congestion. Patient was subsequently admitted for sepsis 2/2 pneumonia. Nephrology was consulted due to acute kidney injury. Plan: 1. VICTORINO - Likely 2/2 ATN in setting of sepsis - Renal US shows increased echogenicity of b/l renal parenchymal cortices suggestive of medical renal disease - UA shows proteinuria and hematuria - Past consistent proteinuria on past UA's is likely due to DM, however, will need to rule out other causes - F/u HIV, vitamin D, Hep B and C, BRENDA, ANCA, IF, light chains, PTH, SPEP, microalbumin, protein/cr ratio - A1c ordered - Cont NS at 60 - Avoid nephrotoxic agents 2. Sepsis 2/2 PNA - Febrile on admission, afebrile over last 24 hrs - Leukocytosis, elevated procal, lactate 8 on admission - CXR negative - Blood cultures positive for gram positive cocci - Abx per ID, can increase dose as renal function improves Patient seen and discussed in detail with Dr. Day. Rafael Foss DO PGY2 <Pavel Day - Last Filed: 01/28/18 15:29> Meds - Medications Medications: Current Medications Acetaminophen (Tylenol 325mg Tab) 325 mg PO Q4 PRN PRN Reason: Pain, Mild (1-3) Acetylcysteine (Acetylcysteine 20%) 4 ml INH RQ6 [facility] Last Admin: 01/28/18 13:40 Dose: 4 ml Al Hydrox/Mg Hydrox/Simethicone (Maalox Plus 30 Ml) 30 ml PO Q4 PRN PRN Reason: GI distress Albuterol/Ipratropium (Duoneb 3 Mg/0.5 Mg (3 Ml) Ud) 3 ml INH RQ6 [facility] Last Admin: 01/28/18 13:40 Dose: 3 ml Glimepiride (Amaryl) 2 mg PO DAILY [facility] Last Admin: 01/28/18 09:31 Dose: 2 mg Heparin Sodium (Porcine) (Heparin) 5,000 units SC Q8 [facility] Last Admin: 01/28/18 14:10 Dose: 5,000 units Azithromycin 500 mg/ Sodium (Chloride) 250 mls @ 250 mls/hr IVPB DAILY [facility]; Protocol Last Admin: 01/28/18 09:31 Dose: 250 mls/hr Sodium Chloride (Sodium Chloride 0.9%) 1,000 mls @ 60 mls/hr IV .[id number] [facility] Last Admin: 01/28/18 14:11 Dose: 60 mls/hr Meropenem 500 mg/ Sodium (Chloride) 100 mls @ 200 mls/hr IVPB Q8H [facility]; Protocol Last Admin: 01/28/18 05:31 Dose: 200 mls/hr Vancomycin/Sodium Chloride (Vancomycin 1 Gm/Ns 200 Ml) 1 gm in 200 mls @ 133.333 mls/hr IVPB Q24H [facility]; Protocol Last Admin: 01/28/18 14:08 Dose: 133.333 mls/hr Insulin Glargine (Lantus) 20 unit SC [facility] Last Admin: 01/27/18 22:52 Dose: 20 units Insulin Human Regular (Novolin R) 0 unit SC ACHS [facility]; Protocol Last Admin: 01/28/18 13:00 Dose: 2 unit Magnesium Hydroxide (Milk Of Magnesia) 30 ml PO TID [facility] Last Admin: 01/28/18 14:20 Dose: Not Given Metoprolol Tartrate (Lopressor) 25 mg PO BID [facility] Last Admin: 01/28/18 09:31 Dose: 25 mg Rosuvastatin Calcium (Crestor) 10 mg PO HS [facility] Last Admin: 01/27/18 22:55 Dose: 10 mg Results - Vital Signs Recent Vital Signs: Last Vital Signs Temp 98.0 F 01/28/18 07:10 Pulse 73 01/28/18 12:16 Resp 20 01/28/18 07:10 BP 115/70 01/28/18 09:31 Pulse Ox 98 01/28/18 07:10 - Labs Result Diagrams: 01/28/18 08:09 01/28/18 08:09 Labs: Laboratory Results - last 24 hr 01/27/18 01/27/18 01/27/18 10:21 14:39 16:27 WBC RBC Hgb Hct MCV MCH MCHC RDW Plt Count MPV Neut % (Auto) Lymph % (Auto) [place] % (Auto) Eos % (Auto) Baso % (Auto) Neut # (Auto) Lymph # (Auto) [place] # (Auto) Eos # (Auto) Baso # (Auto) Sodium Potassium Chloride Carbon Dioxide Anion Gap BUN Creatinine Est GFR ( Amer) Est GFR (Non-Af Amer) POC Glucose (mg/dL) 126 H Random Glucose Lactic Acid Calcium Phosphorus Magnesium Total Bilirubin AST ALT Alkaline Phosphatase Total Protein Albumin Globulin Albumin/Globulin Ratio 25-OH Vitamin D Total Procalcitonin 4.84 H Ur Random Sodium Random Vancomycin Complement C3 Complement C4 Hep Bs Antigen HIV 1&2 Antibody Screen Ur L.pneumophila Ag Negative 01/27/18 01/27/18 01/27/18 18:39 21:00 22:45 WBC RBC Hgb Hct MCV MCH MCHC RDW Plt Count MPV Neut % (Auto) Lymph % (Auto) [place] % (Auto) Eos % (Auto) Baso % (Auto) Neut # (Auto) Lymph # (Auto) [place] # (Auto) Eos # (Auto) Baso # (Auto) Sodium Potassium Chloride Carbon Dioxide Anion Gap BUN Creatinine Est GFR ( Amer) Est GFR (Non-Af Amer) POC Glucose (mg/dL) 207 H Random Glucose Lactic Acid 1.1 Calcium Phosphorus Magnesium Total Bilirubin AST ALT Alkaline Phosphatase Total Protein Albumin Globulin Albumin/Globulin Ratio 25-OH Vitamin D Total Procalcitonin Ur Random Sodium 60 Random Vancomycin Complement C3 Complement C4 Hep Bs Antigen HIV 1&2 Antibody Screen Ur L.pneumophila Ag 01/28/18 01/28/18 01/28/18 08:09 08:09 08:09 WBC 9.6 RBC 4.31 L Hgb 11.4 L Hct 34.1 L MCV 79.1 L MCH 26.3 L MCHC 33.3 RDW 14.7 H Plt Count 163 MPV 9.2 Neut % (Auto) 72.2 Lymph % (Auto) 17.7 L [place] % (Auto) 8.0 Eos % (Auto) 1.5 Baso % (Auto) 0.6 Neut # (Auto) 6.9 Lymph # (Auto) 1.7 [place] # (Auto) 0.8 Eos # (Auto) 0.1 Baso # (Auto) 0.1 Sodium 145 Potassium 4.1 Chloride 111 H Carbon Dioxide 26 Anion Gap 12 BUN 29 H Creatinine 1.9 H Est GFR ( Amer) 42 Est GFR (Non-Af Amer) 35 POC Glucose (mg/dL) Random Glucose 116 H Lactic Acid Calcium 9.1 Phosphorus 2.2 L Magnesium 2.2 Total Bilirubin 0.4 AST 63 H D ALT 65 Alkaline Phosphatase 85 Total Protein 6.5 Albumin 3.4 L D Globulin 3.1 Albumin/Globulin Ratio 1.1 25-OH Vitamin D Total Procalcitonin Ur Random Sodium Random Vancomycin 11.1 Complement C3 Complement C4 Hep Bs Antigen Negative HIV 1&2 Antibody Screen Ur L.pneumophila Ag 01/28/18 01/28/18 01/28/18 08:09 08:09 08:09 WBC RBC Hgb Hct MCV MCH MCHC RDW Plt Count MPV Neut % (Auto) Lymph % (Auto) [place] % (Auto) Eos % (Auto) Baso % (Auto) Neut # (Auto) Lymph # (Auto) [place] # (Auto) Eos # (Auto) Baso # (Auto) Sodium Potassium Chloride Carbon Dioxide Anion Gap BUN Creatinine Est GFR ( Amer) Est GFR (Non-Af Amer) POC Glucose (mg/dL) Random Glucose Lactic Acid Calcium Phosphorus Magnesium Total Bilirubin AST ALT Alkaline Phosphatase Total Protein Albumin Globulin Albumin/Globulin Ratio 25-OH Vitamin D Total 34.4 Procalcitonin Ur Random Sodium Random Vancomycin Complement C3 94.0 Complement C4 54.0 H Hep Bs Antigen HIV 1&2 Antibody Screen Negative Ur L.pneumophila Ag 01/28/18 11:30 WBC RBC Hgb Hct MCV MCH MCHC RDW Plt Count MPV Neut % (Auto) Lymph % (Auto) [place] % (Auto) Eos % (Auto) Baso % (Auto) Neut # (Auto) Lymph # (Auto) [place] # (Auto) Eos # (Auto) Baso # (Auto) Sodium Potassium Chloride Carbon Dioxide Anion Gap BUN Creatinine Est GFR ( Amer) Est GFR (Non-Af Amer) POC Glucose (mg/dL) 249 H Random Glucose Lactic Acid Calcium Phosphorus Magnesium Total Bilirubin AST ALT Alkaline Phosphatase Total Protein Albumin Globulin Albumin/Globulin Ratio 25-OH Vitamin D Total Procalcitonin Ur Random Sodium Random Vancomycin Complement C3 Complement C4 Hep Bs Antigen HIV 1&2 Antibody Screen Ur L.pneumophila Ag Attending/Attestation - Attestation I have personally seen and examined this patient.: Yes I have fully participated in the care of the patient.: Yes I have reviewed all pertinent clinical information: Yes Notes (Text): Patient seen and examined; I agree with the resident's note as above with the following additions/edits: 72 yo M w/ pmh of DM2, HTN, hyperlipidemia, CVA, dementia, CAD s/p CABG, CKD III and possible diastolic CHF, sent from [place] due to fever, cough and chest congestion, nephrology being consulted for VICTORINO; History from patient limited/unreliable due to dementia; had high fever upon presentation, up to 102.9, and very high lactate level; patient was given IVF and IV antibiotics with subsequent resolution of fever and lactic acidosis; blood cultures now growing gram positive cocci in 2 bottles; Renal US images reviewed; no hydronephrosis; however, may have some urinary retention with decreased urine output from [place] reported this morning and bl adder scan showing 400 cc; No hypotension noted but given clinical presentation, VICTORINO likely due to ATN from sepsis; renal function now improving; stable volume and electrolyte status; currently getting vancomycin 1 g q24h (random level non-toxic this morning) and meropenem; Patient also with underlying proteinuric kidney disease, likely due to DM, but getting serologic workup to r/o other possible causes; HTN currently controlled, on metoprolol only, agree with continuing the same; Previous echo indicative of possible diastolic dysfunction; has some rales on exam but with stable respiratory status; -Agree with continuing gentle IVF w/ NS at 60 cc/hr; need to monitor resp status closely given VICTORINO; -Obtain vanco trough level tomorrow to avoid toxicity; may need to increase antibiotic dosing with improving renal function; -Placing auguste catheter; will start flomax empirically; -Will f/u CKD workup; -Avoid nephrotoxic agents (phosphate enema, NSAIDS, etc); Thank you for this referral, we will be following closely. 01/28/18 15:20
[2018-01-28] MEDS ORDERED: Pneumococcal 23-Valent Vaccine IM ONE (10:00)
[2018-01-28] MEDS ORDERED: Influenza Vaccine 60 MCG/0.5 ML SYR (3 yr & up) IM ONE (10:00)
--- NOTE | 2018-01-28 10:39 | HP ---
CHIEF COMPLAINT: Cough, fever x2. HISTORY OF PRESENT ILLNESS: This is an elderly 72-year-old alf resident. He has history of Alzheimer's, prior cerebrovascular accident, type 2 diabetes, hypertension, hyperlipidemia. He has coronary artery disease, status post two stents, and then later on, he underwent CABG. He was brought into emergency room from alf because of cough, congestion, shortness of breath, fever, chills, rigors, generalized weakness, drowsiness, inability to participate with activities of daily living. The patient was evaluated, and he is hospitalized. He has cough. He has thick yellow sputum production. He denies any dysuria, hematuria, pyuria. He denies any sneezing, itchy eyes, itchy nose. PAST MEDICAL HISTORY: Type 2 diabetes, CKD, hypertension, Alzheimer's, coronary artery disease, stents and CABG, UNKNOWN ALLERGIES. He has congestive heart failure. SOCIAL HISTORY: Ex-smoker, non-ETOH user. . CURRENT MEDICATIONS: At alf are Tylenol, milk of magnesia, Lantus, Amaryl, Novolin R, Lopressor, Glucophage, Crestor, Carafate, and Tylenol. PHYSICAL EXAMINATION: GENERAL: An elderly male, in minimal distress, drowsy. VITAL SIGNS: Blood pressure 133/72, pulse 88, respiratory rate 20, temperature 99.2. SKIN: No rashes. No bruises. No purpura. HEENT: Atraumatic and normocephalic. Negative pallor. Negative jaundice. Extraocular movements are intact. NECK: Supple. No JVD. No lymph node. No thyromegaly. No carotid bruits. CHEST WALL: Bilateral symmetrical expansion. LUNGS: Clear. No rales. No rhonchi. CARDIOVASCULAR SYSTEM: S1, S2, regular. S3 positive. ABDOMEN: Soft, nontender. Bowel sounds are positive. RECTAL: Enlarged prostate. EXTREMITIES: No clubbing, cyanosis, or edema. SUPPORT SERVICES COORDINATOR: The patient is alert. The patient is not oriented to time and place. ASSESSMENT: 1. Urinary tract infection, rule out septicemia, rule out pyelonephritis. 2. Tracheobronchitis, rule out pneumonia. 3. Alzheimer's. 4. Hypertension. 5. Chronic kidney disease. 6. Type 2 diabetes. PLAN: Admit. Detailed orders written. Seen and examined. Nasir Puentes MD [facility] # [id number]
--- NOTE | 2018-01-28 12:51 | CP.PCM.PN ---
Subjective - Date & Time of Evaluation Date of Evaluation: 01/28/18 Time of Evaluation: 08:00 - Subjective Subjective: events noted congested still 't max lower Objective - Vital Signs/Intake and Output Vital Signs (last 24 hours): Temp Pulse Resp BP Pulse Ox 98.0 F 69 20 115/70 98 01/28/18 07:10 01/28/18 07:19 01/28/18 07:10 01/28/18 09:31 01/28/18 07:10 Intake and Output: 01/28/18 01/28/18 06:59 18:59 Intake Total 250 Output Total 750 Balance -500 - Medications Medications: Current Medications Acetaminophen (Tylenol 325mg Tab) 325 mg PO Q4 PRN PRN Reason: Pain, Mild (1-3) Acetylcysteine (Acetylcysteine 20%) 4 ml INH RQ6 [facility] Last Admin: 01/28/18 07:30 Dose: 4 ml Al Hydrox/Mg Hydrox/Simethicone (Maalox Plus 30 Ml) 30 ml PO Q4 PRN PRN Reason: GI distress Albuterol/Ipratropium (Duoneb 3 Mg/0.5 Mg (3 Ml) Ud) 3 ml INH RQ6 [facility] Last Admin: 01/28/18 07:30 Dose: 3 ml Glimepiride (Amaryl) 2 mg PO DAILY [facility] Last Admin: 01/28/18 09:31 Dose: 2 mg Heparin Sodium (Porcine) (Heparin) 5,000 units SC Q8 [facility] Last Admin: 01/28/18 05:31 Dose: 5,000 units Azithromycin 500 mg/ Sodium (Chloride) 250 mls @ 250 mls/hr IVPB DAILY [facility]; Protocol Last Admin: 01/28/18 09:31 Dose: 250 mls/hr Sodium Chloride (Sodium Chloride 0.9%) 1,000 mls @ 60 mls/hr IV .[id number] [facility] Last Admin: 01/27/18 14:47 Dose: Not Given Meropenem 500 mg/ Sodium (Chloride) 100 mls @ 200 mls/hr IVPB Q8H [facility]; Protocol Last Admin: 01/28/18 05:31 Dose: 200 mls/hr Vancomycin/Sodium Chloride (Vancomycin 1 Gm/Ns 200 Ml) 1 gm in 200 mls @ 133.333 mls/hr IVPB Q24H [facility]; Protocol Last Admin: 10/29/18 13:49 Dose: 133.333 mls/hr Vancomycin/Sodium Chloride (Vancomycin 1 Gm/Ns 200 Ml) 1 gm in 200 mls @ 133.333 mls/hr IVPB Q24H [facility]; Protocol Stop: 02/02/18 13:01 Insulin Glargine (Lantus) 20 unit SC HS [facility] Last Admin: 01/27/18 22:52 Dose: 20 units Insulin Human Regular (Novolin R) 0 unit SC [facility]; Protocol Last Admin: 01/28/18 08:40 Dose: Not Given Magnesium Hydroxide (Milk Of Magnesia) 30 ml PO TID [facility] Last Admin: 01/28/18 09:34 Dose: 30 ml Metoprolol Tartrate (Lopressor) 25 mg PO BID [facility] Last Admin: 01/28/18 09:31 Dose: 25 mg Rosuvastatin Calcium (Crestor) 10 mg PO HS [facility] Last Admin: 01/27/18 22:55 Dose: 10 mg - Labs Labs: 01/28/18 08:09 01/28/18 08:09 PT 17.4 SECONDS (9.7-12.2) H 01/26/18 22:40 INR 1.6 01/26/18 22:40 APTT 32 SECONDS (21-34) 01/26/18 22:40 - Constitutional Appears: Chronically Ill - Head Exam Head Exam: NORMOCEPHALIC - Eye Exam Eye Exam: PERRL - ENT Exam ENT Exam: Mucous Membranes Dry - Respiratory Exam Respiratory Exam: Decreased Breath Sounds, Prolonged Expiratory Phase - Cardiovascular Exam Cardiovascular Exam: REGULAR RHYTHM - GI/Abdominal Exam GI & Abdominal Exam: Distended, Soft - Rectal Exam Rectal Exam: Deferred - Exam Exam: NORMAL INSPECTION - Extremities Exam Extremities Exam: Full ROM - Neurological Exam Neurological Exam: Alert, Awake Assessment and Plan (1) Dehydration Status: Acute (2) Fever Status: Acute (3) Pneumonia Status: Acute
[2018-01-28] MEDS ORDERED: Vancomycin 1 gm/NS 200 ml 1 GM/200 ML BAG IVPB SCH (13:00)
[2018-01-28] MEDS: Vancomycin 1 gm/NS 200 ml 1 GM/200 ML BAG IVPB SCH (14:08)
[2018-01-28] MEDS: Sodium Chloride 0.9% 1,000 ML IV SCH ×2 (14:11→17:25)
--- NOTE | 2018-01-28 16:55 | CP.PCM.PN ---
Subjective - Date & Time of Evaluation Date of Evaluation: 01/28/18 Time of Evaluation: 14:35 - Subjective Subjective: Patient seen and examined at bedside. Patient eating breakfast and resting comfortably in bed during the exam. Patient states that his shortness of breath has improved greatly since yesterday, as well as his cough. Admits to some chills. Patient denies any fevers, headaches, or sputum production. Blood cultures 01/26 - positive for staph aureus & coagulase-negative staph CXR 01/26 - No acute findings. Objective - Vital Signs/Intake and Output Vital Signs (last 24 hours): Temp Pulse Resp BP Pulse Ox 98.6 F 72 20 124/63 100 01/28/18 15:59 01/28/18 15:59 01/28/18 15:59 01/28/18 15:59 01/28/18 15:59 Intake and Output: 01/28/18 01/28/18 06:59 18:59 Intake Total 250 710 Output Total 750 425 Balance -500 285 - Medications Medications: Current Medications Acetaminophen (Tylenol 325mg Tab) 325 mg PO Q4 PRN PRN Reason: Pain, Mild (1-3) Acetylcysteine (Acetylcysteine 20%) 4 ml INH RQ6 [facility] Last Admin: 01/28/18 13:40 Dose: 4 ml Al Hydrox/Mg Hydrox/Simethicone (Maalox Plus 30 Ml) 30 ml PO Q4 PRN PRN Reason: GI distress Albuterol/Ipratropium (Duoneb 3 Mg/0.5 Mg (3 Ml) Ud) 3 ml INH RQ6 [facility] Last Admin: 01/28/18 13:40 Dose: 3 ml Glimepiride (Amaryl) 2 mg PO DAILY [facility] Last Admin: 01/28/18 09:31 Dose: 2 mg Heparin Sodium (Porcine) (Heparin) 5,000 units SC Q8 [facility] Last Admin: 01/28/18 14:10 Dose: 5,000 units Azithromycin 500 mg/ Sodium (Chloride) 250 mls @ 250 mls/hr IVPB DAILY [facility]; Protocol Last Admin: 01/28/18 09:31 Dose: 250 mls/hr Sodium Chloride (Sodium Chloride 0.9%) 1,000 mls @ 60 mls/hr IV .[id number] [facility] Last Admin: 01/28/18 14:11 Dose: 60 mls/hr Meropenem 500 mg/ Sodium (Chloride) 100 mls @ 200 mls/hr IVPB Q8H [facility]; Protocol Last Admin: 01/28/18 16:17 Dose: 200 mls/hr Vancomycin/Sodium Chloride (Vancomycin 1 Gm/Ns 200 Ml) 1 gm in 200 mls @ 133.333 mls/hr IVPB Q24H [facility]; Protocol Last Admin: 01/28/18 14:08 Dose: 133.333 mls/hr Insulin Glargine (Lantus) 20 unit SC HS [facility] Last Admin: 01/27/18 22:52 Dose: 20 units Insulin Human Regular (Novolin R) 0 unit SC ACHS [facility]; Protocol Last Admin: 01/28/18 13:00 Dose: 2 unit Magnesium Hydroxide (Milk Of Magnesia) 30 ml PO TID [facility] Last Admin: 01/28/18 14:20 Dose: Not Given Metoprolol Tartrate (Lopressor) 25 mg PO BID [facility] Last Admin: 01/28/18 09:31 Dose: 25 mg Rosuvastatin Calcium (Crestor) 10 mg PO HS [facility] Last Admin: 01/27/18 22:55 Dose: 10 mg Tamsulosin HCl (Flomax) 0.4 mg PO DAILY [facility] Last Admin: 01/28/18 16:18 Dose: 0.4 mg - Labs Labs: 01/28/18 08:09 01/28/18 08:09 PT 17.4 SECONDS (9.7-12.2) H 01/26/18 22:40 INR 1.6 01/26/18 22:40 APTT 32 SECONDS (21-34) 01/26/18 22:40 Assessment and Plan (1) Pneumonia Status: Acute
[2018-01-28] MEDS: (Lantus) Insulin Glargine, Recombinant SC SCH (22:21)
--- NOTE | 2018-01-28 22:35 | CP.PCM.PN ---
Subjective - Subjective Subjective: dictated Objective - Vital Signs/Intake and Output Vital Signs (last 24 hours): Temp Pulse Resp BP Pulse Ox 99 F 74 20 112/63 99 01/28/18 21:54 01/28/18 21:54 01/28/18 21:54 01/28/18 21:54 01/28/18 21:54 Intake and Output: 01/28/18 01/29/18 18:59 06:59 Intake Total 710 Output Total 425 200 Balance 285 -200 - Medications Medications: Current Medications Acetaminophen (Tylenol 325mg Tab) 325 mg PO Q4 PRN PRN Reason: Pain, Mild (1-3) Acetylcysteine (Acetylcysteine 20%) 4 ml INH RQ6 [facility] Last Admin: 01/28/18 19:34 Dose: 4 ml Al Hydrox/Mg Hydrox/Simethicone (Maalox Plus 30 Ml) 30 ml PO Q4 PRN PRN Reason: GI distress Albuterol/Ipratropium (Duoneb 3 Mg/0.5 Mg (3 Ml) Ud) 3 ml INH RQ6 [facility] Last Admin: 01/28/18 19:33 Dose: 3 ml Glimepiride (Amaryl) 2 mg PO DAILY [facility] Last Admin: 01/28/18 09:31 Dose: 2 mg Heparin Sodium (Porcine) (Heparin) 5,000 units SC Q8 [facility] Last Admin: 01/28/18 22:21 Dose: 5,000 units Azithromycin 500 mg/ Sodium (Chloride) 250 mls @ 250 mls/hr IVPB DAILY [facility]; Protocol Last Admin: 01/28/18 09:31 Dose: 250 mls/hr Sodium Chloride (Sodium Chloride 0.9%) 1,000 mls @ 60 mls/hr IV .[id number] [facility] Last Admin: 01/28/18 17:25 Dose: 60 mls/hr Meropenem 500 mg/ Sodium (Chloride) 100 mls @ 200 mls/hr IVPB Q8H [facility]; Protocol Last Admin: 01/28/18 22:21 Dose: 200 mls/hr Vancomycin/Sodium Chloride (Vancomycin 1 Gm/Ns 200 Ml) 1 gm in 200 mls @ 133.333 mls/hr IVPB Q24H [facility]; Protocol Last Admin: 01/28/18 14:08 Dose: 133.333 mls/hr Insulin Glargine (Lantus) 20 unit SC [facility] Last Admin: 01/28/18 22:21 Dose: 20 units Insulin Human Regular (Novolin R) 0 unit SC [facility]; Protocol Last Admin: 01/28/18 21:53 Dose: Not Given Magnesium Hydroxide (Milk Of Magnesia) 30 ml PO TID [facility] Last Admin: 01/28/18 14:20 Dose: Not Given Metoprolol Tartrate (Lopressor) 25 mg PO BID [facility] Last Admin: 01/28/18 17:24 Dose: 25 mg Rosuvastatin Calcium (Crestor) 10 mg PO [facility] Last Admin: 01/28/18 22:20 Dose: 10 mg Tamsulosin HCl (Flomax) 0.4 mg PO DAILY [facility] Last Admin: 01/28/18 16:18 Dose: 0.4 mg - Labs Labs: 01/28/18 08:09 01/28/18 08:09 PT 17.4 SECONDS (9.7-12.2) H 01/26/18 22:40 INR 1.6 01/26/18 22:40 APTT 32 SECONDS (21-34) 01/26/18 22:40
--- NOTE | 2018-01-28 22:46 | PQF ---
PROVIDER RESPONSE TEXT: Uti without septicemia Diastolic hear failure chronic REVIEWER QUERY TEXT: CHF Acuity and Type Congestive Heart Failure is documented in the Medical Record. Please document the type and acuity (in cludes probable or suspected) Such as: Type: -- Systolic -- Diastolic -- Combined -- Other, please specify Acuity: -- Acute -- Chronic -- Acute on chronic -- Other, please specify Also please document the underlying cause of the CHF (includes probable or suspected) The patient's Clinical Indicators include: Patient is a 72 yo M with PMH of CVA, dementia, DM2, HTN, HLD, CAD s/p CABG, and CHF came from [facility] for fever, productive cough, and chest congestion. Admitted with Dx of Sepsis secondary to pneumonia, VICTORINO, DM2, DHN and CHF. Pt. with pedal edema Echo 08/01/15: Left ventricle systolic function is normal, EF is >70% PBNP- 1490 CXR: Cardiomegaly,Infiltrate RLL Tx: Lopressor 25 mg PO BID, Lab monitoring, Per ER: " decrease amount of fluid due to CHF". Query created by: Richelle Domínguez on 01/28/2018 2:07 PM Electronically signed by: Nasir Puentes MD 01/28/2018 10:42 PM
[2018-01-29] MEDS: Acetylcysteine 20% Inhal Soln (4ml) INH SCH ×4 (01:16→19:37)
[2018-01-29] MEDS: Albuterol-Ipratrop 3 mg / 0.5 (3 ml) UD INH SCH ×4 (01:16→19:37)
--- NOTE | 2018-01-29 03:21 | PN ---
DATE: 01/28/2018 SUBJECTIVE: The patient, Hansel, is afebrile, feels better. Blood cultures are positive for gram-positive cocci. Sputum cultures are pending. PHYSICAL EXAMINATION: VITAL SIGNS: Blood pressure 112/63, pulse 74, respiratory rate 20, temperature 99. LUNGS: Bilateral scattered rales. CARDIOVASCULAR SYSTEM: S1 and S2 are regular. ABDOMEN: Soft. ASSESSMENT: 1. Septicemia, gram-positive cocci. Pending identity. 2. Chronic kidney disease. 3. Type 2 diabetes. 4. Anemia. 5. Urinary tract infection. PLAN: Antibiotics. Follow up of culture. Monitor the patient. Nasir Puentes MD
[2018-01-29] MEDS: Meropenem 500 MG in Sodium Chloride 0.9% 100 ML IVPB SCH ×3 (05:47→22:51)
[2018-01-29] MEDS: (Novolin R) Insulin Human Regular 100 units/ml vial SC SCH ×4 (08:27→22:23)
[2018-01-29 09:40] LABS: HEMOGLOBIN 9.8 g/dL (12.0-18.0); MEAN CELL VOLUME 78.9 fL (80.0-94.0); MEAN CORPUSCULAR HEMOGLOBIN 25.9 pg (27.0-31.0); MEAN CORPUSCULAR HGB CONC 32.8 g/dL (33.0-37.0); MEAN PLATELET VOLUME 8.9 fL (7.2-11.7); RBC 3.78 Mil/uL (4.40-5.90); RED CELL DISTRIBUTION WIDTH 14.1 % (11.5-14.5); WHITE BLOOD COUNT 8.4 K/uL (4.8-10.8)
[2018-01-29 10:02] LABS: ALB/GLOB RATIO 1.2 (1.0-2.1); CALCIUM 8.1 mg/dl (8.6-10.4)
[2018-01-29] MEDS: Azithromycin 500 MG in Sodium Chloride 0.9% 250 ML IVPB SCH (10:55)
[2018-01-29] MEDS: Sodium Chloride 0.9% 1,000 ML IV SCH (10:55)
--- NOTE | 2018-01-29 12:09 | CP.PCM.PN ---
Subjective - Date & Time of Evaluation Date of Evaluation: 01/29/18 Time of Evaluation: 12:01 - Subjective Subjective: Nephrology Consult Note for Dr. Day Patient seen and examined at bedside. No acute overnight events. Patient complains of some congestion. But is feeling better overall. Objective - Vital Signs/Intake and Output Vital Signs (last 24 hours): Temp Pulse Resp BP Pulse Ox 98.3 F 70 20 101/60 100 01/29/18 08:23 01/29/18 11:48 01/29/18 08:23 01/29/18 09:54 01/29/18 08:23 Intake and Output: 01/29/18 01/29/18 06:59 18:59 Intake Total 1190 Output Total 640 Balance 550 - Medications Medications: Current Medications Acetaminophen (Tylenol 325mg Tab) 325 mg PO Q4 PRN PRN Reason: Pain, Mild (1-3) Acetylcysteine (Acetylcysteine 20%) 4 ml INH RQ6 [facility] Last Admin: 01/29/18 07:45 Dose: 4 ml Al Hydrox/Mg Hydrox/Simethicone (Maalox Plus 30 Ml) 30 ml PO Q4 PRN PRN Reason: GI distress Albuterol/Ipratropium (Duoneb 3 Mg/0.5 Mg (3 Ml) Ud) 3 ml INH RQ6 [facility] Last Admin: 01/29/18 07:45 Dose: 3 ml Glimepiride (Amaryl) 2 mg PO DAILY [facility] Last Admin: 01/29/18 09:50 Dose: 2 mg Heparin Sodium (Porcine) (Heparin) 5,000 units SC Q8 [facility] Last Admin: 01/29/18 05:47 Dose: 5,000 units Azithromycin 500 mg/ Sodium (Chloride) 250 mls @ 250 mls/hr IVPB DAILY [facility]; Protocol Last Admin: 01/29/18 10:55 Dose: 250 mls/hr Sodium Chloride (Sodium Chloride 0.9%) 1,000 mls @ 60 mls/hr IV .[id number] [facility] Last Admin: 01/29/18 10:55 Dose: 60 mls/hr Meropenem 500 mg/ Sodium (Chloride) 100 mls @ 200 mls/hr IVPB Q8H [facility]; Protocol Last Admin: 01/29/18 05:47 Dose: 200 mls/hr Vancomycin/Sodium Chloride (Vancomycin 1 Gm/Ns 200 Ml) 1 gm in 200 mls @ 133.333 mls/hr IVPB Q24H [facility]; Protocol Last Admin: 01/28/18 14:08 Dose: 133.333 mls/hr Insulin Glargine (Lantus) 20 unit SC HS [facility] Last Admin: 01/28/18 22:21 Dose: 20 units Insulin Human Regular (Novolin R) 0 unit SC ACHS [facility]; Protocol Last Admin: 01/29/18 08:27 Dose: Not Given Magnesium Hydroxide (Milk Of Magnesia) 30 ml PO TID [facility] Last Admin: 01/28/18 14:20 Dose: Not Given Metoprolol Tartrate (Lopressor) 25 mg PO BID [facility] Last Admin: 01/29/18 09:54 Dose: Not Given Rosuvastatin Calcium (Crestor) 10 mg PO HS [facility] Last Admin: 01/28/18 22:20 Dose: 10 mg Tamsulosin HCl (Flomax) 0.4 mg PO DAILY [facility] Last Admin: 01/29/18 09:50 Dose: 0.4 mg - Labs Labs: 01/29/18 09:33 01/29/18 09:33 PT 17.4 SECONDS (9.7-12.2) H 01/26/18 22:40 INR 1.6 01/26/18 22:40 APTT 32 SECONDS (21-34) 01/26/18 22:40 - Constitutional Appears: No Acute Distress - Head Exam Head Exam: NORMAL INSPECTION - Eye Exam Eye Exam: Normal appearance - Neck Exam Neck Exam: Normal Inspection - Respiratory Exam Respiratory Exam: Rhonchi. absent: Decreased Breath Sounds, Rales, Wheezes, Respiratory Distress - Cardiovascular Exam Cardiovascular Exam: RRR, +S1, +S2. absent: Gallop, Rubs, Murmur - GI/Abdominal Exam GI & Abdominal Exam: Soft. absent: Distended, Guarding, Tenderness, Rebound - Extremities Exam Extremities Exam: Normal Inspection - Back Exam Back Exam: NORMAL INSPECTION - Neurological Exam Neurological Exam: Alert, Awake - Skin Skin Exam: Normal Color Assessment and Plan - Assessment and Plan (Free Text) Assessment: 72 yo M with PMH of CVA, dementia, DM2, HTN, HLD, CAD s/p CABG, and CHF was [place] for fever, productive cough, and chest congest ion. Patient was subsequently admitted for sepsis 2/2 pneumonia. Nephrology was consulted due to acute kidney injury. Plan: 1. VICTORINO on CKD - Likely 2/2 ATN in setting of sepsis - Renal US shows increased echogenicity of b/l renal parenchymal cortices suggestive of medical renal disease - Past UA shows consistent proteinuria likely due to DM, however, will need to rule out other causes - F/u CKD workup - Vit D WNL - HIV, Hep B, and C negative - F/u BRENDA, ANCA, IF, light chains, PTH, SPEP, microalbumin, protein/cr ratio - Rales on pulm exam, will stop IVF, CXR ordered - Will d/c auguste tomorrow and trial voiding - Avoid nephrotoxic agents 2. Sepsis 2/2 PNA - Afebrile - Leukocytosis resolved - CXR negative - Blood cultures positive for gram positive cocci - Abx per ID, can increase dose as renal function improves - Vanco trough ordered; Vanco held for now 3. Microcytic Anemia - Iron studies ordered for AM 4. HTN - Cont Metoprolol 5. DM - HgbA1c 6.6% - Cont management per primary Patient seen and discussed in detail with Dr. Day. Rafael Foss DO PGY2
[2018-01-29] MEDS: Potassium & Sodium Phosphate PO SCH (13:42)
--- NOTE | 2018-01-29 14:51 | RAD ---
Date of service: 01/29/2018 HISTORY: rales COMPARISON: 01/26/2018 FINDINGS: LUNGS: No active pulmonary disease. PLEURA: No significant pleural effusion identified, no pneumothorax apparent. CARDIOVASCULAR: No atherosclerotic calcification present No radiographic findings to suggest acute or significant cardiovascular disease. OSSEOUS STRUCTURES: No significant abnormalities. VISUALIZED UPPER ABDOMEN: Normal. OTHER FINDINGS: None. IMPRESSION: No active disease. No significant interval change compared to the prior examination(s).
--- NOTE | 2018-01-29 17:05 | CP.PCM.PN ---
Subjective - Date & Time of Evaluation Date of Evaluation: 01/29/18 Time of Evaluation: 12:30 - Subjective Subjective: Patient seen and examined at bedside. Patient states that he is feeling a lot better than yesterday. Admits to mild dry cough. Admits to some weakness and states that he has been working with PT. Denies any shortness of breath, fever, chills, headaches, or chest pain. Objective - Vital Signs/Intake and Output Vital Signs (last 24 hours): Temp Pulse Resp BP Pulse Ox 98.9 F 75 20 146/70 100 01/29/18 15:50 01/29/18 15:50 01/29/18 15:50 01/29/18 15:50 01/29/18 15:50 Intake and Output: 01/29/18 01/29/18 06:59 18:59 Intake Total 1190 680 Output Total 640 200 Balance 550 480 - Medications Medications: Current Medications Acetaminophen (Tylenol 325mg Tab) 325 mg PO Q4 PRN PRN Reason: Pain, Mild (1-3) Acetylcysteine (Acetylcysteine 20%) 4 ml INH RQ6 [facility] Last Admin: 01/29/18 13:35 Dose: 4 ml Al Hydrox/Mg Hydrox/Simethicone (Maalox Plus 30 Ml) 30 ml PO Q4 PRN PRN Reason: GI distress Albuterol/Ipratropium (Duoneb 3 Mg/0.5 Mg (3 Ml) Ud) 3 ml INH RQ6 [facility] Last Admin: 01/29/18 13:35 Dose: 3 ml Glimepiride (Amaryl) 2 mg PO DAILY [facility] Last Admin: 01/29/18 09:50 Dose: 2 mg Heparin Sodium (Porcine) (Heparin) 5,000 units SC Q8 [facility] Last Admin: 01/29/18 13:43 Dose: 5,000 units Meropenem 500 mg/ Sodium (Chloride) 100 mls @ 200 mls/hr IVPB Q8H [facility]; Protocol Last Admin: 01/29/18 13:43 Dose: 200 mls/hr Vancomycin/Sodium Chloride (Vancomycin 1 Gm/Ns 200 Ml) 1 gm in 200 mls @ 133.333 mls/hr IVPB Q24H [facility]; Protocol Last Admin: 01/28/18 14:08 Dose: 133.333 mls/hr Vancomycin/Sodium Chloride (Vancomycin 1 Gm/Ns 200 Ml) 1 gm in 200 mls @ 133.33 3 mls/hr IVPB Q24H [facility]; Protocol Stop: 02/03/18 16:01 Insulin Glargine (Lantus) 20 unit SC HS [facility] Last Admin: 01/28/18 22:21 Dose: 20 units Insulin Human Regular (Novolin R) 0 unit SC [facility]; Protocol Last Admin: 01/29/18 13:43 Dose: Not Given Magnesium Hydroxide (Milk Of Magnesia) 30 ml PO TID [facility] Last Admin: 01/28/18 14:20 Dose: Not Given Metoprolol Tartrate (Lopressor) 25 mg PO BID [facility] Last Admin: 01/29/18 09:54 Dose: Not Given Potassium Phos/Sodium Phos (Neutra-Phos) 1 pkt PO DAILY [facility] Stop: 01/31/18 12:46 Last Admin: 01/29/18 13:42 Dose: 1 pkt Rosuvastatin Calcium (Crestor) 10 mg PO [facility] Last Admin: 01/28/18 22:20 Dose: 10 mg Tamsulosin HCl (Flomax) 0.4 mg PO DAILY [facility] Last Admin: 01/29/18 09:50 Dose: 0.4 mg - Labs Labs: 01/29/18 09:33 01/29/18 09:33 PT 17.4 SECONDS (9.7-12.2) H 01/26/18 22:40 INR 1.6 01/26/18 22:40 APTT 32 SECONDS (21-34) 01/26/18 22:40 Assessment and Plan (1) Pneumonia Status: Acute
--- NOTE | 2018-01-29 17:26 | CP.PCM.PN ---
Subjective - Date & Time of Evaluation Date of Evaluation: 01/29/18 Time of Evaluation: 09:00 - Subjective Subjective: less fever less cough less SOB able to speak sentences denies chest pain Objective - Vital Signs/Intake and Output Vital Signs (last 24 hours): Temp Pulse Resp BP Pulse Ox 98.9 F 75 20 146/70 100 01/29/18 15:50 01/29/18 15:50 01/29/18 15:50 01/29/18 15:50 01/29/18 15:50 Intake and Output: 01/29/18 01/29/18 06:59 18:59 Intake Total 1190 680 Output Total 640 200 Balance 550 480 - Medications Medications: Current Medications Acetaminophen (Tylenol 325mg Tab) 325 mg PO Q4 PRN PRN Reason: Pain, Mild (1-3) Acetylcysteine (Acetylcysteine 20%) 4 ml INH RQ6 [facility] Last Admin: 01/29/18 13:35 Dose: 4 ml Al Hydrox/Mg Hydrox/Simethicone (Maalox Plus 30 Ml) 30 ml PO Q4 PRN PRN Reason: GI distress Albuterol/Ipratropium (Duoneb 3 Mg/0.5 Mg (3 Ml) Ud) 3 ml INH RQ6 [facility] Last Admin: 01/29/18 13:35 Dose: 3 ml Glimepiride (Amaryl) 2 mg PO DAILY [facility] Last Admin: 01/29/18 09:50 Dose: 2 mg Heparin Sodium (Porcine) (Heparin) 5,000 units SC Q8 [facility] Last Admin: 01/29/18 13:43 Dose: 5,000 units Meropenem 500 mg/ Sodium (Chloride) 100 mls @ 200 mls/hr IVPB Q8H [facility]; Protocol Last Admin: 01/29/18 13:43 Dose: 200 mls/hr Vancomycin/Sodium Chloride (Vancomycin 1 Gm/Ns 200 Ml) 1 gm in 200 mls @ 133.333 mls/hr IVPB Q24H [facility]; Protocol Last Admin: 01/28/18 14:08 Dose: 133.333 mls/hr Vancomycin/Sodium Chloride (Vancomycin 1 Gm/Ns 200 Ml) 1 gm in 200 mls @ 13 3.333 mls/hr IVPB Q24H [facility]; Protocol Stop: 02/03/18 16:01 Insulin Glargine (Lantus) 20 unit SC HS [facility] Last Admin: 01/28/18 22:21 Dose: 20 units Insulin Human Regular (Novolin R) 0 unit SC ACHS [facility]; Protocol Last Admin: 01/29/18 13:43 Dose: Not Given Magnesium Hydroxide (Milk Of Magnesia) 30 ml PO TID [facility] Last Admin: 01/28/18 14:20 Dose: Not Given Metoprolol Tartrate (Lopressor) 25 mg PO BID [facility] Last Admin: 01/29/18 09:54 Dose: Not Given Potassium Phos/Sodium Phos (Neutra-Phos) 1 pkt PO DAILY [facility] Stop: 01/31/18 12:46 Last Admin: 01/29/18 13:42 Dose: 1 pkt Rosuvastatin Calcium (Crestor) 10 mg PO [facility] Last Admin: 01/28/18 22:20 Dose: 10 mg Tamsulosin HCl (Flomax) 0.4 mg PO DAILY [facility] Last Admin: 01/29/18 09:50 Dose: 0.4 mg - Labs Labs: 01/29/18 09:33 01/29/18 09:33 PT 17.4 SECONDS (9.7-12.2) H 01/26/18 22:40 INR 1.6 01/26/18 22:40 APTT 32 SECONDS (21-34) 01/26/18 22:40 - Constitutional Appears: Non-toxic, Chronically Ill - Head Exam Head Exam: NORMOCEPHALIC - Eye Exam Eye Exam: absent: Scleral icterus - ENT Exam ENT Exam: Mucous Membranes Dry - Neck Exam Neck Exam: absent: Lymphadenopathy - Respiratory Exam Respiratory Exam: Decreased Breath Sounds - Cardiovascular Exam Cardiovascular Exam: REGULAR RHYTHM - GI/Abdominal Exam GI & Abdominal Exam: Distended - Rectal Exam Rectal Exam: Deferred - Exam Exam: NORMAL INSPECTION - Extremities Exam Extremities Exam: absent: Pedal Edema - Back Exam Back Exam: absent: CVA tenderness (L), CVA tenderness (R) - Neurological Exam Neurological Exam: Alert, Awake Assessment and Plan (1) Dehydration Status: Acute (2) Fever Status: Acute (3) Pneumonia Status: Acute - Assessment and Plan (Free Text) Assessment: + Blood cultures- await ID and sensitivity cont iv rx for pneumonia / sepsis
[2018-01-29] MEDS: Vancomycin 1 gm/NS 200 ml 1 GM/200 ML BAG IVPB SCH (17:47)
--- NOTE | 2018-01-29 21:35 | CP.PCM.PN ---
Subjective - Subjective Subjective: dictated Objective - Vital Signs/Intake and Output Vital Signs (last 24 hours): Temp Pulse Resp BP Pulse Ox 98.9 F 75 20 146/70 100 01/29/18 15:50 01/29/18 15:50 01/29/18 15:50 01/29/18 17:48 01/29/18 15:50 Intake and Output: 01/29/18 01/30/18 18:59 06:59 Intake Total 680 Output Total 200 Balance 480 - Medications Medications: Current Medications Acetaminophen (Tylenol 325mg Tab) 325 mg PO Q4 PRN PRN Reason: Pain, Mild (1-3) Acetylcysteine (Acetylcysteine 20%) 4 ml INH RQ6 [facility] Last Admin: 01/29/18 19:37 Dose: 4 ml Al Hydrox/Mg Hydrox/Simethicone (Maalox Plus 30 Ml) 30 ml PO Q4 PRN PRN Reason: GI distress Albuterol/Ipratropium (Duoneb 3 Mg/0.5 Mg (3 Ml) Ud) 3 ml INH RQ6 [facility] Last Admin: 01/29/18 19:37 Dose: 3 ml Fluconazole (Diflucan) 50 mg PO DAILY [facility]; Protocol Stop: 02/03/18 10:01 Glimepiride (Amaryl) 2 mg PO DAILY [facility] Last Admin: 01/29/18 09:50 Dose: 2 mg Heparin Sodium (Porcine) (Heparin) 5,000 units SC Q8 [facility] Last Admin: 01/29/18 13:43 Dose: 5,000 units Meropenem 500 mg/ Sodium (Chloride) 100 mls @ 200 mls/hr IVPB Q8H [facility]; Protocol Last Admin: 01/29/18 13:43 Dose: 200 mls/hr Vancomycin/Sodium Chloride (Vancomycin 1 Gm/Ns 200 Ml) 1 gm in 200 mls @ 133.333 mls/hr IVPB Q24H [facility]; Protocol Last Admin: 01/28/18 14:08 Dose: 133.333 mls/hr Vancomycin/Sodium Chloride (Vancomycin 1 Gm/Ns 200 Ml) 1 gm in 200 mls @ 133.333 mls/hr IVPB Q24H [facility]; Protocol Stop: 02/03/18 16:01 Last Admin: 01/29/18 17:47 Dose: 133.333 mls/hr Insulin Glargine (Lantus) 20 unit SC HS [facility] Last Admin: 01/28/18 22:21 Dose: 20 units Insulin Human Regular (Novolin R) 0 unit SC [facility]; Protocol Last Admin: 01/29/18 17:00 Dose: Not Given Magnesium Hydroxide (Milk Of Magnesia) 30 ml PO TID [facility] Last Admin: 01/28/18 14:20 Dose: Not Given Metoprolol Tartrate (Lopressor) 25 mg PO BID [facility] Last Admin: 01/29/18 17:48 Dose: 25 mg Potassium Phos/Sodium Phos (Neutra-Phos) 1 pkt PO DAILY [facility] Stop: 01/31/18 12:46 Last Admin: 01/29/18 13:42 Dose: 1 pkt Rosuvastatin Calcium (Crestor) 10 mg PO [facility] Last Admin: 01/28/18 22:20 Dose: 10 mg Tamsulosin HCl (Flomax) 0.4 mg PO DAILY [facility] Last Admin: 01/29/18 09:50 Dose: 0.4 mg - Labs Labs: 01/29/18 09:33 01/29/18 09:33 PT 17.4 SECONDS (9.7-12.2) H 01/26/18 22:40 INR 1.6 01/26/18 22:40 APTT 32 SECONDS (21-34) 01/26/18 22:40
[2018-01-29] MEDS: (Lantus) Insulin Glargine, Recombinant SC SCH (22:53)
[2018-01-30] MEDS: Acetylcysteine 20% Inhal Soln (4ml) INH SCH ×4 (01:12→19:18)
[2018-01-30] MEDS: Albuterol-Ipratrop 3 mg / 0.5 (3 ml) UD INH SCH ×4 (01:12→19:18)
--- NOTE | 2018-01-30 02:09 | PN ---
DATE: 01/29/2018 SUBJECTIVE: The patient is afebrile. He has blood cultures x2 positive. The patient is afebrile; on vancomycin, meropenem. Seen by Infectious Diseases. PHYSICAL EXAMINATION: GENERAL: He is awake, alert. VITAL SIGNS: Blood pressure 146/70, pulse 75, respiratory rate 20, temperature 98.9. LUNGS: Clear. CARDIOVASCULAR SYSTEM: S1, S2, regular. ABDOMEN: Soft. ASSESSMENT: 1. Urinary tract infection. 2. Obstructive uropathy. 3. Septicemia with gram-positive cocci, on vancomycin. 4. Chronic kidney disease. 5. Alzheimer's. PLAN: Urology eval, vancomycin, Merrem, ID followup. Nasir Puentes MD
[2018-01-30] MEDS: Meropenem 500 MG in Sodium Chloride 0.9% 100 ML IVPB SCH ×3 (06:14→22:01)
[2018-01-30 07:49] LABS: HEMOGLOBIN 10.5 g/dL (12.0-18.0); MEAN CELL VOLUME 79.1 fL (80.0-94.0); MEAN CORPUSCULAR HEMOGLOBIN 26.3 pg (27.0-31.0); MEAN CORPUSCULAR HGB CONC 33.3 g/dL (33.0-37.0); MEAN PLATELET VOLUME 9.1 fL (7.2-11.7); WHITE BLOOD COUNT 9.8 K/uL (4.8-10.8)
[2018-01-30] MEDS: (Novolin R) Insulin Human Regular 100 units/ml vial SC SCH ×4 (08:27→21:36)
[2018-01-30 08:39] LABS: ALB/GLOB RATIO 1.2 (1.0-2.1); ALBUMIN 3.2 g/dL (3.5-5.0); ALT/SGPT 56 U/L (21-72); AST/SGOT 36 U/L (17-59); BLOOD UREA NITROGEN 16 mg/dL (9-20); CALCIUM 8.1 mg/dl (8.6-10.4); GFR NON-AFRICAN AMERICAN 54; IRON 16 ug/dL (49-181)
[2018-01-30 08:48] LABS: % IRON SATURATION 9 (20-55); TOTAL IRON BINDING CAPACITY 172 ug/dL (250-450)
[2018-01-30] MEDS: Potassium & Sodium Phosphate PO SCH (09:13)
--- NOTE | 2018-01-30 09:53 | CP.PCM.PN ---
Subjective - Date & Time of Evaluation Date of Evaluation: 01/30/18 Time of Evaluation: 09:47 - Subjective Subjective: Nephrology Progress Note for Dr. Day Patient seen and examined at bedside. No acute overnight events. Palomares removed this AM, will do voiding trial. Objective - Vital Signs/Intake and Output Vital Signs (last 24 hours): Temp Pulse Resp BP Pulse Ox 97.9 F 71 18 140/64 100 01/30/18 07:25 01/30/18 07:41 01/30/18 07:25 01/30/18 09:13 01/30/18 07:25 Intake and Output: 01/30/18 01/30/18 06:59 18:59 Intake Total 650 Output Total 2800 Balance -2150 - Medications Medications: Current Medications Acetaminophen (Tylenol 325mg Tab) 325 mg PO Q4 PRN PRN Reason: Pain, Mild (1-3) Last Admin: 01/30/18 09:12 Dose: 325 mg Acetylcysteine (Acetylcysteine 20%) 4 ml INH RQ6 [facility] Last Admin: 01/30/18 07:35 Dose: 4 ml Al Hydrox/Mg Hydrox/Simethicone (Maalox Plus 30 Ml) 30 ml PO Q4 PRN PRN Reason: GI distress Albuterol/Ipratropium (Duoneb 3 Mg/0.5 Mg (3 Ml) Ud) 3 ml INH RQ6 [facility] Last Admin: 01/30/18 07:35 Dose: 3 ml Ferric Sodium Gluconate Complex (Ferrlecit) 125 mg IVPB DAILY [facility] Stop: 02/04/18 10:01 Fluconazole (Diflucan) 50 mg PO DAILY [facility]; Protocol Stop: 02/03/18 10:01 Last Admin: 01/30/18 09:12 Dose: 50 mg Glimepiride (Amaryl) 2 mg PO DAILY [facility] Last Admin: 01/30/18 09:14 Dose: 2 mg Heparin Sodium (Porcine) (Heparin) 5,000 units SC Q8 [facility] Last Admin: 01/30/18 06:14 Dose: 5,000 units Meropenem 500 mg/ Sodium (Chloride) 100 mls @ 200 mls/hr IVPB Q8H [facility]; Protocol Last Admin: 01/30/18 06:14 Dose: 200 mls/hr Vancomycin/Sodium Chloride (Vancomycin 1 Gm/Ns 200 Ml) 1 gm in 200 mls @ 133.333 mls/hr IVPB Q24H [facility]; Protocol Stop: 02/03/18 16:01 Last Admin: 01/29/18 17:47 Dose: 133.333 mls/hr Insulin Glargine (Lantus) 20 unit SC [facility] Last Admin: 01/29/18 22:53 Dose: 20 units Insulin Human Regular (Novolin R) 0 unit SC [facility]; Protocol Last Admin: 01/30/18 08:27 Dose: Not Given Magnesium Hydroxide (Milk Of Magnesia) 30 ml PO TID [facility] Last Admin: 01/28/18 14:20 Dose: Not Given Metoprolol Tartrate (Lopressor) 25 mg PO BID [facility] Last Admin: 01/30/18 09:13 Dose: 25 mg Potassium Phos/Sodium Phos (Neutra-Phos) 1 pkt PO DAILY [facility] Stop: 01/31/18 12:46 Last Admin: 01/30/18 09:13 Dose: 1 pkt Rosuvastatin Calcium (Crestor) 10 mg PO [facility] Last Admin: 01/29/18 22:52 Dose: 10 mg Tamsulosin HCl (Flomax) 0.4 mg PO DAILY [facility] Last Admin: 01/30/18 09:12 Dose: 0.4 mg - Labs Labs: 01/30/18 07:39 01/30/18 07:39 PT 17.4 SECONDS (9.7-12.2) H 01/26/18 22:40 INR 1.6 01/26/18 22:40 APTT 32 SECONDS (21-34) 01/26/18 22:40 - Constitutional Appears: No Acute Distress - Head Exam Head Exam: NORMAL INSPECTION - Eye Exam Eye Exam: Normal appearance - ENT Exam ENT Exam: Mucous Membranes Moist - Neck Exam Neck Exam: Normal Inspection - Respiratory Exam Respiratory Exam: Rales. absent: Rhonchi, Wheezes - Cardiovascular Exam Cardiovascular Exam: RRR, +S1, +S2. absent: Gallop, Rubs, Murmur - GI/Abdominal Exam GI & Abdominal Exam: Soft. absent: Distended, Guarding, Tenderness, Rebound - Extremities Exam Extremities Exam: Normal Inspection - Back Exam Back Exam: NORMAL INSPECTION - Neurological Exam Neurological Exam: Alert, Awake, Oriented x3 - Psychiatric Exam Psychiatric exam: Normal Affect, Normal Mood - Skin Skin Exam: Normal Color Assessment and Plan - Assessment and Plan (Free Text) Assessment: 72 yo M with PMH of CVA, dementia, DM2, HTN, HLD, CAD s/p CABG, and CHF was originally sent from [place] [facility] for fever, productive cough, and chest congestion. Patient was subsequently admitted for sepsis 2/2 pneumonia. Nephrology was consulted due to acute kidney injury. Renal function is now at baseline. Plan: 1. VICTORINO on CKD - VICTORINO likely 2/2 ATN in setting of sepsis, which appears to be resolved as creatinine is back at baseline - Renal US shows increased echogenicity of b/l renal parenchymal cortices suggestive of medical renal disease - Past UA shows consistent proteinuria likely due to DM, however, will need to rule out other causes - F/u CKD workup - Vit D WNL - HIV, Hep B, and C negative - MPO and PR3 negative - IF negative - F/u BRENDA, ANCA, IF, light chains, PTH, SPEP, microalbumin, protein/cr ratio - CXR negative, IVF DC - Palomares D/C, will monitor UO - Avoid nephrotoxic agents 2. Sepsis 2/2 PNA - Afebrilef - Leukocytosis resolved - CXR negative - Blood cultures positive for coag negative staph - Abx per ID - Vanco trough WNL 3. Microcytic Anemia - Low saturation, low-normal ferritin - IV iron started 4. HTN - Cont Metoprolol 5. DM - HgbA1c 6.6% - Cont management per primary Patient seen and discussed in detail with Dr. Day. Rafael Foss DO PGY2
[2018-01-30] MEDS ORDERED: Ferric Sodium Gluconat Complex 62.5 mg/5 ml Vial IVPB SCH (10:00)
--- NOTE | 2018-01-30 11:01 | CP.PCM.PN ---
Objective - Vital Signs/Intake and Output Vital Signs (last 24 hours): Temp Pulse Resp BP Pulse Ox 97.9 F 71 18 140/64 100 01/30/18 07:25 01/30/18 07:41 01/30/18 07:25 01/30/18 09:13 01/30/18 07:25 Intake and Output: 01/30/18 01/30/18 06:59 18:59 Intake Total 650 Output Total 2800 Balance -2150 - Medications Medications: Current Medications Acetaminophen (Tylenol 325mg Tab) 325 mg PO Q4 PRN PRN Reason: Pain, Mild (1-3) Last Admin: 01/30/18 09:12 Dose: 325 mg Acetylcysteine (Acetylcysteine 20%) 4 ml INH RQ6 [facility] Last Admin: 01/30/18 07:35 Dose: 4 ml Al Hydrox/Mg Hydrox/Simethicone (Maalox Plus 30 Ml) 30 ml PO Q4 PRN PRN Reason: GI distress Albuterol/Ipratropium (Duoneb 3 Mg/0.5 Mg (3 Ml) Ud) 3 ml INH RQ6 [facility] Last Admin: 01/30/18 07:35 Dose: 3 ml Fluconazole (Diflucan) 50 mg PO DAILY [facility]; Protocol Stop: 02/03/18 10:01 Last Admin: 01/30/18 09:12 Dose: 50 mg Glimepiride (Amaryl) 2 mg PO DAILY [facility] Last Admin: 01/30/18 09:14 Dose: 2 mg Heparin Sodium (Porcine) (Heparin) 5,000 units SC Q8 [facility] Last Admin: 01/30/18 06:14 Dose: 5,000 units Meropenem 500 mg/ Sodium (Chloride) 100 mls @ 200 mls/hr IVPB Q8H [facility]; Protocol Last Admin: 01/30/18 06:14 Dose: 200 mls/hr Vancomycin/Sodium Chloride (Vancomycin 1 Gm/Ns 200 Ml) 1 gm in 200 mls @ 133.333 mls/hr IVPB Q24H [facility]; Protocol Stop: 02/03/18 16:01 Last Admin: 01/29/18 17:47 Dose: 133.333 mls/hr Ferric Sodium Gluconate Complex 125 mg/ Sodium Chloride 110 mls @ 110 mls/hr IVPB Q24H [facility] Stop: 02/04/18 11:01 Insulin Glargine (Lantus) 20 unit SC [facility] Last Admin: 01/29/18 22:53 Dose: 20 units Insulin Human Regular (Novolin R) 0 unit SC [facility]; Protocol Last Admin: 01/30/18 08:27 Dose: Not Given Magnesium Hydroxide (Milk Of Magnesia) 30 ml PO TID [facility] Last Admin: 01/28/18 14:20 Dose: Not Given Metoprolol Tartrate (Lopressor) 25 mg PO BID [facility] Last Admin: 01/30/18 09:13 Dose: 25 mg Potassium Phos/Sodium Phos (Neutra-Phos) 1 pkt PO DAILY [facility] Stop: 01/31/18 12:46 Last Admin: 01/30/18 09:13 Dose: 1 pkt Rosuvastatin Calcium (Crestor) 10 mg PO [facility] Last Admin: 01/29/18 22:52 Dose: 10 mg Tamsulosin HCl (Flomax) 0.4 mg PO DAILY [facility] Last Admin: 01/30/18 09:12 Dose: 0.4 mg - Labs Labs: 01/30/18 07:39 01/30/18 07:39 PT 17.4 SECONDS (9.7-12.2) H 01/26/18 22:40 INR 1.6 01/26/18 22:40 APTT 32 SECONDS (21-34) 01/26/18 22:40
[2018-01-30] MEDS: Ferric Sodium Gluconat Complex 125 MG in Sodium Chloride 0.9% 100 ML IVPB SCH (11:47)
[2018-01-30] MEDS: Vancomycin 1 gm/NS 200 ml 1 GM/200 ML BAG IVPB SCH (15:04)
--- NOTE | 2018-01-30 15:06 | CARD ---
APPROVED REPORT Date of service: 01/29/2018 EXAM: Two-dimensional and M-mode echocardiogram with Doppler and color Doppler. Other Information Quality : TDSRhythm : INDICATION Infection:Rule out subacute bacterial endocarditis Syncope RISK FACTORS Hypertension Diabetes 2D DIMENSIONS IVSd0.9 (0.7-1.1cm)LVDd4.3 (3.9-5.9cm) PWd1.2 (0.7-1.1cm)LA [id number] (18-58mL) LVDs2.4 (2.5-4.0cm)FS (%) 44.4 % LVEF (%)75.9 (>50%)LVEF (Arce's)64.83 % M-Mode DIMENSIONS Left Atrium (MM)4.24 (2.5-4.0cm)IVSd0.91 (0.7-1.1cm) Aortic Root3.83 (2.2-3.7cm)LVDd4.47 (4.0-5.6cm) Aortic Cusp Exc.1.89 (1.5-2.0cm)PWd0.80 (0.7-1.1cm) FS (%) 47 %LVDs2.37 (2.0-3.8cm) LVEF (%)70 (>50%) Mitral Valve MV E Rxgfyybn78.3cm/sMV A Mqhrebxe495.1cm/sE/A ratio0.9 TDI Lateral E' Peak V8.00cm/sMedial E' Peak V6.22cm/sE/Lateral E'11.5 E/Medial E'14.8 Tricuspid Valve TR Peak Gtmswbbz012xp/sTR Peak Gr.[id number] LEFT VENTRICLE The left ventricle is normal size. There is normal left ventricular wall thickness. The Ejection Fraction is 65-70%. The left ventricular diastolic function is normal. RIGHT VENTRICLE The right ventricle is normal size. The right ventricular systolic function is normal. ATRIA The left atrium is mildly dilated. The right atrium size is normal. The interatrial septum is intact with no evidence for an atrial septal defect. AORTIC VALVE The aortic valve is moderately sclerotic. The aortic valve is trileaflet. No aortic regurgitation is present. MITRAL VALVE The mitral valve is thickened but opens well. Mitral regurgitation is mild. TRICUSPID VALVE The tricuspid valve is normal in structure. There is mild tricuspid regurgitation. Right ventricular systolic pressure is estimated at 38 mmHg. There is mild pulmonary hypertension. PULMONIC VALVE The pulmonary valve is normal in structure. GREAT VESSELS The aortic root is normal size. The aortic root displays mild sclerocalcific changes of the aortic root. The IVC is normal in size and collapses >50% with inspiration. PERICARDIAL EFFUSION There is no pericardial effusion. <Conclusion> The left ventricle is normal size. The Ejection Fraction is 65-70%. The left ventricular diastolic function is normal. The left atrium is mildly dilated. The aortic valve is moderately sclerotic. The aortic valve is trileaflet. Mitral regurgitation is mild. The aortic root is normal size. The aortic root displays mild sclerocalcific changes of the aortic root. The IVC is normal in size and collapses >50% with inspiration. There is no pericardial effusion.
[2018-01-30 15:52] VITALS: RESP 20
--- NOTE | 2018-01-30 17:13 | CP.PCM.PN ---
Subjective - Date & Time of Evaluation Date of Evaluation: 01/30/18 Time of Evaluation: 10:55 - Subjective Subjective: Patient seen and examined at bedside. Patient resting comfortably in bed, not in acute distress, and eating breakfast. Patient states that his shortness of breath has improved quite a lot, but admits to cough without phlegm production. Patient had a mild fever of 100.8F last night, but has been afebrile since. Objective - Vital Signs/Intake and Output Vital Signs (last 24 hours): Temp Pulse Resp BP Pulse Ox 97.7 F 66 20 155/69 H 100 01/30/18 15:49 01/30/18 15:49 01/30/18 15:49 01/30/18 15:49 01/30/18 15:49 Intake and Output: 01/30/18 01/30/18 06:59 18:59 Intake Total 650 430 Output Total 2800 300 Balance -2150 130 - Medications Medications: Current Medications Acetaminophen (Tylenol 325mg Tab) 325 mg PO Q4 PRN PRN Reason: Pain, Mild (1-3) Last Admin: 01/30/18 09:12 Dose: 325 mg Acetylcysteine (Acetylcysteine 20%) 4 ml INH RQ6 [facility] Last Admin: 01/30/18 13:15 Dose: 4 ml Al Hydrox/Mg Hydrox/Simethicone (Maalox Plus 30 Ml) 30 ml PO Q4 PRN PRN Reason: GI distress Albuterol/Ipratropium (Duoneb 3 Mg/0.5 Mg (3 Ml) Ud) 3 ml INH RQ6 [facility] Last Admin: 01/30/18 13:15 Dose: 3 ml Doxazosin Mesylate (Cardura) 2 mg PO DAILY [facility] Fluconazole (Diflucan) 50 mg PO DAILY [facility]; Protocol Stop: 02/03/18 10:01 Last Admin: 01/30/18 09:12 Dose: 50 mg Glimepiride (Amaryl) 2 mg PO DAILY [facility] Last Admin: 01/30/18 09:14 Dose: 2 mg Heparin Sodium (Porcine) (Heparin) 5,000 units SC Q8 [facility] Last Admin: 01/30/18 13:33 Dose: 5,000 units Meropenem 500 mg/ Sodium (Chloride) 100 mls @ 200 mls/hr IVPB Q8H [facility]; Protocol Last Admin: 01/30/18 13:30 Dose: 200 mls/hr Vancomycin/Sodium Chloride (Vancomycin 1 Gm/Ns 200 Ml) 1 gm in 200 mls @ 133.333 mls/hr IVPB Q24H [facility]; Protocol Stop: 02/03/18 16:01 Last Admin: 01/30/18 15:04 Dose: 133.333 mls/hr Ferric Sodium Gluconate Complex 125 mg/ Sodium Chloride 110 mls @ 110 mls/hr IVPB Q24H [facility] Stop: 02/04/18 11:01 Last Admin: 01/30/18 11:47 Dose: 110 mls/hr Insulin Glargine (Lantus) 20 unit SC [facility] Last Admin: 01/29/18 22:53 Dose: 20 units Insulin Human Regular (Novolin R) 0 unit SC [facility]; Protocol Last Admin: 01/30/18 17:04 Dose: Not Given Magnesium Hydroxide (Milk Of Magnesia) 30 ml PO TID [facility] Last Admin: 01/28/18 14:20 Dose: Not Given Metoprolol Tartrate (Lopressor) 25 mg PO BID [facility] Last Admin: 01/30/18 09:13 Dose: 25 mg Potassium Phos/Sodium Phos (Neutra-Phos) 1 pkt PO DAILY [facility] Stop: 01/31/18 12:46 Last Admin: 01/30/18 09:13 Dose: 1 pkt Rosuvastatin Calcium (Crestor) 10 mg PO [facility] Last Admin: 01/29/18 22:52 Dose: 10 mg - Labs Labs: 01/30/18 07:39 01/30/18 07:39 PT 17.4 SECONDS (9.7-12.2) H 01/26/18 22:40 INR 1.6 01/26/18 22:40 APTT 32 SECONDS (21-34) 01/26/18 22:40 Assessment and Plan (1) Pneumonia Status: Acute
--- NOTE | 2018-01-30 17:58 | CP.PCM.PN ---
Subjective - Date & Time of Evaluation Date of Evaluation: 01/30/18 Time of Evaluation: 10:00 - Subjective Subjective: resting comfortably in bed, not in acute distress fever persists Objective - Vital Signs/Intake and Output Vital Signs (last 24 hours): Temp Pulse Resp BP Pulse Ox 97.7 F 66 20 155/69 H 100 01/30/18 15:49 01/30/18 15:49 01/30/18 15:49 01/30/18 15:49 01/30/18 15:49 Intake and Output: 01/30/18 01/30/18 06:59 18:59 Intake Total 650 430 Output Total 2800 900 Balance -2150 -470 - Medications Medications: Current Medications Acetaminophen (Tylenol 325mg Tab) 325 mg PO Q4 PRN PRN Reason: Pain, Mild (1-3) Last Admin: 01/30/18 09:12 Dose: 325 mg Acetylcysteine (Acetylcysteine 20%) 4 ml INH RQ6 [facility] Last Admin: 01/30/18 13:15 Dose: 4 ml Al Hydrox/Mg Hydrox/Simethicone (Maalox Plus 30 Ml) 30 ml PO Q4 PRN PRN Reason: GI distress Albuterol/Ipratropium (Duoneb 3 Mg/0.5 Mg (3 Ml) Ud) 3 ml INH RQ6 [facility] Last Admin: 01/30/18 13:15 Dose: 3 ml Doxazosin Mesylate (Cardura) 2 mg PO DAILY [facility] Fluconazole (Diflucan) 50 mg PO DAILY [facility]; Protocol Stop: 02/03/18 10:01 Last Admin: 01/30/18 09:12 Dose: 50 mg Glimepiride (Amaryl) 2 mg PO DAILY [facility] Last Admin: 01/30/18 09:14 Dose: 2 mg Heparin Sodium (Porcine) (Heparin) 5,000 units SC Q8 [facility] Last Admin: 01/30/18 13:33 Dose: 5,000 units Meropenem 500 mg/ Sodium (Chloride) 100 mls @ 200 mls/hr IVPB Q8H [facility]; Protocol Last Admin: 01/30/18 13:30 Dose: 200 mls/hr Vancomycin/Sodium Chloride (Vancomycin 1 Gm/Ns 200 Ml) 1 gm in 200 mls @ 133.333 mls/hr IVPB Q24H [facility]; Protocol Stop: 02/03/18 16:01 Last Admin: 01/30/18 15:04 Dose: 133.333 mls/hr Ferric Sodium Gluconate Complex 125 mg/ Sodium Chloride 110 mls @ 110 mls/hr IVPB Q24H [facility] Stop: 02/04/18 11:01 Last Admin: 01/30/18 11:47 Dose: 110 mls/hr Insulin Glargine (Lantus) 20 unit SC HS [facility] Last Admin: 01/29/18 22:53 Dose: 20 units Insulin Human Regular (Novolin R) 0 unit SC [facility]; Protocol Last Admin: 01/30/18 17:04 Dose: Not Given Magnesium Hydroxide (Milk Of Magnesia) 30 ml PO TID [facility] Last Admin: 01/28/18 14:20 Dose: Not Given Metoprolol Tartrate (Lopressor) 25 mg PO BID [facility] Last Admin: 01/30/18 09:13 Dose: 25 mg Potassium Phos/Sodium Phos (Neutra-Phos) 1 pkt PO DAILY [facility] Stop: 01/31/18 12:46 Last Admin: 01/30/18 09:13 Dose: 1 pkt Rosuvastatin Calcium (Crestor) 10 mg PO [facility] Last Admin: 01/29/18 22:52 Dose: 10 mg - Labs Labs: 01/30/18 07:39 01/30/18 07:39 PT 17.4 SECONDS (9.7-12.2) H 01/26/18 22:40 INR 1.6 01/26/18 22:40 APTT 32 SECONDS (21-34) 01/26/18 22:40 - Constitutional Appears: Non-toxic, Chronically Ill - Head Exam Head Exam: NORMOCEPHALIC - Eye Exam Eye Exam: PERRL - ENT Exam ENT Exam: Mucous Membranes Dry - Neck Exam Neck Exam: absent: Lymphadenopathy - Respiratory Exam Respiratory Exam: Decreased Breath Sounds - Cardiovascular Exam Cardiovascular Exam: REGULAR RHYTHM, +S1, +S2 - GI/Abdominal Exam GI & Abdominal Exam: Distended - Rectal Exam Rectal Exam: Deferred - Exam Exam: NORMAL INSPECTION - Extremities Exam Extremities Exam: absent: Pedal Edema - Back Exam Back Exam: absent: CVA tenderness (L), CVA tenderness (R) - Neurological Exam Neurological Exam: Alert, Awake, CN II-XII Intact, Oriented x3 - Psychiatric Exam Psychiatric exam: Normal Mood - Skin Skin Exam: Dry Assessment and Plan (1) Dehydration Status: Acute (2) Fever Status: Acute (3) Pneumonia Status: Acute - Assessment and Plan (Free Text) Assessment: blood c/s- coag neg staph- ? possible contaminant await echo still no sputum c/s cont iv rx improving
[2018-01-30] MEDS: (Lantus) Insulin Glargine, Recombinant SC SCH (22:10)
--- NOTE | 2018-01-30 22:12 | CP.PCM.PN ---
Subjective - Subjective Subjective: dictated Objective - Vital Signs/Intake and Output Vital Signs (last 24 hours): Temp Pulse Resp BP Pulse Ox 97.7 F 76 20 155/69 H 100 01/30/18 15:49 01/30/18 16:10 01/30/18 15:49 01/30/18 18:48 01/30/18 15:49 Intake and Output: 01/30/18 01/31/18 18:59 06:59 Intake Total 430 Output Total 900 450 Balance -470 -450 - Medications Medications: Current Medications Acetaminophen (Tylenol 325mg Tab) 325 mg PO Q4 PRN PRN Reason: Pain, Mild (1-3) Last Admin: 01/30/18 09:12 Dose: 325 mg Acetylcysteine (Acetylcysteine 20%) 4 ml INH RQ6 [facility] Last Admin: 01/30/18 19:18 Dose: 4 ml Al Hydrox/Mg Hydrox/Simethicone (Maalox Plus 30 Ml) 30 ml PO Q4 PRN PRN Reason: GI distress Albuterol/Ipratropium (Duoneb 3 Mg/0.5 Mg (3 Ml) Ud) 3 ml INH RQ6 [facility] Last Admin: 01/30/18 19:18 Dose: 3 ml Doxazosin Mesylate (Cardura) 2 mg PO DAILY [facility] Fluconazole (Diflucan) 50 mg PO DAILY [facility]; Protocol Stop: 02/03/18 10:01 Last Admin: 01/30/18 09:12 Dose: 50 mg Glimepiride (Amaryl) 2 mg PO DAILY [facility] Last Admin: 01/30/18 09:14 Dose: 2 mg Heparin Sodium (Porcine) (Heparin) 5,000 units SC Q8 [facility] Last Admin: 01/30/18 22:01 Dose: 5,000 units Meropenem 500 mg/ Sodium (Chloride) 100 mls @ 200 mls/hr IVPB Q8H [facility]; Protocol Last Admin: 01/30/18 22:01 Dose: 200 mls/hr Vancomycin/Sodium Chloride (Vancomycin 1 Gm/Ns 200 Ml) 1 gm in 200 mls @ 133.333 mls/hr IVPB Q24H [facility]; Protocol Stop: 02/03/18 16:01 Last Admin: 01/30/18 15:04 Dose: 133.333 mls/hr Ferric Sodium Gluconate Complex 125 mg/ Sodium Chloride 110 mls @ 110 mls/hr IVPB Q24H [facility] Stop: 02/04/18 11:01 Last Admin: 01/30/18 11:47 Dose: 110 mls/hr Insulin Glargine (Lantus) 20 unit SC [facility] Last Admin: 01/30/18 22:10 Dose: 20 units Insulin Human Regular (Novolin R) 0 unit SC [facility]; Protocol Last Admin: 01/30/18 21:36 Dose: Not Given Magnesium Hydroxide (Milk Of Magnesia) 30 ml PO TID [facility] Last Admin: 01/28/18 14:20 Dose: Not Given Metoprolol Tartrate (Lopressor) 25 mg PO BID [facility] Last Admin: 01/30/18 18:48 Dose: 25 mg Potassium Phos/Sodium Phos (Neutra-Phos) 1 pkt PO DAILY [facility] Stop: 01/31/18 12:46 Last Admin: 01/30/18 09:13 Dose: 1 pkt Rosuvastatin Calcium (Crestor) 10 mg PO [facility] Last Admin: 01/30/18 22:01 Dose: 10 mg - Labs Labs: 01/30/18 07:39 01/30/18 07:39 PT 17.4 SECONDS (9.7-12.2) H 01/26/18 22:40 INR 1.6 01/26/18 22:40 APTT 32 SECONDS (21-34) 01/26/18 22:40
[2018-01-31] MEDS: Albuterol-Ipratrop 3 mg / 0.5 (3 ml) UD INH SCH ×4 (02:44→19:11)
[2018-01-31] MEDS: Acetylcysteine 20% Inhal Soln (4ml) INH SCH ×4 (02:44→19:11)
--- NOTE | 2018-01-31 04:17 | PN ---
DATE: 01/30/2018 SUBJECTIVE: Sahil Hamm is septic. He is afebrile, on vancomycin. No nausea or vomiting. Seen by ID. PHYSICAL EXAMINATION VITAL SIGNS: Blood pressure 155/69, pulse 76, respiratory rate 20, temperature 97.7. LUNGS: Clear. CARDIOVASCULAR SYSTEM: S1 and S2 are regular. ABDOMEN: Soft. LABORATORY DATA: WBC 9.8, hemoglobin 10.5, hematocrit 31.6, and platelets 153. Sodium 133, potassium 3.9, chloride 103, bicarb 22, BUN 16, and creatinine 1.3. ASSESSMENT: 1. Septicemia, etiology unclear. The patient is on antibiotics. Repeat blood cultures were negative. The patient is Staphylococcus coagulase negative, pansensitive. 2. Chronic kidney disease. 3. Hypertension. 4. Diabetes. CONDITION UPON DISCHARGE: Stable. Nasir Puentes MD
[2018-01-31] MEDS: Meropenem 500 MG in Sodium Chloride 0.9% 100 ML IVPB SCH ×3 (05:33→22:01)
[2018-01-31] MEDS: (Novolin R) Insulin Human Regular 100 units/ml vial SC SCH ×4 (07:29→21:50)
[2018-01-31 07:32] LABS: HEMOGLOBIN 11.1 g/dL (12.0-18.0); MEAN CELL VOLUME 79.1 fL (80.0-94.0); MEAN CORPUSCULAR HEMOGLOBIN 26.3 pg (27.0-31.0); MEAN CORPUSCULAR HGB CONC 33.2 g/dL (33.0-37.0); MEAN PLATELET VOLUME 9.7 fL (7.2-11.7); RBC 4.21 Mil/uL (4.40-5.90); RED CELL DISTRIBUTION WIDTH 14.4 % (11.5-14.5); WHITE BLOOD COUNT 10.4 K/uL (4.8-10.8)
[2018-01-31 09:00] LABS: ALBUMIN (PEP) 3.1 g/dL (3.8-4.8); ALPHA-1-GLOBULIN (PEP) 0.4 g/dL (0.2-0.3)
[2018-01-31 09:12] LABS: ALB/GLOB RATIO 1.1 (1.0-2.1); ALBUMIN 3.5 g/dL (3.5-5.0); CALCIUM 8.8 mg/dl (8.6-10.4)
[2018-01-31] MEDS: Potassium & Sodium Phosphate PO SCH (10:05)
--- NOTE | 2018-01-31 11:08 | CP.PCM.PN ---
Subjective - Date & Time of Evaluation Date of Evaluation: 01/31/18 Time of Evaluation: 11:03 - Subjective Subjective: Nephrology Progress Note for Dr. Day Patient seen and examined at bedside. No acute overnight events. Patient is able to void on his own. Patient offers no other complaints today. Objective - Vital Signs/Intake and Output Vital Signs (last 24 hours): Temp Pulse Resp BP Pulse Ox 98.8 F 94 H 20 136/74 100 01/31/18 08:18 01/31/18 08:18 01/31/18 08:18 01/31/18 10:04 01/31/18 08:18 Intake and Output: 01/31/18 01/31/18 06:59 18:59 Intake Total 300 Output Total 2000 Balance -1700 - Medications Medications: Current Medications Acetaminophen (Tylenol 325mg Tab) 325 mg PO Q4 PRN PRN Reason: Pain, Mild (1-3) Last Admin: 01/30/18 09:12 Dose: 325 mg Acetylcysteine (Acetylcysteine 20%) 4 ml INH RQ6 [facility] Last Admin: 01/31/18 08:18 Dose: 4 ml Al Hydrox/Mg Hydrox/Simethicone (Maalox Plus 30 Ml) 30 ml PO Q4 PRN PRN Reason: GI distress Albuterol/Ipratropium (Duoneb 3 Mg/0.5 Mg (3 Ml) Ud) 3 ml INH RQ6 [facility] Last Admin: 01/31/18 08:18 Dose: 3 ml Doxazosin Mesylate (Cardura) 2 mg PO DAILY [facility] Last Admin: 01/31/18 10:05 Dose: 2 mg Fluconazole (Diflucan) 50 mg PO DAILY [facility]; Protocol Stop: 02/03/18 10:01 Last Admin: 01/31/18 10:04 Dose: 50 mg Glimepiride (Amaryl) 2 mg PO DAILY [facility] Last Admin: 01/31/18 10:04 Dose: 2 mg Heparin Sodium (Porcine) (Heparin) 5,000 units SC Q8 [facility] Last Admin: 01/31/18 05:33 Dose: 5,000 units Meropenem 500 mg/ Sodium (Chloride) 100 mls @ 200 mls/hr IVPB Q8H [facility]; Protocol Last Admin: 01/31/18 05:33 Dose: 200 mls/hr Vancomycin/Sodium Chloride (Vancomycin 1 Gm/Ns 200 Ml) 1 gm in 200 mls @ 133.333 mls/hr IVPB Q24H [facility]; Protocol Stop: 02/03/18 16:01 Last Admin: 01/30/18 15:04 Dose: 133.333 mls/hr Ferric Sodium Gluconate Complex 125 mg/ Sodium Chloride 110 mls @ 110 mls/hr IVPB Q24H [facility] Stop: 02/04/18 11:01 Last Admin: 01/30/18 11:47 Dose: 110 mls/hr Insulin Glargine (Lantus) 20 unit SC [facility] Last Admin: 01/30/18 22:10 Dose: 20 units Insulin Human Regular (Novolin R) 0 unit SC [facility]; Protocol Last Admin: 01/31/18 07:29 Dose: Not Given Magnesium Hydroxide (Milk Of Magnesia) 30 ml PO TID [facility] Last Admin: 01/28/18 14:20 Dose: Not Given Metoprolol Tartrate (Lopressor) 25 mg PO BID [facility] Last Admin: 01/31/18 10:04 Dose: 25 mg Potassium Phos/Sodium Phos (Neutra-Phos) 1 pkt PO DAILY [facility] Stop: 01/31/18 12:46 Last Admin: 01/31/18 10:05 Dose: 1 pkt Rosuvastatin Calcium (Crestor) 10 mg PO [facility] Last Admin: 01/30/18 22:01 Dose: 10 mg - Labs Labs: 01/31/18 07:25 01/31/18 07:25 PT 17.4 SECONDS (9.7-12.2) H 01/26/18 22:40 INR 1.6 01/26/18 22:40 APTT 32 SECONDS (21-34) 01/26/18 22:40 - Constitutional Appears: No Acute Distress - Head Exam Head Exam: NORMAL INSPECTION - Eye Exam Eye Exam: Normal appearance - ENT Exam ENT Exam: Mucous Membranes Moist - Neck Exam Neck Exam: Normal Inspection - Respiratory Exam Respiratory Exam: Clear to Ausculation Bilateral. absent: Rales, Rhonchi, Wheezes - Cardiovascular Exam Cardiovascular Exam: RRR. absent: Gallop, Rubs, Murmur - GI/Abdominal Exam GI & Abdominal Exam: Soft. absent: Distended, Guarding, Tenderness, Rebound - Extremities Exam Extremities Exam: Normal Inspection - Back Exam Back Exam: NORMAL INSPECTION - Neurological Exam Neurological Exam: Alert, Awake - Skin Skin Exam: Normal Color Assessment and Plan - Assessment and Plan (Free Text) Assessment: 72 yo M with PMH of CVA, dementia, DM2, HTN, HLD, CAD s/p CABG, and CHF was cory ginally sent from half-way for fever, productive cough, and chest congestion. Patient was subsequently admitted for sepsis 2/2 pneumonia. Nephrology was consulted due to acute kidney injury. Renal function is now at baseline. Plan: 1. VICTORINO on CKD - VICTORINO likely 2/2 ATN in setting of sepsis, which appears to be resolved as creatinine is back at baseline - Renal US shows increased echogenicity of b/l renal parenchymal cortices suggestive of medical renal disease - Past UA shows consistent proteinuria likely due to DM, however, will need to rule out other causes - F/u CKD workup - Vit D WNL - HIV, Hep B, and C negative - MPO and PR3 negative - IF negative - SPEP consistent with acute phase reaction - Urine microalbumin 0.8 - Microalbumin/Cr Ratio greatly elevated, will reorder - F/u BRENDA, ANCA, light chains - Voiding trial passed - Avoid nephrotoxic agents 2. Sepsis 2/2 PNA - Improving - Afebrile - Leukocytosis resolved - CXR negative - Blood cultures positive for coag negative staph - Abx per ID - Vanco trough WNL 3. Microcytic Anemia - Low saturation - IV iron yesterday 4. HTN - Cont Metoprolol 5. DM - HgbA1c 6.6% - Cont management per primary Patient seen and discussed in detail with Dr. Day. Rafael Foss DO PGY2
[2018-01-31] MEDS: Ferric Sodium Gluconat Complex 125 MG in Sodium Chloride 0.9% 100 ML IVPB SCH (11:45)
[2018-01-31] MEDS: Vancomycin 1 gm/NS 200 ml 1 GM/200 ML BAG IVPB SCH (16:34)
--- NOTE | 2018-01-31 18:40 | CP.PCM.PN ---
Subjective - Date & Time of Evaluation Date of Evaluation: 01/31/18 Time of Evaluation: 08:00 - Subjective Subjective: FEELS BETTER REPEAT BLOOD C/S NEG CONT RX Objective - Vital Signs/Intake and Output Vital Signs (last 24 hours): Temp Pulse Resp BP Pulse Ox 98.1 F 62 20 146/77 100 01/31/18 15:54 01/31/18 15:54 01/31/18 15:54 01/31/18 15:54 01/31/18 15:54 Intake and Output: 01/31/18 01/31/18 06:59 18:59 Intake Total 300 100 Output Total 1999 200 Balance -1700 -100 - Medications Medications: Current Medications Acetaminophen (Tylenol 325mg Tab) 325 mg PO Q4 PRN PRN Reason: Pain, Mild (1-3) Last Admin: 01/30/18 09:12 Dose: 325 mg Acetylcysteine (Acetylcysteine 20%) 4 ml INH RQ6 [facility] Last Admin: 01/31/18 13:36 Dose: Not Given Al Hydrox/Mg Hydrox/Simethicone (Maalox Plus 30 Ml) 30 ml PO Q4 PRN PRN Reason: GI distress Albuterol/Ipratropium (Duoneb 3 Mg/0.5 Mg (3 Ml) Ud) 3 ml INH RQ6 [facility] Last Admin: 01/31/18 13:36 Dose: Not Given Doxazosin Mesylate (Cardura) 2 mg PO DAILY [facility] Last Admin: 01/31/18 10:05 Dose: 2 mg Fluconazole (Diflucan) 50 mg PO DAILY [facility]; Protocol Stop: 02/03/18 10:01 Last Admin: 01/31/18 10:04 Dose: 50 mg Glimepiride (Amaryl) 2 mg PO DAILY [facility] Last Admin: 01/31/18 10:04 Dose: 2 mg Heparin Sodium (Porcine) (Heparin) 5,000 units SC Q8 [facility] Last Admin: 01/31/18 14:19 Dose: 5,000 units Meropenem 500 mg/ Sodium (Chloride) 100 mls @ 200 mls/hr IVPB Q8H [facility]; Protocol Last Admin: 01/31/18 14:20 Dose: 200 mls/hr Vancomycin/Sodium Chloride (Vancomycin 1 Gm/Ns 200 Ml) 1 gm in 200 mls @ 133.333 mls/hr IVPB Q24H [facility]; Protocol Stop: 02/03/18 16:01 Last Admin: 01/31/18 16:34 Dose: 133.333 mls/hr Ferric Sodium Gluconate Complex 125 mg/ Sodium Chloride 110 mls @ 110 mls/hr IVPB Q24H [facility] Stop: 02/04/18 11:01 Last Admin: 01/31/18 11:45 Dose: 110 mls/hr Insulin Glargine (Lantus) 20 unit SC [facility] Last Admin: 01/30/18 22:10 Dose: 20 units Insulin Human Regular (Novolin R) 0 unit SC [facility]; Protocol Last Admin: 01/31/18 17:00 Dose: Not Given Magnesium Hydroxide (Milk Of Magnesia) 30 ml PO TID [facility] Last Admin: 01/28/18 14:20 Dose: Not Given Metoprolol Tartrate (Lopressor) 25 mg PO BID [facility] Last Admin: 01/31/18 10:04 Dose: 25 mg Rosuvastatin Calcium (Crestor) 10 mg PO [facility] Last Admin: 01/30/18 22:01 Dose: 10 mg - Labs Labs: 01/31/18 07:25 01/31/18 07:25 PT 17.4 SECONDS (9.7-12.2) H 01/26/18 22:40 INR 1.6 01/26/18 22:40 APTT 32 SECONDS (21-34) 01/26/18 22:40 - Constitutional Appears: Non-toxic, Chronically Ill - Head Exam Head Exam: NORMOCEPHALIC - Eye Exam Eye Exam: absent: Scleral icterus - ENT Exam ENT Exam: Mucous Membranes Dry - Neck Exam Neck Exam: absent: Lymphadenopathy - Respiratory Exam Respiratory Exam: Decreased Breath Sounds - Cardiovascular Exam Cardiovascular Exam: REGULAR RHYTHM - GI/Abdominal Exam GI & Abdominal Exam: Distended, Soft Assessment and Plan (1) Dehydration Status: Acute (2) Fever Status: Acute (3) Pneumonia Status: Acute
--- NOTE | 2018-01-31 20:04 | CP.PCM.PN ---
Subjective - Subjective Subjective: dictated Objective - Vital Signs/Intake and Output Vital Signs (last 24 hours): Temp Pulse Resp BP Pulse Ox 98.1 F 62 20 107/69 100 01/31/18 15:54 01/31/18 15:54 01/31/18 15:54 01/31/18 19:17 01/31/18 15:54 Intake and Output: 01/31/18 02/01/18 18:59 06:59 Intake Total 100 Output Total 200 Balance -100 - Medications Medications: Current Medications Acetaminophen (Tylenol 325mg Tab) 325 mg PO Q4 PRN PRN Reason: Pain, Mild (1-3) Last Admin: 01/30/18 09:12 Dose: 325 mg Acetylcysteine (Acetylcysteine 20%) 4 ml INH RQ6 [facility] Last Admin: 01/31/18 19:11 Dose: 4 ml Al Hydrox/Mg Hydrox/Simethicone (Maalox Plus 30 Ml) 30 ml PO Q4 PRN PRN Reason: GI distress Albuterol/Ipratropium (Duoneb 3 Mg/0.5 Mg (3 Ml) Ud) 3 ml INH RQ6 [facility] Last Admin: 01/31/18 19:11 Dose: 3 ml Doxazosin Mesylate (Cardura) 2 mg PO DAILY [facility] Last Admin: 01/31/18 10:05 Dose: 2 mg Fluconazole (Diflucan) 50 mg PO DAILY [facility]; Protocol Stop: 02/03/18 10:01 Last Admin: 01/31/18 10:04 Dose: 50 mg Glimepiride (Amaryl) 2 mg PO DAILY [facility] Last Admin: 01/31/18 10:04 Dose: 2 mg Heparin Sodium (Porcine) (Heparin) 5,000 units SC Q8 [facility] Last Admin: 01/31/18 14:19 Dose: 5,000 units Meropenem 500 mg/ Sodium (Chloride) 100 mls @ 200 mls/hr IVPB Q8H [facility]; Protocol Last Admin: 01/31/18 14:20 Dose: 200 mls/hr Vancomycin/Sodium Chloride (Vancomycin 1 Gm/Ns 200 Ml) 1 gm in 200 mls @ 133.333 mls/hr IVPB Q24H [facility]; Protocol Stop: 02/03/18 16:01 Last Admin: 01/31/18 16:34 Dose: 133.333 mls/hr Ferric Sodium Gluconate Complex 125 mg/ Sodium Chloride 110 mls @ 110 mls/hr IVPB Q24H [facility] Stop: 02/04/18 11:01 Last Admin: 01/31/18 11:45 Dose: 110 mls/hr Insulin Glargine (Lantus) 20 unit SC [facility] Last Admin: 01/30/18 22:10 Dose: 20 units Insulin Human Regular (Novolin R) 0 unit SC [facility]; Protocol Last Admin: 01/31/18 17:00 Dose: Not Given Magnesium Hydroxide (Milk Of Magnesia) 30 ml PO TID [facility] Last Admin: 01/28/18 14:20 Dose: Not Given Metoprolol Tartrate (Lopressor) 25 mg PO BID [facility] Last Admin: 01/31/18 19:17 Dose: 25 mg Rosuvastatin Calcium (Crestor) 10 mg PO [facility] Last Admin: 01/30/18 22:01 Dose: 10 mg - Labs Labs: 01/31/18 07:25 01/31/18 07:25 PT 17.4 SECONDS (9.7-12.2) H 01/26/18 22:40 INR 1.6 01/26/18 22:40 APTT 32 SECONDS (21-34) 01/26/18 22:40
[2018-01-31] MEDS: (Lantus) Insulin Glargine, Recombinant SC SCH (22:00)
[2018-02-01] MEDS: Albuterol-Ipratrop 3 mg / 0.5 (3 ml) UD INH SCH ×3 (01:18→13:35)
[2018-02-01] MEDS: Acetylcysteine 20% Inhal Soln (4ml) INH SCH ×3 (01:18→13:35)
--- NOTE | 2018-02-01 02:26 | PN ---
DATE: 01/31/2018 SUBJECTIVE: Sahil Cevallos has blood culture positive for yeast and coag negative staff. He is on antibiotics. He is afebrile. No nausea, vomiting. PHYSICAL EXAMINATION: VITAL SIGNS: Blood pressure 146/77, pulse 62, respiratory rate 20, temperature 98.1. LUNGS: Clear. CARDIOVASCULAR SYSTEM: S1, S2, regular. ABDOMEN: Soft. ASSESSMENT: 1. Septicemia, etiology unclear. 2. Chronic kidney disease. 3. Diabetes. 4. Hypertension. 5. Alzheimer's. PLAN: Antibiotics. Possible transfer to subacute rehab. Nasir Puentes MD
[2018-02-01 02:45] LABS: ANCA SCREEN NEGATIVE (NEGATIVE)
--- NOTE | 2018-02-01 05:25 | CON ---
DATE: 01/31/2018 HISTORY OF PRESENT ILLNESS: The patient is a 72-year-old male who was admitted to the hospital because of pneumonia and renal failure. The patient found that he is in retention. He has positive blood cultures. Palomares catheter was inserted. The creatinine dropped from over 3 to 1.5. The patient has a history of prostatism. No dysuria prior to admission and no gross hematuria. No history of surgery. Renal ultrasound did not reveal any hydronephrosis. It showed some kind of chronic renal disease. PHYSICAL EXAMINATION: Revealed, ABDOMEN: Soft. No flank tenderness. No kidney palpable. No suprapubic fullness. GENITOURINARY: Testes in the scrotum. Penis within normal limits. RECTAL: 1.5 plus prostate. IMPRESSION: Chronic renal failure, pneumonia, and positive blood cultures. PLAN: PSA and followup. Taqueria Sandoval MD
[2018-02-01] MEDS: Meropenem 500 MG in Sodium Chloride 0.9% 100 ML IVPB SCH ×2 (05:39→13:59)
[2018-02-01] MEDS: (Novolin R) Insulin Human Regular 100 units/ml vial SC SCH ×3 (08:20→16:22)
--- NOTE | 2018-02-01 08:30 | CON ---
DATE: 01/31/2018 FOLLOWUP The Palomares was removed yesterday. The patient voiding well. No suprapubic fullness. No tenderness. PSA was done and it shows 3.5. We will continue the same treatment. At this time, no need to do any cystoscopy. I will follow him as an outpatient when he get discharged. Taqueria Sandoval MD
[2018-02-01] MEDS: Ferric Sodium Gluconat Complex 125 MG in Sodium Chloride 0.9% 100 ML IVPB SCH (10:00)
--- NOTE | 2018-02-01 15:12 | CP.PCM.PN ---
Subjective - Date & Time of Evaluation Date of Evaluation: 02/01/18 Time of Evaluation: 14:40 - Subjective Subjective: the patient seen and examined Still having cough Less congested Afebrile Patient is awake Objective - Vital Signs/Intake and Output Vital Signs (last 24 hours): Temp Pulse Resp BP Pulse Ox 98.8 F 72 20 123/65 95 02/01/18 08:27 02/01/18 12:00 02/01/18 08:27 02/01/18 09:50 02/01/18 08:27 Intake and Output: 02/01/18 02/01/18 06:59 18:59 Intake Total 220 600 Output Total 450 Balance -230 600 - Medications Medications: Current Medications Acetaminophen (Tylenol 325mg Tab) 325 mg PO Q4 PRN PRN Reason: Pain, Mild (1-3) Last Admin: 01/30/18 09:12 Dose: 325 mg Acetylcysteine (Acetylcysteine 20%) 4 ml INH RQ6 [facility] Last Admin: 02/01/18 13:35 Dose: 4 ml Al Hydrox/Mg Hydrox/Simethicone (Maalox Plus 30 Ml) 30 ml PO Q4 PRN PRN Reason: GI distress Albuterol/Ipratropium (Duoneb 3 Mg/0.5 Mg (3 Ml) Ud) 3 ml INH RQ6 [facility] Last Admin: 02/01/18 13:35 Dose: 3 ml Doxazosin Mesylate (Cardura) 2 mg PO DAILY [facility] Last Admin: 02/01/18 09:50 Dose: 2 mg Fluconazole (Diflucan) 50 mg PO DAILY [facility]; Protocol Stop: 02/03/18 10:01 Last Admin: 02/01/18 09:50 Dose: 50 mg Glimepiride (Amaryl) 2 mg PO DAILY [facility] Last Admin: 02/01/18 09:49 Dose: 2 mg Heparin Sodium (Porcine) (Heparin) 5,000 units SC Q12H [facility] Last Admin: 02/01/18 14:42 Dose: 5,000 units Meropenem 500 mg/ Sodium (Chloride) 100 mls @ 200 mls/hr IVPB Q8H [facility]; Protocol Last Admin: 02/01/18 13:59 Dose: 200 mls/hr Vancomycin/Sodium Chloride (Vancomycin 1 Gm/Ns 200 Ml) 1 gm in 200 mls @ 133 .333 mls/hr IVPB Q24H [facility]; Protocol Stop: 02/03/18 16:01 Last Admin: 01/31/18 16:34 Dose: 133.333 mls/hr Ferric Sodium Gluconate Complex 125 mg/ Sodium Chloride 110 mls @ 110 mls/hr IVPB Q24H [facility] Stop: 02/04/18 11:01 Last Admin: 02/01/18 10:00 Dose: 110 mls/hr Insulin Glargine (Lantus) 20 unit SC [facility] Last Admin: 01/31/18 22:00 Dose: 20 units Insulin Human Regular (Novolin R) [address] [facility]; Protocol Last Admin: 02/01/18 12:07 Dose: 1 unit Magnesium Hydroxide (Milk Of Magnesia) 30 ml PO TID [facility] Last Admin: 01/28/18 14:20 Dose: Not Given Metoprolol Tartrate (Lopressor) 25 mg PO BID [facility] Last Admin: 02/01/18 09:50 Dose: 25 mg Rosuvastatin Calcium (Crestor) 10 mg PO [facility] Last Admin: 01/31/18 21:59 Dose: 10 mg - Labs Labs: 01/31/18 07:25 01/31/18 07:25 PT 17.4 SECONDS (9.7-12.2) H 01/26/18 22:40 INR 1.6 01/26/18 22:40 APTT 32 SECONDS (21-34) 01/26/18 22:40 - Head Exam Head Exam: ATRAUMATIC, NORMOCEPHALIC - ENT Exam ENT Exam: Mucous Membranes Moist - Neck Exam Neck Exam: Normal Inspection - Cardiovascular Exam Cardiovascular Exam: REGULAR RHYTHM - GI/Abdominal Exam GI & Abdominal Exam: Soft, Normal Bowel Sounds Assessment and Plan (1) Pneumonia Assessment & Plan: Continue antibiotics Continue Mucomyst Nebulizer treatment Chest x-ray Status: Acute
[2018-02-01 15:56] VITALS: BP 102/60; TEMP 98; O2SAT 98
[2018-02-01 16:15] VITALS: PULSE 72
[2018-02-01] MEDS: Vancomycin 1 gm/NS 200 ml 1 GM/200 ML BAG IVPB SCH (16:18)
[2018-02-01] MEDS ORDERED: Influenza Vaccine 60 MCG/0.5 ML SYR (3 yr & up) IM ONE (16:35)
--- NOTE | 2018-02-02 21:42 | CP.PCM.DIS ---
Provider - Provider Date of Admission: 01/26/18 23:20 Attending physician: Nasir Puentes MD Diagnosis - Discharge Diagnosis (1) Sepsis Status: Acute Priority: High (2) CAD (coronary artery disease) Status: Chronic (3) DM2 (diabetes mellitus, type 2) Status: Chronic (4) Encephalopathy chronic Status: Chronic (5) HTN (hypertension) Status: Chronic Hospital Course - Lab Results Lab Results: Micro Results 01/29/18 17:43 Blood Blood Culture - Preliminary NO GROWTH AFTER 4 DAYS 01/29/18 14:01 Blood Blood Culture - Preliminary NO GROWTH AFTER 4 DAYS 01/26/18 Unknown Blood Blood Culture - Final Coagulase Neg Staphylococcus 01/26/18 Unknown Blood Gram Stain - Final 01/26/18 Unknown Blood S.aureus & Coag-Neg Staph PNA FISH - Final 01/26/18 Unknown Blood Blood Culture - Final Coagulase Neg Staphylococcus 01/26/18 Unknown Blood Gram Stain - Final 01/27/18 14:15 Urine,Clean Catch Urine Culture - Final No Growth (<1,000 CFU/ML) 01/27/18 14:37 Sputum Gram Stain - Final 01/27/18 14:37 Sputum Sputum Culture - Final Yeast Species Most Recent Lab Values WBC 10.4 K/uL (4.8-10.8) 01/31/18 07:25 RBC 4.21 Mil/uL (4.40-5.90) L 01/31/18 07:25 Hgb 11.1 g/dL (12.0-18.0) L 01/31/18 07:25 Hct 33.3 % (35.0-51.0) L 01/31/18 07:25 MCV 79.1 fL (80.0-94.0) L 01/31/18 07:25 MCH 26.3 pg (27.0-31.0) L 01/31/18 07:25 MCHC 33.2 g/dL (33.0-37.0) 01/31/18 07:25 RDW 14.4 % (11.5-14.5) 01/31/18 07:25 Plt Count 158 K/uL (130-400) 01/31/18 07:25 MPV 9.7 fL (7.2-11.7) 01/31/18 07:25 Neut % (Auto) 72.2 % (50.0-75.0) 01/28/18 08:09 Lymph % (Auto) 17.7 % (20.0-40.0) L 01/28/18 08:09 [place] % (Auto) 8.0 % (0.0-10.0) 01/28/18 08:09 Eos % (Auto) 1.5 % (0.0-4.0) 01/28/18 08:09 Baso % (Auto) 0.6 % (0.0-2.0) 01/28/18 08:09 Neut # (Auto) 6.9 K/uL (1.8-7.0) 01/28/18 08:09 Lymph # (Auto) 1.7 K/uL (1.0-4.3) 01/28/18 08:09 [place] # (Auto) 0.8 K/uL (0.0-0.8) 01/28/18 08:09 Eos # (Auto) 0.1 K/uL (0.0-0.7) 01/28/18 08:09 Baso # (Auto) 0.1 K/uL (0.0-0.2) 01/28/18 08:09 Neutrophils % (Manual) 77 % (50-75) H 01/27/18 10:21 Band Neutrophils % 6 % (0-2) H 01/27/18 10:21 Lymphocytes % (Manual) 10 % (20-40) L 01/27/18 10:21 Monocytes % (Manual) 7 % (0-10) 01/27/18 10:21 Platelet Estimate Normal (NORMAL) 01/27/18 10:21 RBC Morphology Normal 01/27/18 10:21 PT 17.4 SECONDS (9.7-12.2) H 01/26/18 22:40 INR 1.6 01/26/18 22:40 APTT 32 SECONDS (21-34) 01/26/18 22:40 Puncture Site Rra 01/26/18 22:35 pCO2 31 mm/Hg (35-45) L 01/26/18 22:35 pO2 135 mm/Hg (80-100) H 01/26/18 22:35 HCO3 21.5 mmol/L (21-28) 01/26/18 22:35 ABG pH 7.40 (7.35-7.45) 01/26/18 22:35 ABG Total CO2 20.2 mmol/L (22-28) L 01/26/18 22:35 ABG O2 Saturation 99.0 % (95-98) H 01/26/18 22:35 ABG Base Excess -4.5 mmol/L (-2.0-3.0) L 01/26/18 22:35 Carl Test Pos 01/26/18 22:35 ABG Potassium 4.3 mmol/L (3.6-5.2) 01/26/18 22:35 VBG pH 7.23 (7.32-7.43) L 01/26/18 01:40 VBG pCO2 41 mmHg (40-60) 01/26/18 01:40 VBG HCO3 15.6 mmol/L 01/26/18 01:40 VBG Total CO2 18.5 mmol/L (22-28) L 01/26/18 01:40 VBG O2 Sat (Calc) 55.6 % (40-65) 01/26/18 01:40 VBG Base Excess -9.9 mmol/L (0.0-2.0) L 01/26/18 01:40 VBG Potassium 4.6 mmol/L (3.6-5.2) 01/26/18 01:40 A-a O2 Difference 54.0 mm/Hg 01/26/18 22:35 Respiratory Index 0.4 01/26/18 22:35 Sodium 138.0 mmol/l (132-148) 01/26/18 22:35 Chloride 109.0 mmol/L (98-107) H 01/26/18 22:35 Glucose 135 mg/dl (75-110) H 01/26/18 22:35 Lactate 3.0 mmol/L (0.7-2.1) H 01/26/18 22:35 FiO2 32.0 % 01/26/18 22:35 Crit Value Called To Marcy gamez 01/26/18 01:40 Crit Value Called By Cody rt 01/26/18 01:40 Crit Value Read Back Y 01/26/18 01:40 Blood Gas Notified Time 200 01/26/18 01:40 Sodium 139 mmol/L (132-148) 01/31/18 07:25 Potassium 4.5 mmol/L (3.6-5.2) 01/31/18 07:25 Chloride 108 mmol/L (98-107) H 01/31/18 07:25 Carbon Dioxide 23 mmol/L (22-30) 01/31/18 07:25 Anion Gap 12 (10-20) 01/31/18 07:25 BUN 17 mg/dL (9-20) 01/31/18 07:25 Creatinine 1.4 mg/dL (0.8-1.5) 01/31/18 07:25 Est GFR ( Amer) 60 01/31/18 07:25 Est GFR (Non-Af Amer) 50 01/31/18 07:25 POC Glucose (mg/dL) 92 mg/dL (65-110) 02/01/18 16:21 Random Glucose 93 mg/dL (75-110) 01/31/18 07:25 Hemoglobin A1c 6.6 % (4.2-6.5) H D 01/28/18 15:55 Lactic Acid 1.1 mmol/L (0.7-2.1) 01/27/18 18:39 Calcium 8.8 mg/dl (8.6-10.4) 01/31/18 07:25 Phosphorus 2.4 mg/dL (2.5-4.5) L 01/29/18 09:33 Magnesium 1.9 mg/dL (1.6-2.3) 01/29/18 09:33 Iron 16 ug/dL (49-181) L 01/30/18 07:39 TIBC 172 ug/dL (250-450) L 01/30/18 07:39 % Saturation 9 (20-55) L 01/30/18 07:39 Ferritin 116.0 ng/mL 01/30/18 07:39 Total Bilirubin 0.4 mg/dL (0.2-1.3) 01/31/18 07:25 AST 33 U/L (17-59) 01/31/18 07:25 ALT 52 U/L (21-72) 01/31/18 07:25 Alkaline Phosphatase 85 U/L (38-126) 01/31/18 07:25 Troponin I 0.0200 ng/mL (0.00-0.120) 01/26/18 22:40 NT-Pro-B Natriuret Pep 1490 pg/mL (0-900) H 01/26/18 22:40 Total Protein 6.6 g/dL (6.3-8.3) 01/31/18 07:25 Total Protein (PEP) 6.1 g/dL (6.1-8.1) 01/28/18 08:09 Albumin 3.5 g/dL (3.5-5.0) 01/31/18 07:25 Albumin (PEP) 3.1 g/dL (3.8-4.8) L 01/28/18 08:09 Globulin 3.1 gm/dL (2.2-3.9) 01/31/18 07:25 Albumin/Globulin Ratio 1.1 (1.0-2.1) 01/31/18 07:25 Oxcig-7-Nyznzwkwp 0.4 g/dL (0.2-0.3) H 01/28/18 08:09 Wtegu-0-Kafaxqmvt 0.9 g/dL (0.5-0.9) 01/28/18 08:09 Putf-3-Ukxyxdjs 0.4 g/dL (0.4-0.6) 01/28/18 08:09 Rjmh-0-Abgrwsyb 0.5 g/dL (0.2-0.5) 01/28/18 08:09 Gamma Globulins 0.8 g/dL (0.8-1.7) 01/28/18 08:09 Abnorm Protein Band 1 TEST NOT PERFORMED 01/28/18 08:09 Abnorm Protein Band 2 TEST NOT PERFORMED 01/28/18 08:09 Abnorm Protein Band 3 TEST NOT PERFORMED 01/28/18 08:09 Prostate Specific Ag 3.54 ng/mL (0.00-4.0) 01/30/18 07:39 25-OH Vitamin D Total 34.4 NG/ML (30.0-100.0) 01/28/18 08:09 Procalcitonin 4.84 NG/ML (0.19-0.49) H 01/27/18 10:21 TSH 3rd Generation 2.76 mIU/L (0.46-4.68) 01/26/18 22:40 Calcium (PTH Intact) 9.1 mg/dL (8.6-10.3) 01/28/18 08:09 PTH w/Ion &Tot Calcium 29 pg/mL (14-64) 01/28/18 08:09 Arterial Blood Potassium 4.3 mmol/L (3.6-5.2) 01/26/18 22:35 Venous Blood Potassium 4.6 mmol/L (3.6-5.2) 01/26/18 01:40 Urine Color Yellow (YELLOW) 01/27/18 14:15 Urine Clarity Hazy (Clear) 01/27/18 14:15 Urine pH 5.0 (5.0-8.0) 01/27/18 14:15 Ur Specific [place] 1.018 (1.003-1.030) 01/27/18 14:15 Urine Protein 2+ mg/dL (NEGATIVE) H 01/27/18 14:15 Urine Glucose (UA) 2+ mg/dL (Normal) H 01/27/18 14:15 Urine Ketones Negative mg/dL (NEGATIVE) 01/27/18 14:15 Urine Blood 3+ (NEGATIVE) H 01/27/18 14:15 Urine Nitrate Negative (NEGATIVE) 01/27/18 14:15 Urine Bilirubin Negative (NEGATIVE) 01/27/18 14:15 Urine Urobilinogen Normal mg/dL (0.2-1.0) 01/27/18 14:15 Ur Leukocyte Esterase Neg Keven/uL (Negative) 01/27/18 14:15 Urine WBC (Auto) 16 /hpf (0-5) H 01/27/18 14:15 Urine RBC (Auto) 45 /hpf (0-3) H 01/27/18 14:15 Ur Squamous Epith Cells 1 /hpf (0-5) 01/27/18 14:15 Amorphous Sediment Rare /ul (<OCC) H 01/27/18 14:15 Urine Bacteria Rare (<OCC) 01/27/18 14:15 Hyaline Casts 0-2 /lpf (0-2) 01/27/18 14:15 Ur Random Creatinine 72 mg/dL (20-320) 01/31/18 19:37 U Random Total Protein 39.0 mg/dL (0.0-12.0) H 02/01/18 23:20 Ur Random Sodium 60 mmol/L 01/27/18 22:45 Urine Creatinine 170 mg/dL (20-320) 01/28/18 16:57 Urine Total Volume 33.3 mg/dL 01/31/18 19:37 Urine Microalbumin 81.6 mg/dL 01/28/18 16:57 Microalb/Creat Ratio 463 (<30) H 01/31/18 19:37 Vancomycin Trough 10.9 ug/mL (5.0-10.0) H 01/31/18 14:06 Random Vancomycin 11.1 ug/mL 01/28/18 08:09 ELIF & SPEP Interp See note 01/28/18 08:09 Serum Immunofixation Not detected (Not Detected) 01/28/18 08:09 BRENDA Nuclear Membr Pat Negative (Negative) 01/28/18 08:09 ANCA Screen Negative (NEGATIVE) 01/28/18 08:09 c-ANCA Titer TNP 01/28/18 08:09 Proteinase 3 (PR3) <1.0 AI (<1.0) 01/28/18 08:09 p-ANCA Titer TNP 01/28/18 08:09 Atypical p-ANCA Titer TNP 01/28/18 08:09 Myeloperoxidase Ab <1.0 AI (<1.0) 01/28/18 08:09 Complement C3 94.0 mg/dL (88.0-165.0) 01/28/18 08:09 Complement C4 54.0 mg/dL (14.0-44.0) H 01/28/18 08:09 [place]/Lambda Light Chain see note 01/28/18 08:09 Free [place] Light Chains 64.6 mg/L (3.3-19.4) H 01/28/18 08:09 Free Lambda Light [place] 30.6 mg/L (5.7-26.3) H 01/28/18 08:09 Free [place]/Lambda Ratio 2.11 (0.26-1.65) H 01/28/18 08:09 Hep Bs Antigen Negative (NEGATIVE) 01/28/18 08:09 Hepatitis C Antibody Non reactive (Non Reactive) 01/28/18 08:09 Hep C Ab Signal/Cutoff 0.01 (<1.0) 01/28/18 08:09 HIV 1&2 Antibody Screen Negative (NEGATIVE) 01/28/18 08:09 Influenza Typ A,B (EIA) Negative for flu a/b (NEGATIVE) 01/26/18 22:30 Ur L.pneumophila Ag Negative (NEGATIVE) 02/01/18 07:39 - Hospital Course Hospital Course: blood cutrures positive with fever, and is on antibiotics Discharge Exam - Head Exam Head Exam: ATRAUMATIC, NORMOCEPHALIC - Eye Exam Eye Exam: EOMI, Normal appearance, PERRL Pupil Exam: NORMAL ACCOMODATION - ENT Exam ENT Exam: Mucous Membranes Moist, Normal Exam, Normal Oropharynx, TM's Normal Bilaterally - Neck Exam Neck exam: Normal Inspection - Respiratory Exam Respiratory Exam: NORMAL BREATHING PATTERN - Cardiovascular Exam Cardiovascular Exam: REGULAR RHYTHM, +S1, +S2 - GI/Abdominal Exam GI & Abdominal Exam: Firm, Normal Bowel Sounds - Rectal Exam Rectal Exam: NORMAL INSPECTION - Neurological Exam Neurological exam: Abnormal Gait, Alert, CN II-XII Intact - Psychiatric Exam Psychiatric exam: Flat Affect - Skin Skin Exam: Intact Discharge Plan - Discharge Medications Prescriptions: predniSONE [predniSONE Tab] 40 mg PO DAILY 3 Days tab Vancomycin 1 gm/NS 200 ml 1 gm IVPB Q24H 5 Days bag - Follow Up Plan Condition: GUARDED Disposition: HOME/ ROUTINE Instructions: Atypical Pneumonia (Mycoplasma and Viral) (DC) Additional Instructions: PLACE UNDER THE SERVICE OF DR PUENTES AT [facility]---CALL FOR ADMITTING ORDER CONTINUE HOME MEDICATION ORDER NEW PRESCRIPTION VANCO 1 G /200 ML IVPB Q24H FOR 5 DAYS MERREM 500 MG Q8 H IVPB FOR 5 DAYS PREDNISONE 40 MG PO DAILY FOR 3 DAYS NEB TX AT THE NURSING Q6H AND CHEST X RAY AND SEND RESULT TO DR PUENTES [facility] PER FACILITY PROTOCOL ACTIVITY TOLERATED AND FACILITY PROTOCOL CALL DR IBARRA FOR FURTHER ORDER Referrals: Angus Dejesus MD [Staff Provider] - Nasir Puentes MD [Staff Provider] - Alessandro Olmedo MD [Staff Provider] -
--- NOTE | 2018-02-03 05:34 | DS ---
DISCHARGE DIAGNOSES: 1. Gram-positive septicemia. 2. Chronic kidney disease. 3. Diabetes. 4. Hypertension. 5. Hyperlipidemia. 6. Alzheimer. HOSPITAL COURSE: This is a 72-year-old male with a history of diabetes, hypertension, hyperlipidemia who has been in shelter, and he was found to have fever, chills, and rigors. Blood culture is positive for coagulase-negative Staphylococcus. The patient was treated with antibiotics. He is afebrile. He is being discharged with outpatient followup. CONDITION UPON DISCHARGE: Stable. PHYSICAL EXAMINATION: VITAL SIGNS: Blood pressure 102/60, pulse 65, respiratory rate 20, temperature 98. LUNGS: Bilateral scattered rhonchi. CARDIOVASCULAR SYSTEM: S1 and S2 are regular. ABDOMEN: Soft. ASSESSMENT: 1. Gram-positive septicemia. 2. Hypertension. 3. . 4. Type 2 diabetes. PLAN: Discharge the patient. Nasir Puentes MD
== END 2018-02-01 17:25 | DRG 871 ==
LOC: C.ER 21:55 → SUPCPDRO 21:55 → C.9E 23:20 → C.6T 23:38
PROVIDERS: ADMIT Internal Medicine; ATTEND Internal Medicine
DX: A41.1 Sepsis due to other specified staphylococcus (principal); J18.9 Pneumonia, unspecified organism; N17.0 Acute kidney failure with tubular necrosis; I13.0 Hypertensive heart and chronic kidney disease with heart failure and stage 1 through stage 4 chronic kidney disease, or unspecified chronic kidney disease; I50.32 Chronic diastolic (congestive) heart failure; G93.40 Encephalopathy, unspecified; N39.0 Urinary tract infection, site not specified; D64.9 Anemia, unspecified; E11.22 Type 2 diabetes mellitus with diabetic chronic kidney disease; E78.5 Hyperlipidemia, unspecified; E86.0 Dehydration; F02.80 Dementia in other diseases classified elsewhere, unspecified severity, without behavioral disturbance, psychotic disturbance, mood disturbance, and anxiety; G30.9 Alzheimer's disease, unspecified; I25.10 Atherosclerotic heart disease of native coronary artery without angina pectoris; I50.9 Heart failure, unspecified; N18.3 Chronic kidney disease, stage 3 (moderate); Z86.73 Personal history of transient ischemic attack (TIA), and cerebral infarction without residual deficits; Z87.891 Personal history of nicotine dependence; Z95.1 Presence of aortocoronary bypass graft; R65.20 Severe sepsis without septic shock; N40.1 Benign prostatic hyperplasia with lower urinary tract symptoms